=== PATIENT | male | born 1950 | race Caucasian/White ===

== ENCOUNTER → 2017-06-20 | Outpatient (CLI) | payer MEDICARE ==
[2017-06-20 14:08] LABS: CH 32.3; CHCM 33.7; HCT 49.4 % (39.0-53.0); HGB 16.1 gm/dL (13.0-17.5); MCH 31.4 pg (25.0-35.0); MCHC 32.6 g/dL (31.0-37.0); MCV 96.3 fL (80.0-100.0); Mean Platelet Volume 8.3; RBC 5.13 m/uL (4.30-5.90); RDW 14.2 % (11.5-15.5); WBC 7.2 k/uL (3.8-10.6)
[2017-06-20 15:44] LABS: ALT 150 U/L (21-72); AST 107 U/L (17-59); Alkaline Phosphatase 130 U/L (38-126); Anion Gap 9 mmol/L; Blood Urea Nitrogen 15 mg/dL (9-20); Calcium 9.7 mg/dL (8.4-10.2); Carbon Dioxide 24 mmol/L (22-30); Chloride 109 mmol/L (98-107); Cholesterol 205 mg/dL (<200); Glucose 90 mg/dL (74-99); HDL Cholesterol 41 mg/dL (40-60); Non-African American GFR(MDRD) 55 (>60 ml/min/1.73 sqM); Potassium 4.7 mmol/L (3.5-5.1); Sodium 142 mmol/L (137-145); Total Bilirubin 0.7 mg/dL (0.2-1.3)
[2017-06-20 20:11] LABS: Hepatitis C Virus IgG Ab Reactive (Negative)
== END | disposition home or self-care (01) ==
LOC: LABWHC1 13:09
PROVIDERS: ATTEND Internal Medicine
DX: Z00.00 Encounter for general adult medical examination without abnormal findings (principal); J44.9 Chronic obstructive pulmonary disease, unspecified; B18.2 Chronic viral hepatitis C; Z12.5 Encounter for screening for malignant neoplasm of prostate
CPT/HCPCS: 86803; 80061; 80053; 85027; 36415; G0103

== ENCOUNTER → 2017-06-21 | Outpatient (CLI) | payer MEDICARE | END | disposition home or self-care (01) | LOC: CPPFTMAIN 11:44 | PROVIDERS: ATTEND Internal Medicine | DX: J44.9 Chronic obstructive pulmonary disease, unspecified (principal); R94.2 Abnormal results of pulmonary function studies | CPT/HCPCS: 94060; 94726; 94729 ==

== ENCOUNTER → 2018-09-19 | Outpatient (CLI) | payer OTHER ==
--- NOTE | 2018-09-19 16:48 | US ---
EXAMINATION TYPE: US liver DATE OF EXAM: 09/19/2018 COMPARISON: CT 01/08/2016 CLINICAL HISTORY: Hep C. History of right side RCC. Right kidney and gallbladder surgically absent EXAM MEASUREMENTS: Liver Length: 12.1 cm Gallbladder Wall: Surgically absent CBD: 0.4 cm Right Kidney: Surgically absent Pancreas: Obscured by bowel gas Liver: Coarse, heterogeneous echotexture. Slightly nodular left lobe Gallbladder: Surgically absent Evidence for sonographic Nicole's sign: No CBD: wnl as visualized Right Kidney: Surgically absent IMPRESSION: 1. Some subtle nodularity normal sized liver. Cirrhosis should be considered.
== END | disposition home or self-care (01) ==
LOC: RADUSWWP 08:04
DX: K76.9 Liver disease, unspecified (principal); B19.20 Unspecified viral hepatitis C without hepatic coma
CPT/HCPCS: 76705

== ENCOUNTER → 2018-11-07 | Outpatient (CLI) | payer OTHER ==
[2018-11-07 12:52] LABS: Basophils % (A) 1 %; Eosinophils # (A) 0.3 k/uL (0-0.7); Eosinophils % (A) 5 %; HCT 46.7 % (39.0-53.0); HGB 14.7 gm/dL (13.0-17.5); Lymphocytes # (A) 1.6 k/uL (1.0-4.8); Lymphocytes % (A) 23 %; MCH 29.7 pg (25.0-35.0); MCHC 31.4 g/dL (31.0-37.0); MCV 94.6 fL (80.0-100.0); Mean Platelet Volume 7.4; Monocytes # (A) 0.3 k/uL (0-1.0); Monocytes % (A) 5 %; Neutrophils # (A) 4.5 k/uL (1.3-7.7); Neutrophils % (A) 66 %; Platelet Count 173 k/uL (150-450); RBC 4.94 m/uL (4.30-5.90); RDW 13.5 % (11.5-15.5); WBC 6.9 k/uL (3.8-10.6)
[2018-11-08 04:15] LABS: Albumin 4.4 g/dL (3.80-4.90); Albumin/Globulin Ratio 1.63 (1.20-2.10); Anion Gap 9.9 mmol/L (4.00-12.00); Calcium 9.4 mg/dL (8.7-10.3); Carbon Dioxide 23.1 mmol/L (21.6-31.8); Globulin 2.7 g/dL (1.6-3.3); Potassium 4.6 mmol/L (3.5-5.5); Total Bilirubin 0.4 mg/dL (0.3-1.2); Total Protein 7.1 g/dL (6.2-8.2)
== END | disposition home or self-care (01) ==
LOC: LABWHC1 11:32
DX: B18.2 Chronic viral hepatitis C (principal)
CPT/HCPCS: 36415; 80053; 82105; 85025; 87522

== ENCOUNTER → 2018-11-08 | Outpatient (CLI) | payer OTHER | END | disposition home or self-care (01) | LOC: LABWHC1 10:44 | DX: B18.2 Chronic viral hepatitis C (principal) | CPT/HCPCS: 36415; 86376 ==

== ENCOUNTER → 2021-06-24 | Outpatient (CLI) | payer MEDICARE ==
[2021-06-25 02:58] LABS: Hepatitis A Antibody IgM Non-Reactive (Non-Reactive); Hepatitis B Core IgM Non-Reactive (Non-Reactive); Hepatitis B Surface Antigen Non-Reactive (Non-Reactive); Hepatitis C IgG Antibody Reactive (Non-Reactive)
== END | disposition home or self-care (01) ==
LOC: LABWHC1 10:50
PROVIDERS: ATTEND Internal Medicine
DX: Z72.51 High risk heterosexual behavior (principal)
CPT/HCPCS: 36415; 80074; 87522

== ENCOUNTER → 2021-07-01 | Outpatient (CLI) | payer MEDICARE ==
--- NOTE | 2021-07-01 13:34 | XR ---
EXAMINATION TYPE: XR KUB DATE OF EXAM: 07/01/2021 COMPARISON: NONE HISTORY: Hematuria TECHNIQUE: One view abdominal series FINDINGS: The osseous structures are intact. The bowel gas pattern is nonspecific. Retained fecal debris along the right colon. Hypertrophic and degenerative changes spine. Arthropathy with. Postsurgical change right upper quadrant.. IMPRESSION: 1. Nonspecific abdomen.
== END | disposition home or self-care (01) ==
LOC: RADXRWHC 12:59
PROVIDERS: ATTEND Internal Medicine
DX: R31.9 Hematuria, unspecified (principal)
CPT/HCPCS: 74018

== ENCOUNTER → 2021-07-21 | Outpatient (CLI) | payer MEDICARE ==
--- NOTE | 2021-07-21 18:39 | US ---
EXAMINATION TYPE: US kidneys/renal and bladder DATE OF EXAM: 07/21/2021 COMPARISON: None CLINICAL HISTORY: 71-year-old male R31.29 microscopic hematuria/ history of right renal CA with right kidney surgically removed TECHNIQUE: Multiple sonographic images of the kidneys and bladder are obtained. FINDINGS: EXAM MEASUREMENTS: Right Kidney: Surgically absent Left Kidney: 12.8 x 5.4 x 4.9 cm Right Kidney: Surgically absent Left Kidney: Extrarenal pelvis is noted with a small parapelvic cyst measuring 1.1 x 1.1 cm . No hafsa ceal dilatation to suggest hydronephrosis. Bladder: Trabeculated and thickened bladder wall. Enlarged prostate. The median lobe protrudes into t he base of the bladder. Possible bladder wall irregularity at right ureteral junction measuring 1.0 c m Bilateral Jets seen: No IMPRESSION: 1. Status post right nephrectomy. 2. No hydronephrosis on the left. 3. Trabeculated and mildly thickened bladder wall suggesting bladder wall hypertrophy from chronic bl adder outlet obstruction. Correlate for symptoms of BPH especially given the hypertrophy medially lob e of the prostate gland protruding into the base of the bladder. Correlate with PSA values. 4. A 1 cm mural based nodule near the right ureteral orifice. Correlate with urine cytology and direc t visualization as clinically indicated to exclude a urothelial lesion.
== END | disposition home or self-care (01) ==
LOC: RADUSWWP 15:16
PROVIDERS: ATTEND Internal Medicine
DX: N32.89 Other specified disorders of bladder (principal); N40.0 Benign prostatic hyperplasia without lower urinary tract symptoms
CPT/HCPCS: 76770

== ENCOUNTER → 2021-07-30 | Outpatient (CLI) | payer MEDICARE ==
--- NOTE | 2021-07-30 16:26 | CTL ---
EXAMINATION TYPE: CT Low Dose Lung DATE OF EXAM ORDERED: 07/30/2021 HISTORY: . Lung cancer screening CT DLP: 98.[address] CTDI: 2.5 mGy Automated exposure control for dose reduction was used. SCREENING VISIT: Baseline COMPARISON: None TECHNIQUE: Low dose computed tomography scan was performed through the chest at 1 mm thick sections a nd reconstructed images in multiple planes at 1 mm and [address] DIAGNOSTIC QUALITY: Satisfactory FINDINGS: LUNG NODULES: Present, detailed below: In the right middle lobe there is 5.3 x 4.2 mm nodule axial image 174 LUNGS: COPD: Severity: Mild Fibrosis: Severity: ModerateBiapical Lymph nodes: No greater than 1 cm Other findings: None RIGHT PLEURAL SPACE: Effusion: None Calcification: None Thickening: None Pneumothorax: None LEFT PLEURAL SPACE: Effusion: None Calcification: None Thickening: None Pneumothorax: None HEART: Heart Size: Normal Coronary calcification: None Pericardial effusion: None OTHER FINDINGS: Upper abdomen: Pneumobilia is present which was present on [address] Gallbladder is surgical ly absent. Bony thorax: No significant abnormality. Supraclavicular region: No significant abnormality. Other: Subareolar flame-shaped gynecomastia is present. IMPRESSION: Mild emphysematous change. Mild biapical pleural/parenchymal scarring. Single small right middle lobe nodule. CT LUNG RAD AND CT CHEST RECOMMENDATION: Lung-Rad 2 Benign Appearance or Behavior: Continue annual sc reening with LDCT in 12 months. S Modifier (other clinically significant findings): None
== END | disposition home or self-care (01) ==
LOC: RADCTMAIN 15:16
PROVIDERS: ATTEND Internal Medicine
DX: Z12.2 Encounter for screening for malignant neoplasm of respiratory organs (principal); J98.4 Other disorders of lung; J43.9 Emphysema, unspecified; R91.1 Solitary pulmonary nodule
CPT/HCPCS: 71271

== ENCOUNTER → 2021-08-27 | Outpatient (CLI) | payer MEDICARE ==
--- NOTE | 2021-08-27 11:14 | CT ---
EXAMINATION TYPE: CT urogram wo/w con DATE OF EXAM: 08/27/2021 COMPARISON: CT abdomen and pelvis January 08, 2016 HISTORY: Microscopic hematuria. Bladder neoplasm. History of nephrectomy for renal cancer. CT DLP: 1671.3 mGycm, Automated Exposure Control for Dose Reduction was Utilized. CONTRAST: CT scan of the abdomen and pelvis is performed without oral and without and with IV Contrast, patient injected with 100 ml mL of Isovue 300. Urogram protocol with 3-D reconstructed images created on an independent workstation and reviewed FINDINGS: KUB: Right sided nephrectomy changes redemonstrated. Noncontrast images show no left-sided renal radha culi. Postcontrast images show left-sided corticomedullary uptake and excretion with some left pelvic fullness but no calyceal dilatation. There are tiny central parapelvic cysts. Findings consistent wi th extrarenal pelvis. There is satisfactory opacification of the left ureter on delayed images withou t calculus or mass. Urinary bladder shows no suspicious intraluminal mass or wall thickening. No intr aluminal calculus in the bladder. LUNG BASES: No significant abnormality is appreciated. LIVER/GB: Central pneumobilia is redemonstrated. Cholecystectomy clips are again seen. PANCREAS: No significant abnormality is seen. SPLEEN: No significant abnormality is seen. ADRENALS: No significant abnormality is seen. BOWEL: A few sigmoid colonic diverticula. Focal fluid-filled slightly dilated small bowel loop in the right mid abdomen anteriorly near site of surgical sutures is redemonstrated. No additional small or large bowel dilatation PROSTATE/SEMINAL VESICLES: Mildly enlarged prostate consistent with BPH bulging and posterior bladder base. LYMPH NODES: No greater than 1cm abdominal or pelvic lymph nodes are appreciated. OSSEOUS STRUCTURES: Mild disc space narrowing and mild to moderate anterior spurring L3-L4 level. Fac et arthropathy lower lumbar levels. OTHER: Mild to moderate calcified plaque of the aorta extends into iliac branch vessels. Asymmetric r ight rectus muscular atrophy redemonstrated. IMPRESSION: No suspicious findings seen to account for patient's symptoms of new microhematuria. No s ignificant change from prior CT.
== END | disposition home or self-care (01) ==
LOC: RADCTMAIN 08:43
PROVIDERS: ATTEND Urology
DX: R31.29 Other microscopic hematuria (principal); Z90.5 Acquired absence of kidney; Z85.528 Personal history of other malignant neoplasm of kidney
CPT/HCPCS: 82565; 84520; 74178; 36415; 74400; Q9967

== ENCOUNTER → 2021-09-04 | Outpatient (CLI) | payer MEDICARE ==
--- NOTE | 2021-09-04 08:24 | US ---
EXAMINATION TYPE: US abdomen complete DATE OF EXAM: 09/04/2021 COMPARISON: NONE CLINICAL HISTORY: R74.8 ELEVATED ALKALINE PHOSPHATASE LEVEL. Patient has history of renal cancer, rem emmanuel GB. EXAM MEASUREMENTS: Liver Length: 12.7 cm Gallbladder Wall: Surgically absent CBD: 0.4 cm Spleen: 10.7 cm Right Kidney: Surgically absent Left Kidney: 12.9x6.4x6.0 cm Pancreas: wnl Liver: wnl Gallbladder: Surgically absent Evidence for sonographic Nicole's sign: No CBD: wnl Spleen: wnl Right Kidney: Surgically absent Left Kidney: extrarenal pelvis, 1.1x0.8x0.7cm parapelvic cyst Upper IVC: wnl Abd Aorta: Slightly calcified. The liver is homogenous. The intrahepatic portion of the IVC and proximal abdominal aorta are within normal limits. There is no evidence of cholelithiasis. Common bile duct is unremarkable. The visu alized portions of the pancreas are homogenous. The spleen is unremarkable. No renal lesions are se en. IMPRESSION: Right kidney is surgically absent. Left parapelvic cyst versus extrarenal pelvis.
== END | disposition home or self-care (01) ==
LOC: RADUSWWP 07:25
PROVIDERS: ATTEND Internal Medicine
DX: Z85.528 Personal history of other malignant neoplasm of kidney (principal); Z90.49 Acquired absence of other specified parts of digestive tract; Z90.5 Acquired absence of kidney
CPT/HCPCS: 76700

== ENCOUNTER → 2023-01-06 | Outpatient (CLI) | payer MEDICARE ==
[2023-01-06 12:11] LABS: INR 1.1 (<1.2); Partial Thromboplastin Time 23.4 sec (22.0-30.0); Prothrombin Time 11.3 sec (9.0-12.0)
[2023-01-06 14:59] LABS: Basophils # (A) 0.03 X 10*3/uL (0.00-0.10); Basophils % (A) 0.4 %; Eosinophils # (A) 0.38 X 10*3/uL (0.04-0.35); Eosinophils % (A) 5.2 %; HCT 34.4 % (39.6-50.0); HGB 10.2 g/dL (13.0-17.0); Immature Grans, Automated 0.7 %; Lymphocytes # (A) 0.75 X 10*3/uL (0.90-5.00); Lymphocytes % (A) 10.3 %; MCH 28.3 pg (27.0-32.0); MCHC 29.7 g/dL (32.0-37.0); MCV 95.3 fL (80.0-97.0); Mean Platelet Volume 11.4 fL (9.5-12.2); Monocytes % (A) 6.9 %; NRBC Per 100 WBC 0 /100 WBCS (0.0-0.0); Neutrophils # (A) 5.55 X 10*3/uL (1.80-7.70); Neutrophils % (A) 76.5 %; Platelet Count 302 X 10*3/uL (140-440); RBC 3.61 X 10*6/uL (4.40-5.60); RDW 17.1 % (11.5-14.5); WBC 7.26 X 10*3/uL (4.50-10.00)
[2023-01-06 15:48] LABS: African American GFR (CKD) 65.2 (60.0-200.0); Albumin 3.1 g/dL (3.8-4.9); Albumin/Globulin Ratio 0.65 (1.60-3.17); Anion Gap 14.4 mmol/L (10.00-18.00); BUN/Creat Ratio 11.98 Ratio (12.00-20.00); Blood Urea Nitrogen 15.1 mg/dL (9.0-27.0); Calcium 9.3 mg/dL (8.7-10.3); Carbon Dioxide 20.6 mmol/L (20.0-27.5); Globulin 4.8 g/dL (1.6-3.3); Non-African American GFR(CKD) 56.2 (60.0-200.0); Potassium 4.7 mmol/L (3.5-5.5); Total Bilirubin 1.4 mg/dL (0.30-1.20); Total Protein 7.9 g/dL (6.2-8.2)
== END | disposition home or self-care (01) ==
LOC: LABWHC1 11:07
PROVIDERS: ATTEND Internal Medicine Hematology & Oncology
DX: N18.9 Chronic kidney disease, unspecified (principal); R16.0 Hepatomegaly, not elsewhere classified; R18.8 Other ascites
CPT/HCPCS: 36415; 80053; 82105; 83615; 85025; 85610; 85730

== ENCOUNTER 2023-01-20 08:40 | Day surgery (SDC) | payer MEDICARE ==
[~2023-01-20 08:40] MED LIST: ALPRAZolam 0.25 MG TAB PO PRN; HYDROmorphone 0.5 MG/0.5 ML SYRINGE IVP PRN; MICROFIBRILLAR COLLAGEN HEMOST 0.5 GM PACK TOPICAL ONE
[2023-01-20 09:29] LABS: INR 1.2 (<1.2); Prothrombin Time 12.2 sec (9.0-12.0)
[2023-01-20 09:30] LABS: Mean Platelet Volume 8.3; Platelet Count 302 k/uL (150-450)
[2023-01-20] MEDS: ALBUMIN HUMAN 25% 50 ML in EMPTY BAG 1 BAG IVPB SCH ×2 (10:46→10:47)
--- NOTE | 2023-01-20 12:07 | US ---
EXAMINATION TYPE: US paracentesis abd w/image DATE OF EXAM: 01/20/2023 10:47 AM CLINICAL INDICATION:Male, 72 years old with history of K76.89; COMPARISON: CT 12/29/2022 ATTENDING: Dr. oRbbi Gant PROCEDURE: Informed consent was obtained. The risks of the procedure were extensively explained incl uding risk of damage to surrounding bowel with perforation and need for additional procedures. Proced ure was performed in the ultrasound procedure suite. Ultrasound imaging of the abdomen demonstrate as citic fluid. An appropriate access site was localized to the right lower abdomen. Timeout was taken p er protocol. The skin was prepped and draped in the usual sterile fashion and then locally anesthetiz ed with 1% lidocaine. The peritoneal cavity was then accessed via a 5-Kazakh one-step needle/cathete r. Approximately 60 cc of clear straw-colored fluid was obtained and sent to lab for analysis Postpr ocedural imaging of the abdomen demonstrate a minimal amount of abdominal fluid. Patient tolerated procedure well without immediate complication. Hemostasis at the procedural site w as obtained with a sterile bandage placed. The patient was monitored in the holding area following th e procedure and was subsequently sent to CT for CT guided biopsyin stable condition. IMPRESSION: Ultrasound guided paracentesis, with approximately 60 cc of clear straw-colored fluid drained for eleuterio gnostic purposes. Pathology results pending. No immediate complications were evident.
--- NOTE | 2023-01-20 12:36 | CT ---
EXAMINATION TYPE: CT biopsy liver DATE OF EXAM: 01/20/2023 11:53 AM CLINICAL INDICATION:Male, 72 years old with history of K76.89; COMPARISON: CT chest and pelvis 12/29/2022 CT DLP: 1675 mGycm, Automated exposure control for dose reduction was used. Contrast used: none Oral contrast used: none ATTENDING: Dr. Robbi Gant TECHNIQUE: CT guided percutaneous biopsy of using coaxial method. Moderate conscious sedation was used. The chani ent was monitored by a qualified trained nurse independent of the Radiologist during sedation. The Ra diologist intra-service time with the patient under sedation was [address] or more CT dose redu ction strategies were utilized during this examination. Total fluoroscopy time was seconds. FINDINGS: The procedure was explained to the patient including risks of bleeding, bruising, infection, damage t o nearby organs and need for additional therapy including potential surgery. All questions were answ ered and consent was obtained. The previous studies were reviewed. The patient was placed on the CT couch in the left lateral decub itus The overlying skin was marked and prepped using sterile method. Timeout was taken per protocol. Following administration of Dilaudid and local anesthesia a coaxial needle was introduced on the lakes[place] er sixth hepatic segment. The coaxial needle tip was directed into the mass with CT guidance. Multi ple coaxial biopsies were then obtained. Gelfoam was administered. The biopsy samples were sent in ap propriate containers for lab analysis. Following the procedure the needle was removed and sterile dressing was applied to the percutaneous site. Post biopsy imaging demonstrated no evidence of hemor rhage, gas consistent with Gelfoam noted. Patient was taken for postprocedure observation in stable c ondition. IMPRESSIONS: Status post percutaneous liver mass biopsy as described above. Pathology results pending.
[2023-01-20 16:13] VITALS: RESP 18
[2023-01-20 16:19] VITALS: BP 112/68; PULSE 87; TEMP 97.5
[2023-01-20 23:28] LABS: Appearance,BF Slightly Hazy
[2023-01-21 00:59] LABS: Albumin, Fluid Source Peritoneal Fluid
== END 2023-01-20 16:45 | disposition home or self-care (01) ==
LOC: RADPROMAIN 08:40 → 6NMEDSUR 10:35 → RADPROMAIN 16:45
PROVIDERS: ATTEND Internal Medicine Hematology & Oncology
DX: K76.89 Other specified diseases of liver (principal); R18.8 Other ascites
CPT/HCPCS: 82042; 89050; 85049; 85610; 87070; 87205; 87075; 36415; 49083; 47000; J1170; 77012; 88108; 88305; 88307; 88341; 88342

== ENCOUNTER 2023-01-25 12:53 | Inpatient (IN) | payer MEDICARE ==
--- NOTE | 2023-01-25 14:41 | ED ---
Nausea/Vomiting/Diarrhea HPI - General Source: patient, family, RN notes reviewed Mode of arrival: ambulatory Limitations: no limitations - History of Present Illness MD complaint: nausea, vomiting, diarrhea, abdominal pain <Verna López - Last Filed: 01/25/23 14:38> <Ryann Blanc - Last Filed: 01/25/23 19:41> - General Chief complaint: Nausea/Vomiting/Diarrhea Stated complaint: Weakness Time Seen by Provider: 01/25/23 14:38 - History of Present Illness Initial comments: This is a 72-year-old male who presents to the emergency department for abdominal pain, nausea, vomiting, and confusion. Patient presents with his friend who states that he seems to be more confused than normal. He is also a jaundiced-appearing to him. On 01/20, the patient had a paracentesis and a liver biopsy. He reportedly had 4 L of fluid drained. He also states that he has a large mass on the liver and the biopsy is currently pending. (Verna López) HPI as above reviewed. Patient also reports cough and workup by triage nurse does note low-grade fever and mild tachycardia. He reports that since being discharged she has noticed and increase in yellow skin and significant darkening of his urine to a dark reddish orange color. His friend at the bedside also does note some periods of confusion. In addition to his newly diagnosed metastatic liver cancer he has a past medical history significant for renal cell carcinoma status post right nephrectomy, COPD, hypertension and arthritis. (Ryann Blanc) - Related Data Home Medications Medication Instructions Recorded Confirmed No Known Home Medications 01/25/23 01/25/23 Allergies Allergy/AdvReac Type Severity Reaction Status Date / Time No Known Allergies Allergy Verified 01/25/23 16:25 Review of Systems ROS Other: All systems not noted in ROS Statement are negative. <Verna López - Last Filed: 01/25/23 14:38> ROS Other: All systems not noted in ROS Statement are negative. <Ryann Blanc - Last Filed: 01/25/23 19:41> ROS Statement: Those systems with pertinent positive or pertinent negative responses have been documented in the HPI. Past Medical History Past Medical History: Cancer, COPD, Hypertension, Osteoarthritis (OA) Additional Past Medical History / Comment(s): hx. of kidney & skin cancer, augustus tigo, liver mass History of Any Multi-Drug Resistant Organisms: None Reported Past Surgical History: Appendectomy, Cholecystectomy Additional Past Surgical History / Comment(s): RIGHT NEPHRECTOMY, "bile duct cut in 2" with gallbladder surgery Past Anesthesia/Blood Transfusion Reactions: No Reported Reaction Past Psychological History: No Psychological Hx Reported Smoking Status: Former smoker Past Alcohol Use History: None Reported Past Drug Use History: None Reported - Past Family History Sister(s) Family Medical History: Deep Vein Thrombosis (DVT) Additional Family Medical History / Comment(s): BLOOD CLOTS <Verna Lóepz - Last Filed: 01/25/23 14:38> General Exam Limitations: no limitations <Verna López - Last Filed: 01/25/23 14:38> Limitations: no limitations General appearance: alert, in no apparent distress Head exam: Present: atraumatic, normocephalic, normal inspection Eye exam: Present: normal appearance, PERRL, EOMI, scleral icterus. Absent: conjunctival injection, periorbital swelling ENT exam: Present: normal exam, mucous membranes moist Respiratory exam: Present: rhonchi (Scattered), decreased breath sounds (Bibasal). Absent: respiratory distress, wheezes, rales, stridor, accessory muscle use Cardiovascular Exam: Present: normal rhythm, tachycardia (mild), normal heart sounds. Absent: systolic murmur, diastolic murmur, rubs, gallop, clicks GI/Abdominal exam: Present: soft, distended, normal bowel sounds. Absent: tenderness Expanded GI/Abdominal exam: Present: ascites Rectal exam: Present: deferred Extremities exam: Present: pedal edema (Trace bilateral) Back exam: Present: normal inspection Neurological exam: Present: alert, oriented X3, other (Forgetful at times) Psychiatric exam: Present: flat affect Skin exam: Present: warm, dry, other (Jaundiced). Absent: rash <Ryann Blanc - Last Filed: 01/25/23 19:41> - General Exam Comments Initial Comments: Visual Physical Exam Vital signs reviewed General: Well-appearing, nontoxic, no acute distress. Head: Normocephalic, atraumatic Eyes: PERRLA, EOMI ENT: Airway patent Chest: Nonlabored breathing Skin: No visual rash, normal skin tone Neuro: Alert and oriented 3 Musculoskeletal: No gross abnormalities (Vogley,Verna) Course Vital Signs 01/25/23 01/25/23 13:06 18:27 Temperature 99.8 F H Pulse Rate 117 H 99 Respiratory 22 17 Rate Blood Pressure 93/54 94/50 O2 Sat by Pulse 97 96 Oximetry Procedures - Sepsis Sepsis Focused Exam #1 Time Sepsis Criteria Met: 16:42 Sepsis Focused Exam Date: 01/25/23 Sepsis Focused Exam Time: 16:42 Sepsis Focused Exam Complete: Yes Capillary Refill: < 2 Seconds: Fingers Peripheral Pulses: Normal: Radial (R) Skin Color: Jaundice Respiratory Exam: rhonchi (scattered) Cardiovascular Exam: tachycardia (mild), normal heart sounds <Ryann Blanc - Last Filed: 01/25/23 19:41> Medical Decision Making - Lab Data Result diagrams: 01/25/23 15:42 01/25/23 15:42 - Radiology Data Radiology results: report reviewed, image reviewed <Ryann Blanc - Last Filed: 01/25/23 19:41> - Medical Decision Making Was pt. sent in by a medical professional or institution (, PA, NURSES SUPERINTENDENT, urgent care, hospital, or fdc...) When possible be specific @ -No Did you speak to anyone other than the patient for history (EMS, parent, family, police, friend...)? What history was obtained from this source @ -No Did you review nursing and triage notes (agree or disagree)? Why? @ -I reviewed and agree with nursing and triage notes Were old charts reviewed (outside hosp., previous admission, EMS record, old EKG, old radiological studies, urgent care reports/EKG's, fdc records)? Report findings @ -Yes, I reviewed CT abdomen chest and pelvis from 01/13/2023 and most recent labs from December 2022 Differential Diagnosis (chest pain, altered mental status, abdominal pain women, abdominal pain men, vaginal bleeding, weakness, fever, dyspnea, syncope, headache, dizziness, GI bleed, back pain, seizure, CVA, palpatations, mental health, musculoskeletal)? @ -Differential Abdominal Pain Men: Appendicitis, cholecystitis, diverticulosis, ischemic bowel, pancreatitis, hepatitis, UTI, gastroenteritis, AAA, incarcerated hernia, bowel obstruction, constipation, inflammatory bowel, hepatitis, peptic ulcer disease, splenic infarction, perforated viscus, testicular torsion, this is not meant to be an all-inclusive list Differential Altered Mental Status: Hypoglycemia, DKA, hypercapnia, ETOH, overdose, CO poisoning, trauma, myxedema coma, HTN encephalopathy, infection, encephalitis, psychosis, intercranial he morrhage, hepatic encephalopathy, meningitis, CVA, this is not meant to be an all-inclusive list EKG interpreted by me (3pts min.). @ -None done X-rays interpreted by me (1pt min.). @ -Chest x-ray two-view: No acute cardiopulmonary process, and no effusion, focal consolidation or atelectasis. CT interpreted by me (1pt min.). @ -CT abdomen and pelvis without contrast: Large new mass to liver consistent with abscess when clinically correlated and trace atelectasis. No obstruction or free air. U/S interpreted by me (1pt. min.). @ -None done What testing was considered but not performed or refused? (CT, X-rays, U/S, labs)? Why? @ -CT abdomen and pelvis with contrast considered but deferred due to impaired renal function What meds were considered but not given or refused? Why? @ -None Did you discuss the management of the patient with other professionals (professionals i.e. , PA, NURSES SUPERINTENDENT, lab, RT, psych nurse, social service assistant, php programmer, teacher, air defence officer, case finishing machine adjuster)? Give summary @ -No Was smoking cessation discussed for >3mins.? @ -No Was critical care preformed (if so, how long)? @ -No Were there social determinants of health that impacted care today? How? (Homelessness, low income, unemployed, alcoholism, drug addiction, transportation, low edu. Level, literacy, decrease access to med. care, correction, rehab)? @ -No Was there de-escalation of care discussed even if they declined (Discuss DNR or withdrawal of care, Hospice)? DNR status @ -No What co-morbidities impacted this encounter? (DM, HTN, Smoking, COPD, CAD, Cancer, CVA, ARF, Chemo, Hep., AIDS, mental health diagnosis, sleep apnea, morbid obesity)? @ -Recently diagnosed metastatic liver cancer Was patient admitted / discharged? Hospital course, mention meds given and route, prescriptions, significant lab abnormalities, going to OR and other pertinent info. @ - 72-year-old male who presents to the emergency department for abdominal pain, nausea, vomiting, and confusion. He recently underwent paracentesis and liver biopsy 4 days ago and was not having abdominal pain nausea or vomiting prior to this he also reports increased cough and congestion since the exam as well. Orders placed by triaging provider reviewed. In addition to these orders will add urinalysis, blood culture, chest x-ray and CT of the abdomen and p dewayne. Chest x-ray negative. Laboratory studies reveal CBC with anemia hemoglobin at 10.1. Significant leukocytosis WBC 19.2 neutrophils 18.3 lymphocytes 0.4. Platelets normal. Coags show elevated INR at 1.2 normal PT normal PTT CMP demonstrates significant abnormalities with HPI on CKG stage III BUN 46 creatinine 2.02, potassium 5.3 lactic acid elevated 6.3 bilirubin 5.8 AST 397 a LT 92 alkaline phosphate 624 ammonia 55 amylase 112 lipase normal calcium normal sodium and chloride and anion gap normal. Carbon dioxide low 16. Awaiting urinalysis. Computed tomography scan changed from with contest to without due to acute renal failure. IV fluid bolus ordered. Computed tomography scan demonstrates new large mass consistent with abscess to liver likely secondary to corneal biopsy recently. Still awaiting urinalysis. Will start on Unasyn. Blood pressure low to low normal with mild tachycardia 105-110s will give second fluid bolus and placed on maintenance fluids of 130 mL of normal saline an hour. No indication for pressors or critical care admission. Findings discussed with patient at length. Spoke with Dr. Etienne patient's primary care provider regarding workup , he is accepting of admission and advised consult to Dr. Dale patient's oncologist in addition to consult to Gen. surgery already placed. We'll admit patient in fair but guarded condition to medical surgical unit with telemetry for sepsis secondary to liver abscess under Dr. Etienne with consult to oncology and general surgery. Undiagnosed new problem with uncertain prognosis? @ -No Drug Therapy requiring intensive monitoring for toxicity (Heparin, Nitro, Insul in, Cardizem)? @ -No Were any procedures done? @ -No Diagnosis/symptom? @ -Sepsis due to hepatic abscess Acute, or Chronic, or Acute on Chronic? @ -Acute Uncomplicated (without systemic symptoms) or Complicated (systemic symptoms)? @ -Complicated Side effects of treatment? @ -No Exacerbation, Progression, or Severe Exacerbation? @ -No Poses a threat to life or bodily function? How? (Chest pain, [place], [place], pneumonia, PE, COPD, DKA, ARF, appy, cholecystitis, CVA, Diverticulitis, Homicidal, Suicidal, threat to staff... and all critical care pts) @ -Yes, sepsis at high risk for septic shock. Diagnosis/symptom? @ -Acute liver failure Acute, or Chronic, or Acute on Chronic? @ -Acute Uncomplicated (without systemic symptoms) or Complicated (systemic symptoms)? @ -Complicated Side effects of treatment? @ -none Exacerbation, Progression, or Severe Exacerbation] @ -no Poses a threat to life or bodily function? @ -Yes, at risk for worsening hepatic failure Case discussed with Dr. Jensen ([facility]) - Lab Data Lab Results 01/25/23 01/25/23 01/25/23 Range/Units 15:42 15:42 15:42 WBC 19.2 H (3.8-10.6) k/uL RBC 3.42 L (4.30-5.90) m/uL Hgb 10.1 L (13.0-17.5) gm/dL Hct 31.8 L (39.0-53.0) % MCV 93.1 (80.0-100.0) fL MCH 29.4 (25.0-35.0) pg MCHC 31.6 (31.0-37.0) g/dL RDW 15.6 H (11.5-15.5) % Plt Count 318 (150-450) k/uL MPV 9.7 Neutrophils % 96 % Lymphocytes % 2 % Monocytes % 1 % Eosinophils % 0 % Basophils % 0 % Neutrophils # 18.3 H (1.3-7.7) k/uL Lymphocytes # 0.4 L (1.0-4.8) k/uL Monocytes # 0.2 (0-1.0) k/uL Eosinophils # 0.1 (0-0.7) k/uL Basophils # 0.0 (0-0.2) k/uL Hypochromasia Moderate PT 12.0 (9.0-12.0) sec INR 1.2 H (<1.2) APTT 24.1 (22.0-30.0) sec Sodium 138 (137-145) mmol/L Potassium 5.3 H (3.5-5.1) mmol/L Chloride 104 (98-107) mmol/L Carbon Dioxide 16 L (22-30) mmol/L Anion Gap 18 mmol/L BUN 46 H (9-20) mg/dL Creatinine 2.02 H (0.66-1.25) mg/dL Est GFR (CKD-EPI)AfAm 37 (>60 ml/min/1.73 sqM) Est GFR (CKD-EPI)NonAf 32 (>60 ml/min/1.73 sqM) Glucose 137 H (74-99) mg/dL Lactic Ac Sepsis Rflx Plasma Lactic Acid Dereck (0.7-2.0) mmol/L Calcium 8.7 (8.4-10.2) mg/dL Total Bilirubin 5.8 H (0.2-1.3) mg/dL AST 397 H (17-59) U/L ALT 92 H (4-49) U/L Alkaline Phosphatase 624 H (38-126) U/L Ammonia (<30) umol/L Total Protein 7.8 (6.3-8.2) g/dL Albumin 3.0 L (3.5-5.0) g/dL Amylase 112 H (30-110) U/L Lipase 119 (23-300) U/L 01/25/23 01/25/23 Range/Units 16:17 17:31 WBC (3.8-10.6) k/uL RBC (4.30-5.90) m/uL Hgb (13.0-17.5) gm/dL Hct (39.0-53.0) % MCV (80.0-100.0) fL MCH (25.0-35.0) pg MCHC (31.0-37.0) g/dL RDW (11.5-15.5) % Plt Count (150-450) k/uL MPV Neutrophils % % Lymphocytes % % Monocytes % % Eosinophils % % Basophils % % Neutrophils # (1.3-7.7) k/uL Lymphocytes # (1.0-4.8) k/uL Monocytes # (0-1.0) k/uL Eosinophils # (0-0.7) k/uL Basophils # (0-0.2) k/uL Hypochromasia PT (9.0-12.0) sec INR (<1.2) APTT (22.0-30.0) sec Sodium (137-145) mmol/L Potassium (3.5-5.1) mmol/L Chloride (98-107) mmol/L Carbon Dioxide (22-30) mmol/L Anion Gap mmol/L BUN (9-20) mg/dL Creatinine (0.66-1.25) mg/dL Est GFR (CKD-EPI)AfAm (>60 ml/min/1.73 sqM) Est GFR (CKD-EPI)NonAf (>60 ml/min/1.73 sqM) Glucose (74-99) mg/dL Lactic Ac Sepsis Rflx Y Plasma Lactic Acid Dereck 6.3 H* (0.7-2.0) mmol/L Calcium (8.4-10.2) mg/dL Total Bilirubin (0.2-1.3) mg/dL AST (17-59) U/L ALT (4-49) U/L Alkaline Phosphatase (38-126) U/L Ammonia 55 H (<30) umol/L Total Protein (6.3-8.2) g/dL Albumin (3.5-5.0) g/dL Amylase (30-110) U/L Lipase (23-300) U/L Disposition <Verna López - Last Filed: 01/25/23 14:38> Time of Disposition: 19:15 <Ryann Blanc - Last Filed: 01/25/23 19:41> Clinical Impression: Sepsis, Hepatic abscess Disposition: ADMITTED IP TO THIS [facility] Condition: Fair Referrals: Jorge Etienne DO [Primary Care Provider] - 1-2 days
[2023-01-25] MEDS ORDERED: SODIUM CHLORIDE 0.9% 1,000 ML IV STA ×2 (16:04→19:02)
[2023-01-25 16:25] LABS: Basophils % (A) 0 %; Eosinophils # (A) 0.1 k/uL (0-0.7); Eosinophils % (A) 0 %; HCT 31.8 % (39.0-53.0); HGB 10.1 gm/dL (13.0-17.5); Hypochromasia Moderate; Lymphocytes # (A) 0.4 k/uL (1.0-4.8); Lymphocytes % (A) 2 %; MCH 29.4 pg (25.0-35.0); MCHC 31.6 g/dL (31.0-37.0); MCV 93.1 fL (80.0-100.0); Mean Platelet Volume 9.7; Monocytes # (A) 0.2 k/uL (0-1.0); Monocytes % (A) 1 %; Neutrophils # (A) 18.3 k/uL (1.3-7.7); Neutrophils % (A) 96 %; Platelet Count 318 k/uL (150-450); RBC 3.42 m/uL (4.30-5.90); RDW 15.6 % (11.5-15.5); WBC 19.2 k/uL (3.8-10.6)
[2023-01-25 16:41] LABS: INR 1.2 (<1.2)
[2023-01-25 16:42] LABS: Partial Thromboplastin Time 24.1 sec (22.0-30.0)
--- NOTE | 2023-01-25 16:46 | XR ---
EXAMINATION TYPE: XR chest 2V DATE OF EXAM: 01/25/2023 4:24 PM COMPARISON: Chest radiographs from 09/11/2013. TECHNIQUE: XR chest 2V Frontal and lateral views of the chest. CLINICAL INDICATION:Male, 72 years old with history of cough; FINDINGS: Lungs/Pleura: There is no evidence of pleural effusion, focal consolidation, or pneumothorax. Pulmonary vascularity: Unremarkable. Heart/mediastinum: Cardiomediastinal silhouette is unremarkable. Musculoskeletal: No acute osseous pathology. IMPRESSION: No acute cardiopulmonary disease/process.
[2023-01-25 17:16] LABS: Calcium 8.7 mg/dL (8.4-10.2); Potassium 5.3 mmol/L (3.5-5.1); Total Bilirubin 5.8 mg/dL (0.2-1.3); Total Protein 7.8 g/dL (6.3-8.2)
[2023-01-25 17:31] LABS: Lactic Acid, Venous 6.3 mmol/L (0.7-2.0)
[2023-01-25] MEDS ORDERED: AMPICILLIN-SULBACTAM 3 GM in SODIUM CHLORIDE 0.9% 100 ML IVPB STA ×2 (18:27→19:09)
--- NOTE | 2023-01-25 18:41 | CT ---
EXAMINATION TYPE: CT abdomen pelvis wo con CT DLP: 572.1 mGycm, Automated exposure control for dose reduction was used. DATE OF EXAM: 01/25/2023 6:16 PM COMPARISON: CT abdomen pelvis most recent from 12/29/2022. CLINICAL INDICATION:Male, 72 years old with history of Ascites, fever and leukocytosis; abdominal hussein n, nausea, weakness, jaundice TECHNIQUE: Axial CT of the abdomen and pelvis. Sagittal and coronal reformats were created on a [employer] workstation. Contrast used: None Oral contrast used: without Oral Contrast FINDINGS: LOWER CHEST: Unremarkable ABDOMEN LIVER: Heterogenous masses within the liver are less well appreciated on this noncontrast exam. Ther e is a new complex mass with gas measuring 7.7 x 6.1 cm. In the right hepatic lobe near the dome. Additionally there is pneumobilia present throughout the liver which is somewhat similar to prior on 12/29/2022. GALLBLADDER AND BILE DUCTS: Unremarkable. PANCREAS: Unremarkable. SPLEEN: Enlarged measuring up to 15.1 cm. ADRENAL GLANDS: Unremarkable. KIDNEYS AND URETERS: No evidence of hydronephrosis or renal calculus. The ureters are unremarkable. PELVIS BLADDER: Unremarkable REPRODUCTIVE: Unremarkable. ABDOMEN & PELVIS STOMACH AND BOWEL: No evidence of bowel obstruction. Postsurgical changes to the ulnar lower quadrant . PERITONEUM/RETROPERITONEUM: There is trace free fluid throughout the abdomen most pronounced on the r ight. No evidence of free air. VASCULATURE: Mild atherosclerotic calcifications are present throughout the abdominal aorta and its b ranches. No evidence of aortic aneurysm. Evaluation of the liver vasculature for tumor thrombus is li mited without IV contrast. MUSCULOSKELETAL: No acute osseous abnormalities LYMPH NODES: Upper abdominal lymph nodes measuring up to 12 mm in short axis in the gastrohepatic/por ta hepatis region. These are not significantly changed from prior. SOFT TISSUE/ABDOMINAL WALL: Unremarkable IMPRESSION: 1. Interval development of suspected intrahepatic abscess given history of leukocytosis and fever. F indings likely represent necrosis of prior mass with superimposed infection. The remainder of the mas s is suboptimally evaluated given lack of IV contrast. 2. Similar pneumobilia dating back to prior on 01/10/2023. 3. Trace ascites which is similar to prior. 4. Limited evaluation of the intrahepatic vasculature. 5. Splenomegaly.
[2023-01-25] MEDS ORDERED: NALOXONE 0.4 MG/ML 1 ML VIAL IV PRN (19:02)
[2023-01-25] MEDS ORDERED: ACETAMINOPHEN TAB 325 MG TAB PO PRN (19:02)
[2023-01-25] MEDS: SODIUM CHLORIDE 0.9% 1,000 ML IV SCH (20:00)
[2023-01-26 01:14] LABS: Appearance,Urine Cloudy (Clear); Bacteria,Urine Moderate /hpf; Bilirubin,Urine 2+ (Negative); Blood,Urine Trace (Negative); Budding Yeast,Urine Rare /hpf; Color,Urine Brown; Glucose,Urine (UA) Negative (Negative); Hyaline Casts,Urine 4 /lpf (0-2); Ketones,Urine Negative (Negative); Leukocyte Esterase,Urine Moderate (Negative); Mucus,Urine Rare /hpf; Nitrite,Urine Negative (Negative); PH, Urine 5.5 (5.0-8.0); Protein,Urine Trace (Negative); RBC,Urine 2 /hpf (0-5); Specific Gravity,Urine 1.017 (1.001-1.035); Squamous Epithelial Cell,Urine <1 /hpf (0-4); Urobilinogen,Urine >12.0 mg/dL (<2.0); WBC,Urine 17 /hpf (0-5)
[2023-01-26] MEDS: SODIUM CHLORIDE 0.9% 1,000 ML IV SCH ×2 (02:00→09:00)
[2023-01-26] MEDS ORDERED: NOREPINEPHRINE 4 MG in SODIUM CHLORIDE 0.9% 250 ML IV SCH (02:15)
[2023-01-26] MEDS: metroNIDAZOLE-NS PMX 500 MG in SALINE 1 100ML.BAG IVPB SCH ×3 (02:54→18:37)
[2023-01-26 03:11] LABS: INR 1.3 (<1.2); Partial Thromboplastin Time 22.8 sec (22.0-30.0)
--- NOTE | 2023-01-26 05:48 | P.CNPUL ---
History of Present Illness Consult date: 01/26/23 Requesting physician: Jorge Etienne Reason for consult: other (ICU management) Chief complaint: Abdominal pain, nausea, vomiting History of present illness: I'm seeing this patient in new consultation today 01/26/2023 in the emergency room for ICU management. This is a pleasant 72-year-old white male with past medical history of of a suspicious liver mass, previous right nephrectomy related to renal cell carcinoma, COPD, hypertension, cholecystectomy, appendectomy, previous skin cancer, ex-smoker. A CT of the chest, abdomen and pelvis with contrast on 12/29/2022 showed a large heterogenous mass involving the posterior aspect of the right lobe of the liver that measures at least 9.2 x 8.1 cm in diameter. 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 Patient recently had a CT-guided biopsy of the liver on 01/20/2023, and pathology results are pending. Patient has also had diagnostic paracentesis. A bone scan showed no evidence of osseous metastasis. Patient presented to the ER yesterday afternoon with chief complaint of nonlocalized abdominal pain, nausea, vomiting, and. Patient presented with a friend who states that he seems more confused than normal. Patient is currently sitting up in bed, on room air, in no acute distress. Chest x-ray showed no acute cardiopulmonary process. Abdomen is soft but painful to palpation.. Patient denies any matting hematemesis or bloody bowel movements. Patient does appear slightly jaundiced. Urine is orange. An abdominal CT without contrast on admission showed an interval development of suspected intrahepatic abscess. Findings which likely represent necrosis of prior mass with superimposed infecti on. The remainder of the mass was suboptimally evaluated given lack of IV contrast. There was also a redemonstration of the pneumobilia initially seen on previous exam, trace ascites and splenomegaly. Patient is hypotensive after a total of 2 L normal saline fluid resuscitation. For this reason, patient will be transferred to the intensive care unit for vasopressor support. Patient also has a suspicious urinalysis with leukocyte esterase and moderate bacteria. Patient's lactic acid level was originally 6.3 and is down to 4.2 after fluid resuscitation. Patient is empirically covered on Unasyn. CBC on arrival shows leukocytosis with a WBC count of 19.2, hemoglobin 10.1, hematocrit 31.8, platelets 318,000. PT/INR was 12 and 1.2. BMP shows a sodium 138, potassium 5.3, chloride 104, serum CO2 16, BUN 46, creatinine 2.02, glucose 137. Normal saline is infusing at 130 mL per hour. LFTs are elevated and his AST is 397, a 92, alkaline phosphatase 624. Ammonia 55. Patient's condition is critical, and he will be transferred to the intensive care unit. Review of Systems REVIEW OF SYSTEMS: CONSTITUTIONAL: Denies any recent significant weight loss or weight gain. EYES: Denies change in vision. EARS, NOSE, MOUTH, THROAT: Denies headaches, denies sore throat. CARDIOVASCULAR: Denies chest pain, palpitations or syncopal episodes. RESPIRATORY: Denies shortness of breath, cough, congestion or hemoptysis. GASTROINTESTINAL: See HPI GENITOURINARY: Denies hematuria, urgency, frequency, dysuria MUSKULOSKELETAL: Denies pain, denies swelling. INTEGUMENTARY: Denies rash, denies eczema. NEUROLOGICAL: Denies recent memory loss, no recent seizure activity. PSYCHIATRIC: Denies anxiety, denies depression. HEMATOLOGIC/LYMPHATIC: Denies anemia, denies enlarged lymph node Past Medical History Past Medical History: Cancer, COPD, Hypertension, Osteoarthritis (OA) Additional Past Medical History / Comment(s): hx. of kidney & skin cancer, vertigo, liver mass History of Any Multi-Drug Resistant Organisms: None Reported Past Surgical History: Appendectomy, Cholecystectomy Additional Past Surgical History / Comment(s): RIGHT NEPHRECTOMY, "bile duct cut in 2" with gallbladder surgery Past Anesthesia/Blood Transfusion Reactions: No Reported Reaction Past Psychological History: No Psychological Hx Reported Smoking Status: Former smoker Past Alcohol Use History: None Reported Additional Past Alcohol Use History / Comment(s): 1ppd for 50 yrs but stopped in 2021 Past Drug Use History: None Reported - Past Family History Sister(s) Family Medical History: Deep Vein Thrombosis (DVT) Additional Family Medical History / Comment(s): BLOOD CLOTS Medications and Allergies Home Medications Medication Instructions Recorded Confirmed Type No Known Home Medications 01/25/23 01/25/23 History Allergies Allergy/AdvReac Type Severity Reaction Status Date / Time No Known Allergies Allergy Verified 01/25/23 16:25 Physical Exam Vitals: Vital Signs Temp Pulse Resp BP Pulse Ox 04/05/23 03:11 18 95/62 01/26/23 03:00 92 20 89/58 95 01/26/23 02:50 94 30 H 84/60 93 L 01/26/23 02:40 93 26 H 92 L 01/26/23 02:30 93 29 H 86/57 93 L 01/26/23 02:20 94 29 H 94 L 01/26/23 02:10 93 21 85/55 93 L 01/26/23 02:00 96 28 H 75/48 95 01/26/23 01:50 90 22 75/48 93 L 01/26/23 01:40 90 23 75/48 93 L 01/26/23 01:30 96 35 H 95 01/26/23 01:20 92 27 H 84/48 95 01/26/23 01:10 95 18 75/46 01/26/23 00:52 98 18 82/50 94 L 01/25/23 23:49 99.0 F 102 H 18 88/50 96 01/25/23 23:30 84/50 01/25/23 23:00 95 87/48 01/25/23 21:13 100.4 F H 01/25/23 20:35 97 18 88/52 96 01/25/23 20:01 99.0 F 98 18 92/49 95 01/25/23 18:27 99 17 94/50 96 01/25/23 13:06 99.8 F H 117 H 22 93/54 97 Intake and Output 01/25/23 01/25/23 01/26/23 14:59 22:59 06:59 Intake Total 360 Output Total 500 Balance -140 Intake: IV 360 Sodium Chloride 0.9% 1, 260 000 ml @ 130 mls/hr IV . [id number] ROBERTA Rx#:[id number] metroNIDAZOLE-NS PMX 500 100 mg In Saline 1 100ml.bag @ 100 mls/hr IVPB Q8H ROBERTA Rx#:[id number] Output: Urine 500 Other: Weight 47.174 kg 79.4 kg GENERAL EXAM: Alert, jaundiced 72-year-old male, comfortable in no apparent distress. HEAD: Normocephalic and atraumatic EYES: Normal reaction of pupils, equal size. Icteric sclera NOSE: Clear with pink turbinates. THROAT: No erythema or exudates. NECK: No masses, no JVD. CHEST: No chest wall deformity. LUNGS: Equal air entry with no crackles, wheeze, rhonchi or dullness. On room air. No conversational dyspnea or accessory muscle use.. CVS: S1 and S2 normal with no audible murmur, regular rhythm. No extra heart sounds ABDOMEN: Abdomen is soft with hepatosplenomegaly. There are active bowel sounds. Guarding with palpation of the right upper quadrant SPINE: No scoliosis or deformity SKIN: No rashes. There is a healed surgical scar over the right abdomen. Patient is jaundiced. CENTRAL NERVOUS SYSTEM: No focal deficits, tone is normal in all 4 extremities. EXTREMITIES: There is no peripheral edema, clubbing, or cyanosis. Peripheral pulses are intact. Results - Laboratory Findings CBC and BMP: 01/26/23 05:31 01/26/23 05:31 PT/INR, D-dimer PT 13.0 sec (9.0-12.0) H 01/26/23 02:40 INR 1.3 (<1.2) H 01/26/23 02:40 Abnormal lab findings: Abnormal Labs 01/25/23 01/25/23 01/25/23 15:42 15:42 15:42 WBC 19.2 H RBC 3.42 L Hgb 10.1 L Hct 31.8 L RDW 15.6 H Neutrophils # 18.3 H Lymphocytes # 0.4 L PT INR 1.2 H Potassium 5.3 H Carbon Dioxide 16 L BUN 46 H Creatinine 2.02 H Glucose 137 H Plasma Lactic Acid Dereck Total Bilirubin 5.8 H AST 397 H ALT 92 H Alkaline Phosphatase 624 H Ammonia Albumin 3.0 L Amylase 112 H Urine Protein Urine Blood Urine Bilirubin Ur Leukocyte Esterase Urine WBC Urine Bacteria Hyaline Casts Urine Mucus Urine Yeast (Budding) 01/25/23 01/25/23 01/25/23 16:17 20:11 23:27 WBC RBC Hgb Hct RDW Neutrophils # Lymphocytes # PT INR Potassium Carbon Dioxide BUN Creatinine Glucose Plasma Lactic Acid Dereck 6.3 H* 3.5 H* 5.3 H* Total Bilirubin AST ALT Alkaline Phosphatase Ammonia 55 H Albumin Amylase Urine Protein Urine Blood Urine Bilirubin Ur Leukocyte Esterase Urine WBC Urine Bacteria Hyaline Casts Urine Mucus Urine Yeast (Budding) 01/26/23 01/26/23 01/26/23 00:54 02:40 02:40 WBC RBC Hgb Hct RDW Neutrophils # Lymphocytes # PT 13.0 H INR 1.3 H Potassium Carbon Dioxide BUN Creatinine Glucose Plasma Lactic Acid Dereck 4.2 H* Total Bilirubin AST ALT Alkaline Phosphatase Ammonia Albumin Amylase Urine Protein Trace H Urine Blood Trace H Urine Bilirubin 2+ H Ur Leukocyte Esterase Moderate H Urine WBC 17 H Urine Bacteria Moderate H Hyaline Casts 4 H Urine Mucus Rare H Urine Yeast (Budding) Rare H - Diagnostic Findings Chest x-ray: image reviewed Assessment and Plan Assessment: Sepsis related to suspected liver abscess. Patient's CT of the abdomen pelvis on admission showed heterogenous masses within the liver, and a new complex mass with gas measuring 7.1 x 6.1 cm in the right hepatic lobe near the dome. There was also a redemonstration of the pneummobilia, trace ascites, and splenomegaly. Patient also has a possible UTI, urinalysis was positive for leukocyte esterase and bacteria. Patient has hypotension refractory to fluid resuscitation, and will require ICU admission and norepinephrine infusion. High anion gap metabolic acidosis secondary to lactic acidosis, improving. Known liver mass suspicious for metastasis. Patient had a chest, abdomen, and pelvis CT with contrast on 12/29/2022 which showed large heterogenous mass involving the posterior aspect of the right lobe of the liver that measures at least 9.2 x 8.1 cm in diameter. 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 Patient has recently had a CT- guided biopsy of the liver on 01/20/2023, and pathology results are pending. A diagnostic paracentesis was also done. A follow-up bone scan showed no evidence of osseous metastasis. Elevated LFTs and ammonia secondary to above. Acute kidney injury Background COPD which is stable at the moment, on room air History of previous right nephrectomy related to renal cell carcinoma History of cholecystectomy History of appendectomy History of previous skin cancer Ex-smoker Plan: Patient's medications, labs, chest x-ray, abdominal CT were reviewed Patient will be transferred to the intensive care unit Norepinephrine for hypotension Obtain mary cultures IV hydration with normal saline at 130 mL per hour Lactic acid trending down after fluid resuscitation Continue Unasyn and add Flagyl Surgery was consulted for possible drainage of abscess Consult infectious disease Protonix for GI prophylaxis Heparin for DVT prophylaxis Oncology was consulted Liver biopsy pending Patient's condition is critical and overall prognosis is poor After further talks with the patient and his desire for life support, he wants to be a DO NOT RESUSCITATE. We will continue to follow I have personally seen and examined the patient, performed the documentation and the assessment and plan as written. Number of minutes spent on the visit:20 Time with Patient: Greater than 30
[2023-01-26 06:04] LABS: Basophils # (A) 0.1 k/uL (0-0.2); Basophils % (A) 0 %; Eosinophils # (A) 0.1 k/uL (0-0.7); Eosinophils % (A) 1 %; HCT 26.1 % (39.0-53.0); Hypochromasia Moderate; Lymphocytes # (A) 0.3 k/uL (1.0-4.8); Lymphocytes % (A) 2 %; MCH 29.6 pg (25.0-35.0); MCHC 31.6 g/dL (31.0-37.0); MCV 93.8 fL (80.0-100.0); Mean Platelet Volume 9.4; Monocytes # (A) 0.4 k/uL (0-1.0); Monocytes % (A) 3 %; Neutrophils # (A) 15.1 k/uL (1.3-7.7); Neutrophils % (A) 93 %; Platelet Count 205 k/uL (150-450); RBC 2.78 m/uL (4.30-5.90); RDW 15.8 % (11.5-15.5); WBC 16.3 k/uL (3.8-10.6)
[2023-01-26 06:19] LABS: HGB 8.3 gm/dL (13.0-17.5)
[2023-01-26 06:24] LABS: Appearance,Urine Clear (Clear); Bacteria,Urine Rare /hpf; Bilirubin,Urine 1+ (Negative); Blood,Urine Trace (Negative); Color,Urine Dark Yellow; Glucose,Urine (UA) Negative (Negative); Hyaline Casts,Urine 3 /lpf (0-2); Ketones,Urine Negative (Negative); Leukocyte Esterase,Urine Small (Negative); Mucus,Urine Rare /hpf; Nitrite,Urine Negative (Negative); PH, Urine 5.5 (5.0-8.0); Protein,Urine 1+ (Negative); RBC,Urine 1 /hpf (0-5); Squamous Epithelial Cell,Urine <1 /hpf (0-4); Urobilinogen,Urine >12.0 mg/dL (<2.0); WBC,Urine 5 /hpf (0-5)
[2023-01-26 06:36] LABS: ALT 88 U/L (4-49); AST 476 U/L (17-59); African American GFR (CKD) 41 (>60 ml/min/1.73 sqM); Albumin 2.4 g/dL (3.5-5.0); Albumin/Globulin Ratio 0.6; Alkaline Phosphatase 401 U/L (38-126); Anion Gap 11 mmol/L; Blood Urea Nitrogen 52 mg/dL (9-20); Carbon Dioxide 16 mmol/L (22-30); Chloride 112 mmol/L (98-107); Globulin 4.1 g/dL; Glucose 151 mg/dL (74-99); Non-African American GFR(CKD) 36 (>60 ml/min/1.73 sqM); Potassium 4.5 mmol/L (3.5-5.1); Sodium 139 mmol/L (137-145); Total Bilirubin 5.1 mg/dL (0.2-1.3); Total Protein 6.5 g/dL (6.3-8.2)
[2023-01-26] MEDS: NOREPINEPHRINE 4 MG in SODIUM CHLORIDE 0.9% 250 ML IV SCH (09:00)
[2023-01-26] MEDS: HEPARIN SODIUM,PORCINE/PF 5,000 UNIT/0.5 ML SYRINGE SQ SCH ×2 (09:44→20:37)
[2023-01-26] MEDS: PANTOPRAZOLE 40 MG/10 ML VIAL IV SCH (09:44)
[2023-01-26 10:34] LABS: Bilirubin, Conjugated 1.6 mg/dL (0.0-0.3); Bilirubin,Unconjugated 1.2 mg/dL (0.0-1.1); Total Bilirubin 4.8 mg/dL (0.2-1.3)
[2023-01-26] MEDS: PIPERACILLIN-TAZOBACTAM 3.375 GM in SODIUM CHLORIDE 0.9% 100 ML IVPB SCH ×2 (12:36→20:37)
--- NOTE | 2023-01-26 13:47 | P.CON ---
Consult Note - . Consult date: 01/26/23 Assessment/Plan:: films reviewed. Discussed with Dr. Pradhan and Dr. Stanford. Possible infected necrotic tumor vs liver abscess. Difficult access route. Notified IR consult is on hold. If IR consult needed please re notify.
--- NOTE | 2023-01-26 14:07 | P.GSCN ---
History of Present Illness Consult date: 01/26/23 History of present illness: CHIEF COMPLAINT: Nausea, vomiting, diarrhea and altered mental status HISTORY OF PRESENT ILLNESS: This is a 72-year-old male who is currently in the ICU. He has past medical history of a suspicious liver mass and recently had liver biopsy on 01/20/2023. Patient also has a history of kidney cancer with nephrectomy and bladder cancer status post treatment. Patient has had 2 paracentesis in the past. He presents to the hospital with altered mental status, nausea vomiting and jaundice. He currently has no abdominal pain. The vomiting has resolved. He did have some mild vomiting and diarrhea prior to admission. Patient has had low-grade fevers and had been hypotensive requiring Levophed. Levophed was discontinued this morning. Patient had become hypothermic and now has heating blanket on. He had a computed tomography scan a bdomen and pelvis completed that had shown interval development of suspected intrahepatic abscess given history of leukocytosis and fever. Findings likely result represent necrosis of prior mass with superimposed infection. Patient is on IV antibiotics. Patient seen and examined with Dr. vidal PAST MEDICAL HISTORY: See below PAST SURGICAL HISTORY: See below MEDICATIONS: See below ALLERGIES: See below SOCIAL HISTORY: No illicit drug use. REVIEW OF SYSTEMS: CONSTITUTIONAL: Denies fever or chills. HEENT: Denies blurred vision, vision changes, or eye pain. Denies hemoptysis CARDIOVASCULAR: Denies chest pain or pressure. RESPIRATORY: No shortness of breath. GASTROINTESTINAL: See HPI for pertinent findings HEMATOLOGIC: Denies bleeding disorders. GENITOURINARY: Denies any blood in urine or increased urinary frequency. SKIN: Denies pruitis. Denies rash. PHYSICAL EXAM: VITAL SIGNS: Reviewed GENERAL: Well-developed in no acute distress. ABDOMEN: Soft. Distended. Nontender. NEUROLOGIC: Awake and alert. Cranial nerves II through XII grossly intact. LABORATORY DATA: WBC 19.2 down to 16.3 Hgb 10.1 on 8.3 platelets 205 INR 1.3 Sodium is 139 potassium is 4.5 creatinine 1.84 Lactic acid 5.3 down to 3.5 Magnesium 2.4 total bilirubin 5.8 down to 4.8 AST 476 ALT 88 alk phos 401 Urinalysis trace blood and 1+ bilirubin small leukocyte esterase Ammonia level 55 IMAGING: Computed tomography scan abdomen and pelvis interval development of suspected intrahepatic abscess given history of leukocytosis and fever. Findings likely represent necrosis of prior mass with superimposed infection. The remainder of the mass is suboptimally evaluated given lack of IV contrast. Similar pneumobilia dating back to prior on 01/10/2023. Trace ascites which is similar to prior. Limited evaluation of the intrahepatic vasculature. Splenomegaly. ASSESSMENT: 1. Possible infected necrotic tumor versus abscess of the liver 2. History of liver mass with recent liver biopsy on 01/20/2023. Pathology results pending. 3. History of renal cancer status post nephrectomy 4. History of bladder cancer PLAN: -No surgical intervention planned -Consult interventional radiology for possible drainage of liver abscess -Continue IV antibiotics -Continue ICU management -Continue supportive care -Start regular diet Thank you for this consultation Physician Substation Operator Helper note has been reviewed by physician. Signing provider agrees with the documented findings, assessment, and plan of care. Past Medical History Past Medical History: Cancer, COPD, Hypertension, Osteoarthritis (OA) Additional Past Medical History / Comment(s): hx. of kidney & skin cancer, vertigo, liver mass History of Any Multi-Drug Resistant Organisms: None Reported Past Surgical History: Appendectomy, Cholecystectomy Additional Past Surgical History / Comment(s): RIGHT NEPHRECTOMY, "bile duct cut in 2" with gallbladder surgery Past Anesthesia/Blood Transfusion Reactions: No Reported Reaction Past Psychological History: No Psychological Hx Reported Smoking Status: Former smoker Past Alcohol Use History: None Reported Additional Past Alcohol Use History / Comment(s): 1ppd for 50 yrs but stopped in 2021 Past Drug Use History: None Reported - Past Family History Sister(s) Family Medical History: Deep Vein Thrombosis (DVT) Additional Family Medical History / Comment(s): BLOOD CLOTS Medications and Allergies Home Medications Medication Instructions Recorded Confirmed Type No Known Home Medications 01/25/23 01/25/23 History Allergies Allergy/AdvReac Type Severity Reaction Status Date / Time No Known Allergies Allergy Verified 01/25/23 16:25 Surgical - Exam Vital Signs Temp Pulse Resp BP Pulse Ox 99.8 F H 117 H 22 93/54 97 01/25/23 13:06 01/25/23 13:06 01/25/23 13:06 01/25/23 13:06 01/25/23 13:06 Results - Labs 01/26/23 05:31 01/26/23 05:31 Abnormal Lab Results - Last 24 Hours (Table) 01/25/23 01/25/23 01/25/23 Range/Units 15:42 15:42 15:42 WBC 19.2 H (3.8-10.6) k/uL RBC 3.42 L (4.30-5.90) m/uL Hgb 10.1 L (13.0-17.5) gm/dL Hct 31.8 L (39.0-53.0) % RDW 15.6 H (11.5-15.5) % Neutrophils # 18.3 H (1.3-7.7) k/uL Lymphocytes # 0.4 L (1.0-4.8) k/uL PT (9.0-12.0) sec INR 1.2 H (<1.2) Potassium 5.3 H (3.5-5.1) mmol/L Chloride (98-107) mmol/L Carbon Dioxide 16 L (22-30) mmol/L BUN 46 H (9-20) mg/dL Creatinine 2.02 H (0.66-1.25) mg/dL Glucose 137 H (74-99) mg/dL Plasma Lactic Acid Dereck (0.7-2.0) mmol/L Calcium (8.4-10.2) mg/dL Magnesium (1.6-2.3) mg/dL Total Bilirubin 5.8 H (0.2-1.3) mg/dL AST 397 H (17-59) U/L ALT 92 H (4-49) U/L Alkaline Phosphatase 624 H (38-126) U/L Ammonia (<30) umol/L Albumin 3.0 L (3.5-5.0) g/dL Amylase 112 H (30-110) U/L Urine Protein (Negative) Urine Blood (Negative) Urine Bilirubin (Negative) Ur Leukocyte Esterase (Negative) Urine WBC (0-5) /hpf Urine Bacteria (None) /hpf Hyaline Casts (0-2) /lpf Urine Mucus (None) /hpf Urine Yeast (Budding) (None) /hpf 01/25/23 01/25/23 01/25/23 Range/Units 16:17 20:11 23:27 WBC (3.8-10.6) k/uL RBC (4.30-5.90) m/uL Hgb (13.0-17.5) gm/dL Hct (39.0-53.0) % RDW (11.5-15.5) % Neutrophils # (1.3-7.7) k/uL Lymphocytes # (1.0-4.8) k/uL PT (9.0-12.0) sec INR (<1.2) Potassium (3.5-5.1) mmol/L Chloride (98-107) mmol/L Carbon Dioxide (22-30) mmol/L BUN (9-20) mg/dL Creatinine (0.66-1.25) mg/dL Glucose (74-99) mg/dL Plasma Lactic Acid Dereck 6.3 H* 3.5 H* 5.3 H* (0.7-2.0) mmol/L Calcium (8.4-10.2) mg/dL Magnesium (1.6-2.3) mg/dL Total Bilirubin (0.2-1.3) mg/dL AST (17-59) U/L ALT (4-49) U/L Alkaline Phosphatase (38-126) U/L Ammonia 55 H (<30) umol/L Albumin (3.5-5.0) g/dL Amylase (30-110) U/L Urine Protein (Negative) Urine Blood (Negative) Urine Bilirubin (Negative) Ur Leukocyte Esterase (Negative) Urine WBC (0-5) /hpf Urine Bacteria (None) /hpf Hyaline Casts (0-2) /lpf Urine Mucus (None) /hpf Urine Yeast (Budding) (None) /hpf 01/26/23 01/26/23 01/26/23 Range/Units 00:54 02:40 02:40 WBC (3.8-10.6) k/uL RBC (4.30-5.90) m/uL Hgb (13.0-17.5) gm/dL Hct (39.0-53.0) % RDW (11.5-15.5) % Neutrophils # (1.3-7.7) k/uL Lymphocytes # (1.0-4.8) k/uL PT 13.0 H (9.0-12.0) sec INR 1.3 H (<1.2) Potassium (3.5-5.1) mmol/L Chloride (98-107) mmol/L Carbon Dioxide (22-30) mmol/L BUN (9-20) mg/dL Creatinine (0.66-1.25) mg/dL Glucose (74-99) mg/dL Plasma Lactic Acid Dereck 4.2 H* (0.7-2.0) mmol/L Calcium (8.4-10.2) mg/dL Magnesium (1.6-2.3) mg/dL Total Bilirubin (0.2-1.3) mg/dL AST (17-59) U/L ALT (4-49) U/L Alkaline Phosphatase (38-126) U/L Ammonia (<30) umol/L Albumin (3.5-5.0) g/dL Amylase (30-110) U/L Urine Protein Trace H (Negative) Urine Blood Trace H (Negative) Urine Bilirubin 2+ H (Negative) Ur Leukocyte Esterase Moderate H (Negative) Urine WBC 17 H (0-5) /hpf Urine Bacteria Moderate H (None) /hpf Hyaline Casts 4 H (0-2) /lpf Urine Mucus Rare H (None) /hpf Urine Yeast (Budding) Rare H (None) /hpf 01/26/23 01/26/23 01/26/23 Range/Units 05:31 05:31 05:31 WBC 16.3 H (3.8-10.6) k/uL RBC 2.78 L (4.30-5.90) m/uL Hgb 8.3 L D (13.0-17.5) gm/dL Hct 26.1 L (39.0-53.0) % RDW 15.8 H (11.5-15.5) % Neutrophils # 15.1 H (1.3-7.7) k/uL Lymphocytes # 0.3 L (1.0-4.8) k/uL PT (9.0-12.0) sec INR (<1.2) Potassium (3.5-5.1) mmol/L Chloride 112 H (98-107) mmol/L Carbon Dioxide 16 L (22-30) mmol/L BUN 52 H (9-20) mg/dL Creatinine 1.84 H (0.66-1.25) mg/dL Glucose 151 H (74-99) mg/dL Plasma Lactic Acid Dereck (0.7-2.0) mmol/L Calcium 8.0 L (8.4-10.2) mg/dL Magnesium 2.4 H (1.6-2.3) mg/dL Total Bilirubin 5.1 H (0.2-1.3) mg/dL AST 476 H (17-59) U/L ALT 88 H (4-49) U/L Alkaline Phosphatase 401 H (38-126) U/L Ammonia (<30) umol/L Albumin 2.4 L (3.5-5.0) g/dL Amylase (30-110) U/L Urine Protein (Negative) Urine Blood (Negative) Urine Bilirubin (Negative) Ur Leukocyte Esterase (Negative) Urine WBC (0-5) /hpf Urine Bacteria (None) /hpf Hyaline Casts (0-2) /lpf Urine Mucus (None) /hpf Urine Yeast (Budding) (None) /hpf 01/26/23 01/26/23 01/26/23 Range/Units 05:40 05:46 09:18 WBC (3.8-10.6) k/uL RBC (4.30-5.90) m/uL Hgb (13.0-17.5) gm/dL Hct (39.0-53.0) % RDW (11.5-15.5) % Neutrophils # (1.3-7.7) k/uL Lymphocytes # (1.0-4.8) k/uL PT (9.0-12.0) sec INR (<1.2) Potassium (3.5-5.1) mmol/L Chloride (98-107) mmol/L Carbon Dioxide (22-30) mmol/L BUN (9-20) mg/dL Creatinine (0.66-1.25) mg/dL Glucose (74-99) mg/dL Plasma Lactic Acid Dereck 3.0 H* 3.5 H* (0.7-2.0) mmol/L Calcium (8.4-10.2) mg/dL Magnesium (1.6-2.3) mg/dL Total Bilirubin (0.2-1.3) mg/dL AST (17-59) U/L ALT (4-49) U/L Alkaline Phosphatase (38-126) U/L Ammonia (<30) umol/L Albumin (3.5-5.0) g/dL Amylase (30-110) U/L Urine Protein 1+ H (Negative) Urine Blood Trace H (Negative) Urine Bilirubin 1+ H (Negative) Ur Leukocyte Esterase Small H (Negative) Urine WBC (0-5) /hpf Urine Bacteria Rare H (None) /hpf Hyaline Casts 3 H (0-2) /lpf Urine Mucus Rare H (None) /hpf Urine Yeast (Budding) (None) /hpf Microbiology - Last 24 Hours (Table) 01/25/23 15:45 Blood Culture Gram Stain - Preliminary Blood 01/25/23 16:00 Blood Culture Gram Stain - Preliminary Blood 01/25/23 15:45 Blood Culture - Final Blood 01/25/23 16:00 Blood Culture - Final Blood Diabetes panel 01/25/23 01/26/23 Range/Units 15:42 05:31 Sodium 138 139 (137-145) mmol/L Potassium 5.3 H 4.5 (3.5-5.1) mmol/L Chloride 104 112 H (98-107) mmol/L Carbon Dioxide 16 L 16 L (22-30) mmol/L BUN 46 H 52 H (9-20) mg/dL Creatinine 2.02 H 1.84 H (0.66-1.25) mg/dL Glucose 137 H 151 H (74-99) mg/dL Calcium 8.7 8.0 L (8.4-10.2) mg/dL AST 397 H 476 H (17-59) U/L ALT 92 H 88 H (4-49) U/L Alkaline Phosphatase 624 H 401 H (38-126) U/L Total Protein 7.8 6.5 (6.3-8.2) g/dL Albumin 3.0 L 2.4 L (3.5-5.0) g/dL Calcium panel 01/25/23 01/26/23 Range/Units 15:42 05:31 Calcium 8.7 8.0 L (8.4-10.2) mg/dL Albumin 3.0 L 2.4 L (3.5-5.0) g/dL Pituitary panel 01/25/23 01/26/23 Range/Units 15:42 05:31 Sodium 138 139 (137-145) mmol/L Potassium 5.3 H 4.5 (3.5-5.1) mmol/L Chloride 104 112 H (98-107) mmol/L Carbon Dioxide 16 L 16 L (22-30) mmol/L BUN 46 H 52 H (9-20) mg/dL Creatinine 2.02 H 1.84 H (0.66-1.25) mg/dL Glucose 137 H 151 H (74-99) mg/dL Calcium 8.7 8.0 L (8.4-10.2) mg/dL Adrenal panel 01/25/23 01/26/23 Range/Units 15:42 05:31 Sodium 138 139 (137-145) mmol/L Potassium 5.3 H 4.5 (3.5-5.1) mmol/L Chloride 104 112 H (98-107) mmol/L Carbon Dioxide 16 L 16 L (22-30) mmol/L BUN 46 H 52 H (9-20) mg/dL Creatinine 2.02 H 1.84 H (0.66-1.25) mg/dL Glucose 137 H 151 H (74-99) mg/dL Calcium 8.7 8.0 L (8.4-10.2) mg/dL Total Bilirubin 5.8 H 5.1 H (0.2-1.3) mg/dL AST 397 H 476 H (17-59) U/L ALT 92 H 88 H (4-49) U/L Alkaline Phosphatase 624 H 401 H (38-126) U/L Total Protein 7.8 6.5 (6.3-8.2) g/dL Albumin 3.0 L 2.4 L (3.5-5.0) g/dL
--- NOTE | 2023-01-26 16:54 | P.CONS ---
History of Present Illness - Reason for Consult Consult date: 01/26/23 met bladder carcinoma Requesting physician: Ryann Blanc - Chief Complaint sepsis - History of Present Illness Mr Thompson is a pleasant white male, [address]st seen [address] Dr. Dale about 3 weeks ago. Hx of cancer of the right kidney about 5-6 years ago, treated with nephrectomy at [facility]. According to the patient the tumor was completely removed and no additional therapy was required. He was then diagnosed with bladder cancer, about a year and a half prior to his initial consultation here. According to the patient this was superficial, and treated with cystoscopy and intravesical medication (is not aware of the exact type). This was done in [place]. The patient subsequently switched to urologic follow up locally with Dr. Hernandez The patient states since about early 11/15 he developed new symptoms of ache generalized abdominal discomfort, nausea, easy satiety leading to decreased appetite and weight loss. He also noted some slow, progressive abdominal distention. Labs in 12/13/22 showed hemoglobin of 9.7, platelets 334 and I will see 10.96 with normal differential. Chem panel revealed a creatinine of 1.1, and elevation of liver enzymes with AST 108, ALT 42 and alkaline phosphatase 743. AST had been 54, ALT 16 and alk phos 307. Hemoglobin at that time had been 14.5. the patient had CT chest abdomen and pelvis with contrast, 12/29/[address] Etienne, his PCP. 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 There was intrahepatic biliary ductal dilation and neutrophilia. It appeared to be multiple subcentimeter lymph nodes in the retroperitoneum, enlarged gastrohepatic ligament and portal hepatic lymph nodes, as well as moderate amount of ascites. bone scan was negative from 12/29/22. The patient was therefore referred here for further evaluation and recommendations. Ultrasound abdomen, and CT urogram in 09/13 had shown absence of the right kidney but no other suspicious findings, including in the liver. Ultrasound KUB in 07/14 had shown trabeculated and thickened bladder wall, as well as an enlarged prostate. patient states that he has not consumed any significant amount of alcohol for many years. He did have a history of hepatitis C and states that that was treated with oral medication by GI with clearing. He cannot remember exactly as to when he finished treatment for the same. the patient is being seen because of markedly abnormal CT scan findings are highly suggestive of malignancy involving the liver, and possibly intra- abdominal lymph nodes, and the peritoneum. He has associated symptoms as described in the HPI. - Possible etiologies were discussed in detail. He was advised that the findings are highly concerning for metastatic malignancy. As his bladder cancer was superficial, this is less likely to be the pathology. Metastatic recurrence of renal cell cancer, as well as a new malignancy originating in the liver (hepatocellular carcinoma or cholangiocarcinoma) are the main differentials. oth er primaries are not ruled out CT-guided biopsy of the liver, as well as ultrasound-guided paracentesis with fluid analysis 01/20 - Check labs including AFP 60,500 - pathology from his nephrectomy will be requested from [facility] CT scan reports, bone scan reports, multiple labs, ultrasound reports reviewed and summarized above about 65 minutes spent, greater than 50% in counseling and coordination of care Review of Systems 10 point Review of systems is negative except as stated in HPI Past Medical History Past Medical History: Cancer, COPD, Hypertension, Osteoarthritis (OA) Additional Past Medical History / Comment(s): hx. of kidney, bladder & skin cancer, vertigo, liver mass History of Any Multi-Drug Resistant Organisms: None Reported Past Surgical History: Appendectomy, Cholecystectomy Additional Past Surgical History / Comment(s): RIGHT NEPHRECTOMY, "bile duct cut in 2" with gallbladder surgery Past Anesthesia/Blood Transfusion Reactions: No Reported Reaction Past Psychological History: No Psychological Hx Reported Smoking Status: Former smoker Past Alcohol Use History: None Reported Additional Past Alcohol Use History / Comment(s): 1ppd for 50 yrs but stopped in 2021 Past Drug Use History: None Reported - Past Family History Sister(s) Family Medical History: Deep Vein Thrombosis (DVT) Additional Family Medical History / Comment(s): BLOOD CLOTS Medications and Allergies Home Medications Medication Instructions Recorded Confirmed Type No Known Home Medications 01/25/23 01/25/23 History Allergies Allergy/AdvReac Type Severity Reaction Status Date / Time No Known Allergies Allergy Verified 01/25/23 16:25 Physical Exam Vitals: Vital Signs Temp Pulse Resp BP Pulse Ox 01/26/23 08:30 86 17 89/62 95 01/26/23 08:15 89 20 94/60 95 01/26/23 08:00 84 20 90/59 95 01/26/23 07:45 8 L 92/60 96 01/26/23 07:30 86 25 H 87/56 95 01/26/23 07:15 82 18 90/62 95 01/26/23 07:00 88 17 94/61 95 01/26/23 06:50 86 17 94/61 94 L 01/26/23 06:40 86 16 95/60 96 01/26/23 06:30 87 15 97/61 96 01/26/23 06:20 87 16 97/61 96 01/26/23 06:10 86 17 94/58 94 L 01/26/23 06:00 95.5 F L 87 15 94/60 94 L 01/26/23 05:50 87 14 94/60 96 01/26/23 05:40 88 15 88/59 95 01/26/23 05:30 84 16 94 L 01/26/23 05:20 86 15 95 01/26/23 05:10 87 17 97 01/26/23 05:05 94.6 F L 86 23 93/61 94 L 01/26/23 03:11 18 95/62 01/26/23 03:10 90 19 95/62 94 L 01/26/23 03:00 92 20 89/58 95 01/26/23 02:50 94 30 H 84/60 93 L 01/26/23 02:40 93 26 H 92 L 01/26/23 02:30 93 29 H 86/57 93 L 01/26/23 02:20 94 29 H 94 L 01/26/23 02:10 93 21 85/55 93 L 01/26/23 02:00 96 28 H 75/48 95 01/26/23 01:50 90 22 75/48 93 L 01/26/23 01:40 90 23 75/48 93 L 01/26/23 01:30 96 35 H 95 01/26/23 01:20 92 27 H 84/48 95 01/26/23 01:10 95 18 75/46 01/26/23 00:52 98 18 82/50 94 L 01/25/23 23:49 99.0 F 102 H 18 88/50 96 01/25/23 23:30 84/50 01/25/23 23:00 95 87/48 01/25/23 21:13 100.4 F H 01/25/23 20:35 97 18 88/52 96 01/25/23 20:01 99.0 F 98 18 92/49 95 01/25/23 18:27 99 17 94/50 96 01/25/23 13:06 99.8 F H 117 H 22 93/54 97 Intake and Output 01/25/23 01/26/23 01/26/23 22:59 06:59 14:59 Intake Total 636.626 260 Output Total 530 75 Balance 106.626 185 Intake: IV 620 260 Sodium Chloride 0.9% 1, 520 260 000 ml @ 130 mls/hr IV . Q7H42M ROBERTA Rx#:[id number] metroNIDAZOLE-NS PMX 500 100 mg In Saline 1 100ml.bag @ 100 mls/hr IVPB Q8H ROBERTA Rx#:[id number] Intake, IV Titration 16.626 Amount Norepinephrine 4 mg In 16.626 Sodium Chloride 0.9% 250 ml @ 0.03 MCG/KG/MIN 5. 392 mls/hr IV .Q24H ROBERTA Rx#:[id number] Output: Urine 530 75 Other: Voiding Method Indwelling Catheter Weight 79.4 kg - Constitutional General appearance: cooperative, no acute distress, thin - EENT Eyes: EOMI, scleral icterus ENT: hard of hearing - Neck Neck: no lymphadenopathy - Respiratory Respiratory: bilateral: CTA, diminished - Cardiovascular Rhythm: regular Heart sounds: normal: S1, S2 Abnormal Heart Sounds: no systolic murmur, no diastolic murmur, no rub, no S3 Gallop, no S4 Gallop, no click, no other - Gastrointestinal General gastrointestinal: no absent bowel sounds, decreased bowel sounds, distended, hepatomegaly, no hyperactive bowel sounds, no normal bowel sounds, no organomegaly, no rigid, no scaphoid, soft, no splenomegaly, no tenderness, no umbilical hernia, no ventral hernia - Integumentary Integumentary: jaundiced - Neurologic Neurologic: CNII-XII intact (Grossly) - Musculoskeletal Musculoskeletal: generalized weakness - Psychiatric Psychiatric: A&O x's 3, appropriate affect Results CBC & Chem 7: 01/26/23 05:31 01/26/23 05:31 Labs: Abnormal Lab Results - Last 24 Hours (Table) 01/25/23 01/25/23 01/25/23 Range/Units 15:42 15:42 15:42 WBC 19.2 H (3.8-10.6) k/uL RBC 3.42 L (4.30-5.90) m/uL Hgb 10.1 L (13.0-17.5) gm/dL Hct 31.8 L (39.0-53.0) % RDW 15.6 H (11.5-15.5) % Neutrophils # 18.3 H (1.3-7.7) k/uL Lymphocytes # 0.4 L (1.0-4.8) k/uL PT (9.0-12.0) sec INR 1.2 H (<1.2) Potassium 5.3 H (3.5-5.1) mmol/L Chloride (98-107) mmol/L Carbon Dioxide 16 L (22-30) mmol/L BUN 46 H (9-20) mg/dL Creatinine 2.02 H (0.66-1.25) mg/dL Glucose 137 H (74-99) mg/dL Plasma Lactic Acid Dereck (0.7-2.0) mmol/L Calcium (8.4-10.2) mg/dL Magnesium (1.6-2.3) mg/dL Total Bilirubin 5.8 H (0.2-1.3) mg/dL AST 397 H (17-59) U/L ALT 92 H (4-49) U/L Alkaline Phosphatase 624 H (38-126) U/L Ammonia (<30) umol/L Albumin 3.0 L (3.5-5.0) g/dL Amylase 112 H (30-110) U/L Urine Protein (Negative) Urine Blood (Negative) Urine Bilirubin (Negative) Ur Leukocyte Esterase (Negative) Urine WBC (0-5) /hpf Urine Bacteria (None) /hpf Hyaline Casts (0-2) /lpf Urine Mucus (None) /hpf Urine Yeast (Budding) (None) /hpf 01/25/23 01/25/23 01/25/23 Range/Units 16:17 20:11 23:27 WBC (3.8-10.6) k/uL RBC (4.30-5.90) m/uL Hgb (13.0-17.5) gm/dL Hct (39.0-53.0) % RDW (11.5-15.5) % Neutrophils # (1.3-7.7) k/uL Lymphocytes # (1.0-4.8) k/uL PT (9.0-12.0) sec INR (<1.2) Potassium (3.5-5.1) mmol/L Chloride (98-107) mmol/L Carbon Dioxide (22-30) mmol/L BUN (9-20) mg/dL Creatinine (0.66-1.25) mg/dL Glucose (74-99) mg/dL Plasma Lactic Acid Dereck 6.3 H* 3.5 H* 5.3 H* (0.7-2.0) mmol/L Calcium (8.4-10.2) mg/dL Magnesium (1.6-2.3) mg/dL Total Bilirubin (0.2-1.3) mg/dL AST (17-59) U/L ALT (4-49) U/L Alkaline Phosphatase (38-126) U/L Ammonia 55 H (<30) umol/L Albumin (3.5-5.0) g/dL Amylase (30-110) U/L Urine Protein (Negative) Urine Blood (Negative) Urine Bilirubin (Negative) Ur Leukocyte Esterase (Negative) Urine WBC (0-5) /hpf Urine Bacteria (None) /hpf Hyaline Casts (0-2) /lpf Urine Mucus (None) /hpf Urine Yeast (Budding) (None) /hpf 01/26/23 01/26/23 01/26/23 Range/Units 00:54 02:40 02:40 WBC (3.8-10.6) k/uL RBC (4.30-5.90) m/uL Hgb (13.0-17.5) gm/dL Hct (39.0-53.0) % RDW (11.5-15.5) % Neutrophils # (1.3-7.7) k/uL Lymphocytes # (1.0-4.8) k/uL PT 13.0 H (9.0-12.0) sec INR 1.3 H (<1.2) Potassium (3.5-5.1) mmol/L Chloride (98-107) mmol/L Carbon Dioxide (22-30) mmol/L BUN (9-20) mg/dL Creatinine (0.66-1.25) mg/dL Glucose (74-99) mg/dL Plasma Lactic Acid Dereck 4.2 H* (0.7-2.0) mmol/L Calcium (8.4-10.2) mg/dL Magnesium (1.6-2.3) mg/dL Total Bilirubin (0.2-1.3) mg/dL AST (17-59) U/L ALT (4-49) U/L Alkaline Phosphatase (38-126) U/L Ammonia (<30) umol/L Albumin (3.5-5.0) g/dL Amylase (30-110) U/L Urine Protein Trace H (Negative) Urine Blood Trace H (Negative) Urine Bilirubin 2+ H (Negative) Ur Leukocyte Esterase Moderate H (Negative) Urine WBC 17 H (0-5) /hpf Urine Bacteria Moderate H (None) /hpf Hyaline Casts 4 H (0-2) /lpf Urine Mucus Rare H (None) /hpf Urine Yeast (Budding) Rare H (None) /hpf 01/26/23 01/26/23 01/26/23 Range/Units 05:31 05:31 05:31 WBC 16.3 H (3.8-10.6) k/uL RBC 2.78 L (4.30-5.90) m/uL Hgb 8.3 L D (13.0-17.5) gm/dL Hct 26.1 L (39.0-53.0) % RDW 15.8 H (11.5-15.5) % Neutrophils # 15.1 H (1.3-7.7) k/uL Lymphocytes # 0.3 L (1.0-4.8) k/uL PT (9.0-12.0) sec INR (<1.2) Potassium (3.5-5.1) mmol/L Chloride 112 H (98-107) mmol/L Carbon Dioxide 16 L (22-30) mmol/L BUN 52 H (9-20) mg/dL Creatinine 1.84 H (0.66-1.25) mg/dL Glucose 151 H (74-99) mg/dL Plasma Lactic Acid Dereck (0.7-2.0) mmol/L Calcium 8.0 L (8.4-10.2) mg/dL Magnesium 2.4 H (1.6-2.3) mg/dL Total Bilirubin 5.1 H (0.2-1.3) mg/dL AST 476 H (17-59) U/L ALT 88 H (4-49) U/L Alkaline Phosphatase 401 H (38-126) U/L Ammonia (<30) umol/L Albumin 2.4 L (3.5-5.0) g/dL Amylase (30-110) U/L Urine Protein (Negative) Urine Blood (Negative) Urine Bilirubin (Negative) Ur Leukocyte Esterase (Negative) Urine WBC (0-5) /hpf Urine Bacteria (None) /hpf Hyaline Casts (0-2) /lpf Urine Mucus (None) /hpf Urine Yeast (Budding) (None) /hpf 01/26/23 01/26/23 Range/Units 05:40 05:46 WBC (3.8-10.6) k/uL RBC (4.30-5.90) m/uL Hgb (13.0-17.5) gm/dL Hct (39.0-53.0) % RDW (11.5-15.5) % Neutrophils # (1.3-7.7) k/uL Lymphocytes # (1.0-4.8) k/uL PT (9.0-12.0) sec INR (<1.2) Potassium (3.5-5.1) mmol/L Chloride (98-107) mmol/L Carbon Dioxide (22-30) mmol/L BUN (9-20) mg/dL Creatinine (0.66-1.25) mg/dL Glucose (74-99) mg/dL Plasma Lactic Acid Dereck 3.0 H* (0.7-2.0) mmol/L Calcium (8.4-10.2) mg/dL Magnesium (1.6-2.3) mg/dL Total Bilirubin (0.2-1.3) mg/dL AST (17-59) U/L ALT (4-49) U/L Alkaline Phosphatase (38-126) U/L Ammonia (<30) umol/L Albumin (3.5-5.0) g/dL Amylase (30-110) U/L Urine Protein 1+ H (Negative) Urine Blood Trace H (Negative) Urine Bilirubin 1+ H (Negative) Ur Leukocyte Esterase Small H (Negative) Urine WBC (0-5) /hpf Urine Bacteria Rare H (None) /hpf Hyaline Casts 3 H (0-2) /lpf Urine Mucus Rare H (None) /hpf Urine Yeast (Budding) (None) /hpf Microbiology - Last 24 Hours (Table) 01/25/23 15:45 Blood Culture Gram Stain - Preliminary Blood 01/25/23 16:00 Blood Culture Gram Stain - Preliminary Blood 01/25/23 15:45 Blood Culture - Final Blood 01/25/23 16:00 Blood Culture - Final Blood CT scan - abdomen: report reviewed CT scan - pelvis: report reviewed Assessment and Plan (1) Hepatic abscess Current Visit: Yes Status: Acute Priority: High Code(s): K75.0 - ABSCESS OF LIVER SNOMED Code(s): 74700699 (2) Renal cell adenocarcinoma Current Visit: Yes Status: Acute Priority: High Code(s): C64.9 - MALIGNANT NEOPLASM OF UNSP KIDNEY, EXCEPT RENAL PELVIS SNOMED Code(s): 920371637 Plan: Hepatic abscess -Status post recent liver biopsy, likely source based on imaging -Meets sepsis criteria, in ICU. Supportive care and antibiotics. Surgery and ID on consult. -Defer to Critical Care, Surgery and ID for patient's acute situation. Renal cell carcinoma -Patient is status post liver biopsy. Results showing renal cell carcinoma. Results were given to the patient at his request, while he was by himself. -Called patient daughter later in day and discussed results -Both discussions consisted of diagnosis, prognosis with and without cancer treatment. Systemic treatment would be the mainstay of care, no surgery or radiation. Patient unfortunately has stage IV disease, treatment intent is palliative, to prolong life and palliate cancer symptoms. Patient's daughter let me know that the patient is not understanding everything, he is confused to time and forgetful. We discussed patient's change in cognition/forgetfulness is likely related to hepatic encephalopathy as well a being hard of hearing. -All questions were answered to the best of my ability and to the patient and his daughter's satisfaction. Sepsis is the patient's most acute situation. This is being addressed. Plan is to follow up with Dr. Dale for specific systemic treatment options.
[2023-01-26 16:59] LABS: Hepatitis A Antibody IgM Nonreactive (Nonreactive); Hepatitis B Core IgM Nonreactive (Nonreactive); Hepatitis B Surface Antigen Nonreactive (Nonreactive); Hepatitis C IgG Antibody Reactive (Nonreactive)
--- NOTE | 2023-01-26 17:46 | P.HPIM ---
History of Present Illness H&P Date: 01/26/23 Chief Complaint: Abdominal pain, nausea vomiting This is a pleasant 72-year-old gentleman with past medical history of right renal cancer status post nephrectomy, bladder cancer, COPD, hypertension, osteoarthritis, former nicotine dependence and multiple other medical issues presented to the ER with nausea, vomiting, diarrhea ,abdominal pain, abdominal distention, jaundiced and confusion. 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 Reports on 3: he had a paracentesis with liver biopsy, pathology pending in addition to diagnostic paracentesis. He reports also that he developed a cough, increased jaundice and dark and urine, postprocedure. In October patient developed new symptoms of generalized abdominal discomfort, early satiety,decreased appetite and subsequent weight loss. States unintentional weight loss of 40 pounds in 4 months. Low grade fever on admission with mild tachycardia. Hypotensive requiring pressor support, currently on Levophed. Hypothermic requiring bear hugger. Chest x-ray reporting no acute cardiopulmonary disease/process. CT of abdomen and pelvis reported interval development of suspected intrahepatic abscess given history of leukocytosis and fever.Findings likely result represent necrosis of prior mass with superimposed infection. On admission, Lactic acid initially 6.3, currently at 3. afebrile, (T-max 100.4), WBC 19.2, hemoglobin 10.1, hematocrit 31.8, platelets 318. INR 1.2. Sodium 138, potassium 5.3, chloride 104, Bicarb 16, BUN 46, creatinine 2.02, glucose 137. LFTs are elevated and his AST is 397, a 92, alkaline phosphatase 624. Ammonia 55. UA negative. Hepatitis serology pending. Maintained on Flagyl and Zosyn. Continues on IV fluid resuscitation as per se psis protocol. Review of Systems ROS Statement: Those systems with pertinent positive or pertinent negative responses have been documented in the HPI. ROS Other: All systems not noted in ROS Statement are negative. Past Medical History Past Medical History: Cancer, COPD, Hypertension, Osteoarthritis (OA) Additional Past Medical History / Comment(s): hx. of kidney & skin cancer, vertigo, liver mass History of Any Multi-Drug Resistant Organisms: None Reported Past Surgical History: Appendectomy, Cholecystectomy Additional Past Surgical History / Comment(s): RIGHT NEPHRECTOMY, "bile duct cut in 2" with gallbladder surgery Past Anesthesia/Blood Transfusion Reactions: No Reported Reaction Past Psychological History: No Psychological Hx Reported Smoking Status: Former smoker Past Alcohol Use History: None Reported Additional Past Alcohol Use History / Comment(s): 1ppd for 50 yrs but stopped in 2021 Past Drug Use History: None Reported - Past Family History Sister(s) Family Medical History: Deep Vein Thrombosis (DVT) Additional Family Medical History / Comment(s): BLOOD CLOTS Medications and Allergies Home Medications Medication Instructions Recorded Confirmed Type No Known Home Medications 01/25/23 01/25/23 History Allergies Allergy/AdvReac Type Severity Reaction Status Date / Time No Known Allergies Allergy Verified 01/25/23 16:25 Physical Exam Vitals: Vital Signs Temp Pulse Resp BP Pulse Ox 01/26/23 14:00 101 H 23 108/58 96 01/26/23 13:00 84 18 104/62 96 01/26/23 12:00 97.4 F L 80 26 H 95/60 95 01/26/23 11:00 97.4 F L 79 22 90/49 95 01/26/23 10:45 80 17 86/51 95 01/26/23 10:30 80 18 92/56 95 01/26/23 10:15 80 16 91/59 95 01/26/23 10:00 82 21 85/70 95 01/26/23 09:45 84 18 97/61 96 01/26/23 09:30 84 27 H 97/63 94 L 01/26/23 09:15 88 28 H 124/104 01/26/23 09:00 92 29 H 101/65 95 01/26/23 08:45 85 26 H 92/62 96 01/26/23 08:30 86 17 89/62 95 01/26/23 08:15 89 20 94/60 95 01/26/23 08:00 84 20 90/59 95 01/26/23 07:45 8 L 92/60 96 01/26/23 07:30 86 25 H 87/56 95 01/26/23 07:15 82 18 90/62 95 01/26/23 07:00 88 17 94/61 95 01/26/23 06:50 86 17 94/61 94 L 01/26/23 06:40 86 16 95/60 96 01/26/23 06:30 87 15 97/61 96 01/26/23 06:20 87 16 97/61 96 01/26/23 06:10 86 17 94/58 94 L 01/26/23 06:00 95.5 F L 87 15 94/60 94 L 01/26/23 05:50 87 14 94/60 96 01/26/23 05:40 88 15 88/59 95 01/26/23 05:30 84 16 94 L 01/26/23 05:20 86 15 95 01/26/23 05:10 87 17 97 01/26/23 05:05 94.6 F L 86 23 93/61 94 L 01/26/23 03:11 18 95/62 01/26/23 03:10 90 19 95/62 94 L 01/26/23 03:00 92 20 89/58 95 01/26/23 02:50 94 30 H 84/60 93 L 01/26/23 02:40 93 26 H 92 L 01/26/23 02:30 93 29 H 86/57 93 L 01/26/23 02:20 94 29 H 94 L 01/26/23 02:10 93 21 85/55 93 L 01/26/23 02:00 96 28 H 75/48 95 01/26/23 01:50 90 22 75/48 93 L 01/26/23 01:40 90 23 75/48 93 L 01/26/23 01:30 96 35 H 95 01/26/23 01:20 92 27 H 84/48 95 01/26/23 01:10 95 18 75/46 01/26/23 00:52 98 18 82/50 94 L 01/25/23 23:49 99.0 F 102 H 18 88/50 96 01/25/23 23:30 84/50 01/25/23 23:00 95 87/48 01/25/23 21:13 100.4 F H 01/25/23 20:35 97 18 88/52 96 01/25/23 20:01 99.0 F 98 18 92/49 95 01/25/23 18:27 99 17 94/50 96 Intake and Output 01/26/23 01/26/23 01/26/23 06:59 14:59 22:59 Intake Total 277.569 5743.154 Output Total 530 240 Balance 106.626 766.154 Intake: IV 620 990 Sodium Chloride 0.9% 1, 520 890 000 ml @ 100 mls/hr IV . Q10H ROBERTA Rx#:[id number] metroNIDAZOLE-NS PMX 500 100 100 mg In Saline 1 100ml.bag @ 100 mls/hr IVPB Q8H ROBERTA Rx#:[id number] Intake, IV Titration 16.626 16.154 Amount Norepinephrine 4 mg In 16.626 Sodium Chloride 0.9% 250 ml @ 0.03 MCG/KG/MIN 5. 392 mls/hr IV .Q24H ROBERTA Rx#:[id number] Norepinephrine 4 mg In 16.154 Sodium Chloride 0.9% 250 ml @ 0.03 MCG/KG/MIN 9.03 mls/hr IV .Q24H ROBERTA Rx#: [id number] Output: Urine 530 240 Other: Voiding Method Indwelling Catheter Indwelling Catheter # Bowel Movements 1 Weight 79.4 kg PHYSICAL EXAM: VITAL SIGNS: [As above] GENERAL: Sitting up in bed, no acute distress, jaundiced. HEENT: Atraumatic, normocephalic, sclera icterus NECK: Supple, No JVD. No thyroid enlargement. No LNs CARDIOVASCULAR: S1, S2 regular. No murmur RESPIRATION: Breath sounds diminished in the bases. No rhonchi or crackles. No bronchial breathing. ABDOMEN: Soft, distended, nontender, ascites . No guarding.Positive hepatosplenomegaly.hypoactive Bowel sounds. LEGS: Pedal edema. PSYCHIATRY: Alert and oriented X3, mood and affect normal. NERVOUS SYSTEM: Cranial N 2-12 grossly normal. No focal deficits. Strength and sensation grossly intact. Skin: Warm and dry ,no rash Results CBC & Chem 7: 01/26/23 05:31 01/26/23 05:31 Labs: Abnormal Lab Results - Last 24 Hours (Table) 01/25/23 01/25/23 01/25/23 Range/Units 15:42 16:17 20:11 WBC (3.8-10.6) k/uL RBC (4.30-5.90) m/uL Hgb (13.0-17.5) gm/dL Hct (39.0-53.0) % RDW (11.5-15.5) % Neutrophils # (1.3-7.7) k/uL Lymphocytes # (1.0-4.8) k/uL PT (9.0-12.0) sec INR (<1.2) Potassium 5.3 H (3.5-5.1) mmol/L Chloride (98-107) mmol/L Carbon Dioxide 16 L (22-30) mmol/L BUN 46 H (9-20) mg/dL Creatinine 2.02 H (0.66-1.25) mg/dL Glucose 137 H (74-99) mg/dL Plasma Lactic Acid Dereck 6.3 H* 3.5 H* (0.7-2.0) mmol/L Calcium (8.4-10.2) mg/dL Magnesium (1.6-2.3) mg/dL Total Bilirubin 5.8 H (0.2-1.3) mg/dL Conjugated Bilirubin (0.0-0.3) mg/dL Unconjugated Bilirubin (0.0-1.1) mg/dL Delta Bilirubin (0.0-0.2) mg/dL AST 397 H (17-59) U/L ALT 92 H (4-49) U/L Alkaline Phosphatase 624 H (38-126) U/L Ammonia 55 H (<30) umol/L Albumin 3.0 L (3.5-5.0) g/dL Amylase 112 H (30-110) U/L Urine Protein (Negative) Urine Blood (Negative) Urine Bilirubin (Negative) Ur Leukocyte Esterase (Negative) Urine WBC (0-5) /hpf Urine Bacteria (None) /hpf Hyaline Casts (0-2) /lpf Urine Mucus (None) /hpf Urine Yeast (Budding) (None) /hpf 01/25/23 01/26/23 01/26/23 Range/Units 23:27 00:54 02:40 WBC (3.8-10.6) k/uL RBC (4.30-5.90) m/uL Hgb (13.0-17.5) gm/dL Hct (39.0-53.0) % RDW (11.5-15.5) % Neutrophils # (1.3-7.7) k/uL Lymphocytes # (1.0-4.8) k/uL PT (9.0-12.0) sec INR (<1.2) Potassium (3.5-5.1) mmol/L Chloride (98-107) mmol/L Carbon Dioxide (22-30) mmol/L BUN (9-20) mg/dL Creatinine (0.66-1.25) mg/dL Glucose (74-99) mg/dL Plasma Lactic Acid Dereck 5.3 H* 4.2 H* (0.7-2.0) mmol/L Calcium (8.4-10.2) mg/dL Magnesium (1.6-2.3) mg/dL Total Bilirubin (0.2-1.3) mg/dL Conjugated Bilirubin (0.0-0.3) mg/dL Unconjugated Bilirubin (0.0-1.1) mg/dL Delta Bilirubin (0.0-0.2) mg/dL AST (17-59) U/L ALT (4-49) U/L Alkaline Phosphatase (38-126) U/L Ammonia (<30) umol/L Albumin (3.5-5.0) g/dL Amylase (30-110) U/L Urine Protein Trace H (Negative) Urine Blood Trace H (Negative) Urine Bilirubin 2+ H (Negative) Ur Leukocyte Esterase Moderate H (Negative) Urine WBC 17 H (0-5) /hpf Urine Bacteria Moderate H (None) /hpf Hyaline Casts 4 H (0-2) /lpf Urine Mucus Rare H (None) /hpf Urine Yeast (Budding) Rare H (None) /hpf 01/26/23 01/26/23 01/26/23 Range/Units 02:40 05:31 05:31 WBC 16.3 H (3.8-10.6) k/uL RBC 2.78 L (4.30-5.90) m/uL Hgb 8.3 L D (13.0-17.5) gm/dL Hct 26.1 L (39.0-53.0) % RDW 15.8 H (11.5-15.5) % Neutrophils # 15.1 H (1.3-7.7) k/uL Lymphocytes # 0.3 L (1.0-4.8) k/uL PT 13.0 H (9.0-12.0) sec INR 1.3 H (<1.2) Potassium (3.5-5.1) mmol/L Chloride 112 H (98-107) mmol/L Carbon Dioxide 16 L (22-30) mmol/L BUN 52 H (9-20) mg/dL Creatinine 1.84 H (0.66-1.25) mg/dL Glucose 151 H (74-99) mg/dL Plasma Lactic Acid Dereck (0.7-2.0) mmol/L Calcium 8.0 L (8.4-10.2) mg/dL Magnesium (1.6-2.3) mg/dL Total Bilirubin 5.1 H (0.2-1.3) mg/dL Conjugated Bilirubin (0.0-0.3) mg/dL Unconjugated Bilirubin (0.0-1.1) mg/dL Delta Bilirubin (0.0-0.2) mg/dL AST 476 H (17-59) U/L ALT 88 H (4-49) U/L Alkaline Phosphatase 401 H (38-126) U/L Ammonia (<30) umol/L Albumin 2.4 L (3.5-5.0) g/dL Amylase (30-110) U/L Urine Protein (Negative) Urine Blood (Negative) Urine Bilirubin (Negative) Ur Leukocyte Esterase (Negative) Urine WBC (0-5) /hpf Urine Bacteria (None) /hpf Hyaline Casts (0-2) /lpf Urine Mucus (None) /hpf Urine Yeast (Budding) (None) /hpf 01/26/23 01/26/23 01/26/23 Range/Units 05:31 05:40 05:46 WBC (3.8-10.6) k/uL RBC (4.30-5.90) m/uL Hgb (13.0-17.5) gm/dL Hct (39.0-53.0) % RDW (11.5-15.5) % Neutrophils # (1.3-7.7) k/uL Lymphocytes # (1.0-4.8) k/uL PT (9.0-12.0) sec INR (<1.2) Potassium (3.5-5.1) mmol/L Chloride (98-107) mmol/L Carbon Dioxide (22-30) mmol/L BUN (9-20) mg/dL Creatinine (0.66-1.25) mg/dL Glucose (74-99) mg/dL Plasma Lactic Acid Dereck 3.0 H* (0.7-2.0) mmol/L Calcium (8.4-10.2) mg/dL Magnesium 2.4 H (1.6-2.3) mg/dL Total Bilirubin (0.2-1.3) mg/dL Conjugated Bilirubin (0.0-0.3) mg/dL Unconjugated Bilirubin (0.0-1.1) mg/dL Delta Bilirubin (0.0-0.2) mg/dL AST (17-59) U/L ALT (4-49) U/L Alkaline Phosphatase (38-126) U/L Ammonia (<30) umol/L Albumin (3.5-5.0) g/dL Amylase (30-110) U/L Urine Protein 1+ H (Negative) Urine Blood Trace H (Negative) Urine Bilirubin 1+ H (Negative) Ur Leukocyte Esterase Small H (Negative) Urine WBC (0-5) /hpf Urine Bacteria Rare H (None) /hpf Hyaline Casts 3 H (0-2) /lpf Urine Mucus Rare H (None) /hpf Urine Yeast (Budding) (None) /hpf 01/26/23 01/26/23 Range/Units 09:18 09:18 WBC (3.8-10.6) k/uL RBC (4.30-5.90) m/uL Hgb (13.0-17.5) gm/dL Hct (39.0-53.0) % RDW (11.5-15.5) % Neutrophils # (1.3-7.7) k/uL Lymphocytes # (1.0-4.8) k/uL PT (9.0-12.0) sec INR (<1.2) Potassium (3.5-5.1) mmol/L Chloride (98-107) mmol/L Carbon Dioxide (22-30) mmol/L BUN (9-20) mg/dL Creatinine (0.66-1.25) mg/dL Glucose (74-99) mg/dL Plasma Lactic Acid Dereck 3.5 H* (0.7-2.0) mmol/L Calcium (8.4-10.2) mg/dL Magnesium (1.6-2.3) mg/dL Total Bilirubin 4.8 H (0.2-1.3) mg/dL Conjugated Bilirubin 1.6 H (0.0-0.3) mg/dL Unconjugated Bilirubin 1.2 H (0.0-1.1) mg/dL Delta Bilirubin 2.0 H (0.0-0.2) mg/dL AST (17-59) U/L ALT (4-49) U/L Alkaline Phosphatase (38-126) U/L Ammonia (<30) umol/L Albumin (3.5-5.0) g/dL Amylase (30-110) U/L Urine Protein (Negative) Urine Blood (Negative) Urine Bilirubin (Negative) Ur Leukocyte Esterase (Negative) Urine WBC (0-5) /hpf Urine Bacteria (None) /hpf Hyaline Casts (0-2) /lpf Urine Mucus (None) /hpf Urine Yeast (Budding) (None) /hpf Microbiology - Last 24 Hours (Table) 01/25/23 15:45 Blood Culture Gram Stain - Preliminary Blood 01/25/23 16:00 Blood Culture Gram Stain - Preliminary Blood 01/25/23 15:45 Blood Culture - Final Blood 01/25/23 16:00 Blood Culture - Final Blood Thrombosis Risk Factor Assmnt - Choose All That Apply Any of the Below Risk Factors Present?: Yes Each Factor Represents 1 point: Abnormal pulmonary function (COPD), Sepsis (< 1month) Other Risk Factors: Yes Each Risk Factor Represents 2 Points: Age 61-74 years Other congenital or acquired thrombophilia - If yes, enter type in comment: No Thrombosis Risk Factor Assessment Total Risk Factor Score: 4 Thrombosis Risk Factor Assessment Level: Moderate Risk Assessment and Plan Assessment: Sepsis with septic shock secondary to suspected liver abscess, in a patient with known liver mass suspicious for metastasis, possible infected necrotic tumor. Recent liver biopsy on 01/20/2023, pathology pending. Hypotension , pressor dependent ,secondary to the above Hypothermic, requiring bare hugger Unintentional weight loss of 40 pounds in 4 months Hyperammonia an elevated LFTs secondary to the above Lactic acidosis secondary to the above Metabolic acidosis secondary to all the above Acute renal failure COPD, stable History of renal cell carcinoma status post right nephrectomy, approximately 6 years ago History of bladder cancer, approximately 2020 Prior nicotine dependence Plan: Continue on current medication regime ,monitoring and symptomatic treatment. Hepatitis series pending. IV fluids/pressors -ICU management as per resin filterer. Maintain antibiotics. Infectious disease, Oncology and general surgery consults in place with recommendations pending. Prognosis guarded given multiple complex medical issues. The impression and plan of care has been dictated as directed. : I performed a history and examination of this patient, discussed the same with the dictator. I agree with the dictator's note ,documented as a scribe. Any additional findings or plans will be noted.
[2023-01-26] MEDS ORDERED: FUROSEMIDE 10 MG/ML 10 ML VIAL IV STA (18:27)
--- NOTE | 2023-01-26 21:01 | P.CONS ---
History of Present Illness - Reason for Consult Consult date: 01/26/23 Liver abscess, UTI sepsis Requesting physician: Wilmer Azevedo - History of Present Illness Patient is a 72 year old male with a past medical history significant for right nephrectomy secondary to renal cell carcinoma COPD previous lung cancer ex-smoker with recent diagnosis of liver mass that has been biopsied on 01/20/2023 with results currently pending patient did have a bone scan that was negative for any bony metastasis patient presenting to the ER yesterday afternoon for evaluation of generalized not feeling well mental status changes and apparently the patient looked more jaundiced to a friend who came to visit him and subsequently brought the patient to the hospital patient had denies having any headache or URI symptoms no chest pain or shortness of breath occasional cough he did have some abdominal distention and discomfort more of a dull aching pain to the left and radiation some nausea but no vomiting and no diarrhea on presentation to the hospital patient did have low-grade fever of 99.8 subsequently spiked a fever 100.4 F patient was tachycardic tachypneic and hypotensive requiring admission to the ICU patient did have a white count of 19.2 with a left shift lactic acid was elevated BUN/creatinine elevated as well as elevated liver enzymes urine was relatively negative hepatitis C antibody was positive DNA has been negative patient did have a CT of abdominal pelvis with interval development of suspected intrahepatic abscess given history of leukocytosis and fever or necrosis of prior most with superimposed infection pneumobilia similar to the previous CAT scan on 01/10/2023 patient did receive a dose of Rocephin in the ER currently on Flagyl blood cultures coming back positive with gram-negative infectious disease consulted for further management of antibiotic therapy Review of Systems Positive point has been mentioned in the HPI rest of the systems are negative Past Medical History Past Medical History: Cancer, COPD, Hypertension, Osteoarthritis (OA) Additional Past Medical History / Comment(s): hx. of kidney & skin cancer, vertigo, liver mass History of Any Multi-Drug Resistant Organisms: None Reported Past Surgical History: Appendectomy, Cholecystectomy Additional Past Surgical History / Comment(s): RIGHT NEPHRECTOMY, "bile duct cut in 2" with gallbladder surgery Past Anesthesia/Blood Transfusion Reactions: No Reported Reaction Past Psychological History: No Psychological Hx Reported Smoking Status: Former smoker Past Alcohol Use History: None Reported Additional Past Alcohol Use History / Comment(s): 1ppd for 50 yrs but stopped in 2021 Past Drug Use History: None Reported - Past Family History Sister(s) Family Medical History: Deep Vein Thrombosis (DVT) Additional Family Medical History / Comment(s): BLOOD CLOTS Medications and Allergies Home Medications Medication Instructions Recorded Confirmed Type No Known Home Medications 01/25/23 01/25/23 History Allergies Allergy/AdvReac Type Severity Reaction Status Date / Time No Known Allergies Allergy Verified 01/25/23 16:25 Physical Exam Vitals: Vital Signs Temp Pulse Resp BP Pulse Ox 01/26/23 11:00 97.4 F L 79 22 90/49 95 01/26/23 10:45 80 17 86/51 95 01/26/23 10:30 80 18 92/56 95 01/26/23 10:15 80 16 91/59 95 01/26/23 10:00 82 21 85/70 95 01/26/23 09:45 84 18 97/61 96 01/26/23 09:30 84 27 H 97/63 94 L 01/26/23 09:15 88 28 H 124/104 01/26/23 09:00 92 29 H 101/65 95 01/26/23 08:45 85 26 H 92/62 96 01/26/23 08:30 86 17 89/62 95 01/26/23 08:15 89 20 94/60 95 01/26/23 08:00 84 20 90/59 95 01/26/23 07:45 8 L 92/60 96 01/26/23 07:30 86 25 H 87/56 95 01/26/23 07:15 82 18 90/62 95 01/26/23 07:00 88 17 94/61 95 01/26/23 06:50 86 17 94/61 94 L 01/26/23 06:40 86 16 95/60 96 01/26/23 06:30 87 15 97/61 96 01/26/23 06:20 87 16 97/61 96 01/26/23 06:10 86 17 94/58 94 L 01/26/23 06:00 95.5 F L 87 15 94/60 94 L 01/26/23 05:50 87 14 94/60 96 01/26/23 05:40 88 15 88/59 95 01/26/23 05:30 84 16 94 L 01/26/23 05:20 86 15 95 01/26/23 05:10 87 17 97 01/26/23 05:05 94.6 F L 86 23 93/61 94 L 01/26/23 03:11 18 95/62 01/26/23 03:10 90 19 95/62 94 L 01/26/23 03:00 92 20 89/58 95 01/26/23 02:50 94 30 H 84/60 93 L 01/26/23 02:40 93 26 H 92 L 01/26/23 02:30 93 29 H 86/57 93 L 01/26/23 02:20 94 29 H 94 L 01/26/23 02:10 93 21 85/55 93 L 01/26/23 02:00 96 28 H 75/48 95 01/26/23 01:50 90 22 75/48 93 L 01/26/23 01:40 90 23 75/48 93 L 01/26/23 01:30 96 35 H 95 01/26/23 01:20 92 27 H 84/48 95 01/26/23 01:10 95 18 75/46 01/26/23 00:52 98 18 82/50 94 L 01/25/23 23:49 99.0 F 102 H 18 88/50 96 01/25/23 23:30 84/50 01/25/23 23:00 95 87/48 01/25/23 21:13 100.4 F H 01/25/23 20:35 97 18 88/52 96 01/25/23 20:01 99.0 F 98 18 92/49 95 01/25/23 18:27 99 17 94/50 96 01/25/23 13:06 99.8 F H 117 H 22 93/54 97 Intake and Output 01/25/23 01/26/23 01/26/23 22:59 06:59 14:59 Intake Total 636.626 690 Output Total 530 160 Balance 106.626 530 Intake: IV 620 690 Sodium Chloride 0.9% 1, 520 590 000 ml @ 100 mls/hr IV . Q10H [facility] Rx#:[id number] metroNIDAZOLE-NS PMX 500 100 100 mg In Saline 1 100ml.bag @ 100 mls/hr IVPB Q8H [facility] Rx#:[id number] Intake, IV Titration 16.626 Amount Norepinephrine 4 mg In 16.626 Sodium Chloride 0.9% 250 ml @ 0.03 MCG/KG/MIN 5. 392 mls/hr IV .Q24H [facility] Rx#:[id number] Output: Urine 530 160 Other: Voiding Method Indwelling Catheter Indwelling Catheter # Bowel Movements 1 Weight 79.4 kg GENERAL DESCRIPTION: Elderly male lying in bed, no distress. No tachypnea or accessory muscle of respiration use. HEENT: Shows Pallor , no scleral icterus. Oral mucous membrane is dry. NECK: Trachea central, no thyromegaly. LUNGS: Unlabored breathing. Clear to auscultation anteriorly. No wheeze or crackle. HEART: S1, S2, regular rate and rhythm. No loud murmur ABDOMEN: Soft, mild tenderness EXTREMITIES: No edema of feet. SKIN: No rash, no masses palpable. NEUROLOGICAL: The patient is awake, alert, oriented x3, mood and affect normal. Results CBC & Chem 7: 01/26/23 05:31 01/26/23 05:31 Labs: Abnormal Lab Results - Last 24 Hours (Table) 01/25/23 01/25/23 01/25/23 Range/Units 15:42 15:42 15:42 WBC 19.2 H (3.8-10.6) k/uL RBC 3.42 L (4.30-5.90) m/uL Hgb 10.1 L (13.0-17.5) gm/dL Hct 31.8 L (39.0-53.0) % RDW 15.6 H (11.5-15.5) % Neutrophils # 18.3 H (1.3-7.7) k/uL Lymphocytes # 0.4 L (1.0-4.8) k/uL PT (9.0-12.0) sec INR 1.2 H (<1.2) Potassium 5.3 H (3.5-5.1) mmol/L Chloride (98-107) mmol/L Carbon Dioxide 16 L (22-30) mmol/L BUN 46 H (9-20) mg/dL Creatinine 2.02 H (0.66-1.25) mg/dL Glucose 137 H (74-99) mg/dL Plasma Lactic Acid Dereck (0.7-2.0) mmol/L Calcium (8.4-10.2) mg/dL Magnesium (1.6-2.3) mg/dL Total Bilirubin 5.8 H (0.2-1.3) mg/dL Conjugated Bilirubin (0.0-0.3) mg/dL Unconjugated Bilirubin (0.0-1.1) mg/dL Delta Bilirubin (0.0-0.2) mg/dL AST 397 H (17-59) U/L ALT 92 H (4-49) U/L Alkaline Phosphatase 624 H (38-126) U/L Ammonia (<30) umol/L Albumin 3.0 L (3.5-5.0) g/dL Amylase 112 H (30-110) U/L Urine Protein (Negative) Urine Blood (Negative) Urine Bilirubin (Negative) Ur Leukocyte Esterase (Negative) Urine WBC (0-5) /hpf Urine Bacteria (None) /hpf Hyaline Casts (0-2) /lpf Urine Mucus (None) /hpf Urine Yeast (Budding) (None) /hpf 01/25/23 01/25/23 01/25/23 Range/Units 16:17 20:11 23:27 WBC (3.8-10.6) k/uL RBC (4.30-5.90) m/uL Hgb (13.0-17.5) gm/dL Hct (39.0-53.0) % RDW (11.5-15.5) % Neutrophils # (1.3-7.7) k/uL Lymphocytes # (1.0-4.8) k/uL PT (9.0-12.0) sec INR (<1.2) Potassium (3.5-5.1) mmol/L Chloride (98-107) mmol/L Carbon Dioxide (22-30) mmol/L BUN (9-20) mg/dL Creatinine (0.66-1.25) mg/dL Glucose (74-99) mg/dL Plasma Lactic Acid Dereck 6.3 H* 3.5 H* 5.3 H* (0.7-2.0) mmol/L Calcium (8.4-10.2) mg/dL Magnesium (1.6-2.3) mg/dL Total Bilirubin (0.2-1.3) mg/dL Conjugated Bilirubin (0.0-0.3) mg/dL Unconjugated Bilirubin (0.0-1.1) mg/dL Delta Bilirubin (0.0-0.2) mg/dL AST (17-59) U/L ALT (4-49) U/L Alkaline Phosphatase (38-126) U/L Ammonia 55 H (<30) umol/L Albumin (3.5-5.0) g/dL Amylase (30-110) U/L Urine Protein (Negative) Urine Blood (Negative) Urine Bilirubin (Negative) Ur Leukocyte Esterase (Negative) Urine WBC (0-5) /hpf Urine Bacteria (None) /hpf Hyaline Casts (0-2) /lpf Urine Mucus (None) /hpf Urine Yeast (Budding) (None) /hpf 01/26/23 01/26/23 01/26/23 Range/Units 00:54 02:40 02:40 WBC (3.8-10.6) k/uL RBC (4.30-5.90) m/uL Hgb (13.0-17.5) gm/dL Hct (39.0-53.0) % RDW (11.5-15.5) % Neutrophils # (1.3-7.7) k/uL Lymphocytes # (1.0-4.8) k/uL PT 13.0 H (9.0-12.0) sec INR 1.3 H (<1.2) Potassium (3.5-5.1) mmol/L Chloride (98-107) mmol/L Carbon Dioxide (22-30) mmol/L BUN (9-20) mg/dL Creatinine (0.66-1.25) mg/dL Glucose (74-99) mg/dL Plasma Lactic Acid Dereck 4.2 H* (0.7-2.0) mmol/L Calcium (8.4-10.2) mg/dL Magnesium (1.6-2.3) mg/dL Total Bilirubin (0.2-1.3) mg/dL Conjugated Bilirubin (0.0-0.3) mg/dL Unconjugated Bilirubin (0.0-1.1) mg/dL Delta Bilirubin (0.0-0.2) mg/dL AST (17-59) U/L ALT (4-49) U/L Alkaline Phosphatase (38-126) U/L Ammonia (<30) umol/L Albumin (3.5-5.0) g/dL Amylase (30-110) U/L Urine Protein Trace H (Negative) Urine Blood Trace H (Negative) Urine Bilirubin 2+ H (Negative) Ur Leukocyte Esterase Moderate H (Negative) Urine WBC 17 H (0-5) /hpf Urine Bacteria Moderate H (None) /hpf Hyaline Casts 4 H (0-2) /lpf Urine Mucus Rare H (None) /hpf Urine Yeast (Budding) Rare H (None) /hpf 01/26/23 01/26/23 01/26/23 Range/Units 05:31 05:31 05:31 WBC 16.3 H (3.8-10.6) k/uL RBC 2.78 L (4.30-5.90) m/uL Hgb 8.3 L D (13.0-17.5) gm/dL Hct 26.1 L (39.0-53.0) % RDW 15.8 H (11.5-15.5) % Neutrophils # 15.1 H (1.3-7.7) k/uL Lymphocytes # 0.3 L (1.0-4.8) k/uL PT (9.0-12.0) sec INR (<1.2) Potassium (3.5-5.1) mmol/L Chloride 112 H (98-107) mmol/L Carbon Dioxide 16 L (22-30) mmol/L BUN 52 H (9-20) mg/dL Creatinine 1.84 H (0.66-1.25) mg/dL Glucose 151 H (74-99) mg/dL Plasma Lactic Acid Dereck (0.7-2.0) mmol/L Calcium 8.0 L (8.4-10.2) mg/dL Magnesium 2.4 H (1.6-2.3) mg/dL Total Bilirubin 5.1 H (0.2-1.3) mg/dL Conjugated Bilirubin (0.0-0.3) mg/dL Unconjugated Bilirubin (0.0-1.1) mg/dL Delta Bilirubin (0.0-0.2) mg/dL AST 476 H (17-59) U/L ALT 88 H (4-49) U/L Alkaline Phosphatase 401 H (38-126) U/L Ammonia (<30) umol/L Albumin 2.4 L (3.5-5.0) g/dL Amylase (30-110) U/L Urine Protein (Negative) Urine Blood (Negative) Urine Bilirubin (Negative) Ur Leukocyte Esterase (Negative) Urine WBC (0-5) /hpf Urine Bacteria (None) /hpf Hyaline Casts (0-2) /lpf Urine Mucus (None) /hpf Urine Yeast (Budding) (None) /hpf 01/26/23 01/26/23 01/26/23 Range/Units 05:40 05:46 09:18 WBC (3.8-10.6) k/uL RBC (4.30-5.90) m/uL Hgb (13.0-17.5) gm/dL Hct (39.0-53.0) % RDW (11.5-15.5) % Neutrophils # (1.3-7.7) k/uL Lymphocytes # (1.0-4.8) k/uL PT (9.0-12.0) sec INR (<1.2) Potassium (3.5-5.1) mmol/L Chloride (98-107) mmol/L Carbon Dioxide (22-30) mmol/L BUN (9-20) mg/dL Creatinine (0.66-1.25) mg/dL Glucose (74-99) mg/dL Plasma Lactic Acid Dereck 3.0 H* (0.7-2.0) mmol/L Calcium (8.4-10.2) mg/dL Magnesium (1.6-2.3) mg/dL Total Bilirubin 4.8 H (0.2-1.3) mg/dL Conjugated Bilirubin 1.6 H (0.0-0.3) mg/dL Unconjugated Bilirubin 1.2 H (0.0-1.1) mg/dL Delta Bilirubin 2.0 H (0.0-0.2) mg/dL AST (17-59) U/L ALT (4-49) U/L Alkaline Phosphatase (38-126) U/L Ammonia (<30) umol/L Albumin (3.5-5.0) g/dL Amylase (30-110) U/L Urine Protein 1+ H (Negative) Urine Blood Trace H (Negative) Urine Bilirubin 1+ H (Negative) Ur Leukocyte Esterase Small H (Negative) Urine WBC (0-5) /hpf Urine Bacteria Rare H (None) /hpf Hyaline Casts 3 H (0-2) /lpf Urine Mucus Rare H (None) /hpf Urine Yeast (Budding) (None) /hpf 01/26/23 Range/Units 09:18 WBC (3.8-10.6) k/uL RBC (4.30-5.90) m/uL Hgb (13.0-17.5) gm/dL Hct (39.0-53.0) % RDW (11.5-15.5) % Neutrophils # (1.3-7.7) k/uL Lymphocytes # (1.0-4.8) k/uL PT (9.0-12.0) sec INR (<1.2) Potassium (3.5-5.1) mmol/L Chloride (98-107) mmol/L Carbon Dioxide (22-30) mmol/L BUN (9-20) mg/dL Creatinine (0.66-1.25) mg/dL Glucose (74-99) mg/dL Plasma Lactic Acid Dereck 3.5 H* (0.7-2.0) mmol/L Calcium (8.4-10.2) mg/dL Magnesium (1.6-2.3) mg/dL Total Bilirubin (0.2-1.3) mg/dL Conjugated Bilirubin (0.0-0.3) mg/dL Unconjugated Bilirubin (0.0-1.1) mg/dL Delta Bilirubin (0.0-0.2) mg/dL AST (17-59) U/L ALT (4-49) U/L Alkaline Phosphatase (38-126) U/L Ammonia (<30) umol/L Albumin (3.5-5.0) g/dL Amylase (30-110) U/L Urine Protein (Negative) Urine Blood (Negative) Urine Bilirubin (Negative) Ur Leukocyte Esterase (Negative) Urine WBC (0-5) /hpf Urine Bacteria (None) /hpf Hyaline Casts (0-2) /lpf Urine Mucus (None) /hpf Urine Yeast (Budding) (None) /hpf Microbiology - Last 24 Hours (Table) 01/25/23 15:45 Blood Culture Gram Stain - Preliminary Blood 01/25/23 16:00 Blood Culture Gram Stain - Preliminary Blood 01/25/23 15:45 Blood Culture - Final Blood 01/25/23 16:00 Blood Culture - Final Blood Assessment and Plan Plan: 1-Patient presented to hospital with sepsis/septic shock in this patient with fever elevated white count tachycardia elevated lactic acid hypotension requiring pressor support now with evidence of gram-negative bacteremia source is likely liver abscess or tumor necrosis in this patient who did have a recent biopsy and will need to cover for the resistant gram-negative 2-blood cultures will be repeated document clearance of bacteremia and check inflammatory markers 3-we will add Zosyn 3.375 g every 8 hours 4-await surgical versus IR drainage of this abscess and fluid should be sent for culture We will follow on clinical condition and cultures to further adjust medication if needed Thank you for this consultation we will follow the patient along with you Time with Patient: Greater than 30
[2023-01-27] MEDS: SODIUM CHLORIDE 0.9% 1,000 ML IV SCH ×3 (02:50→17:02)
[2023-01-27] MEDS: PIPERACILLIN-TAZOBACTAM 3.375 GM in SODIUM CHLORIDE 0.9% 100 ML IVPB SCH ×3 (04:41→20:45)
[2023-01-27 06:23] LABS: Basophils % (A) 0 %; Eosinophils % (A) 0 %; Hypochromasia Marked; Lymphocytes # (A) 0.5 k/uL (1.0-4.8); Lymphocytes % (A) 5 %; MCHC 29.8 g/dL (31.0-37.0); MCV 93.9 fL (80.0-100.0); Mean Platelet Volume 10.5; Monocytes # (A) 0.4 k/uL (0-1.0); Monocytes % (A) 4 %; Neutrophils # (A) 9.3 k/uL (1.3-7.7); Neutrophils % (A) 88 %; Platelet Count 212 k/uL (150-450); WBC 10.6 k/uL (3.8-10.6)
[2023-01-27 06:38] LABS: Albumin 2.4 g/dL (3.5-5.0); Calcium 7.7 mg/dL (8.4-10.2); Potassium 3.8 mmol/L (3.5-5.1); Total Bilirubin 3.1 mg/dL (0.2-1.3); Total Protein 6.6 g/dL (6.3-8.2)
[2023-01-27] MEDS ORDERED: HYDROmorphone 0.5 MG/0.5 ML SYRINGE IVP PRN (07:27)
[2023-01-27] MEDS ORDERED: POTASSIUM CHLORIDE ER 20 MEQ TAB.ER PO SCH (08:00)
[2023-01-27] MEDS: PANTOPRAZOLE 40 MG/10 ML VIAL IV SCH (08:02)
[2023-01-27] MEDS: HEPARIN SODIUM,PORCINE/PF 5,000 UNIT/0.5 ML SYRINGE SQ SCH ×2 (08:02→21:45)
[2023-01-27] MEDS: HYDROmorphone 0.5 MG/0.5 ML SYRINGE IVP PRN ×2 (08:03→13:52)
[2023-01-27] MEDS: NOREPINEPHRINE 4 MG in SODIUM CHLORIDE 0.9% 250 ML IV SCH (11:14)
[2023-01-27 11:39] LABS: C Reactive Protein 24.3 mg/dL (<1.0)
--- NOTE | 2023-01-27 12:26 | P.PN ---
Progress Note - Text Progress Note Date: 01/27/23 Patient [place] stable. The computed tomography scan was reviewed Dr. Perez. The patient most likely has tumor necrosis in his liver. On exam vital signs are stable. His pulses in the 80s. His systolic blood pressures in the low 100s. Patient denies any significant abdominal pain. Abdomen is soft distended with ascites. No surgical intervention is planned. The patient will be followed. If he requires a surgical procedure. I would recommend transfer to a tertiary care center.
--- NOTE | 2023-01-27 14:33 | P.PN ---
Subjective Progress Note Date: 01/27/23 Principal diagnosis: Sepsis/septic shock, necrotic liver tumor, possible abscess. I'm seeing this patient in new consultation today 01/26/2023 in the emergency room for ICU management. This is a pleasant 72-year-old white male with past medical history of of a suspicious liver mass, previous right nephrectomy related to renal cell carcinoma, COPD, hypertension, cholecystectomy, appendectomy, previous skin cancer, ex-smoker. A CT of the chest, abdomen and pelvis with contrast on 12/29/2022 showed a large heterogenous mass involving the posterior aspect of the right lobe of the liver that measures at least 9.2 x 8.1 cm in diameter. 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 Patient recently had a CT-guided biopsy of the liver on 01/20/2023, and pathology results are pending. Patient has also had diagnostic paracentesis. A bone scan showed no evidence of osseous metastasis. Patient presented to the ER yesterday afternoon with chief complaint of nonlocalized abdominal pain, nausea, vomiting, and. Patient presented with a friend who states that he seems more confused than normal. Patient is currently sitting up in bed, on room air, in no acute distress. Chest x-ray showed no acute cardiopulmonary process. Abdomen is soft but painful to palpation.. Patient denies any matting hematemesis or bloody bowel movements. Patient does appear slightly jaundiced. Urine is orange. An abdominal CT without contrast on admission showed an interval development of suspected intrahepatic abscess. Findings which likely represent necrosis of prior mass with superimposed infection. The remainder of the mass was suboptimally evaluated given lack of IV contrast. There was also a redemonstration of the pneumobilia initially seen on previous exam, trace ascites and splenomegaly. Patient is hypotensive after a total of 2 L normal saline fluid resuscitation. For this reason, patient will be transferred to the intensive care unit for vasopressor support. Patient also has a suspicious urinalysis with leukocyte esterase and moderate bacteria. Patient's lactic acid level was originally 6.3 and is down to 4.2 after fluid resuscitation. Patient is empirically covered on Unasyn. CBC on arrival shows leukocytosis with a WBC count of 19.2, hemoglobin 10.1, hematocrit 31.8, platelets 318,000. PT/INR was 12 and 1.2. BMP shows a sodium 138, potassium 5.3, chloride 104, serum CO2 16, BUN 46, creatinine 2.02, glucose 137. Normal saline is infusing at 130 mL per hour. LFTs are elevated and his AST is 397, a 92, alkaline phosphatase 624. Ammonia 55. Patient's condition is critical, and he will be transferred to the intensive care unit. Patient was reevaluated today on 01/27/2023, remains in the ICU, patient is hemodynamically stable. Off norepinephrine, IV fluid 0.9 normal saline at 100 mL per hour. His blood cultures came back positive for E. coli and Klebsiella pneumonia as well as alphahemolytic streptococcus. Patient has been all along on antibiotics, presently on Zosyn. And that correlates with his initial presentation of possible liver abscess and sepsis/septic shock. Nonetheless the patient is looking much improved. And looks hemodynamically stable. Based on the surgical input, no need for surgery, patient is now receiving antibiotics and I would suggest that we continue medical treatment if surgery is to be considered down the line patient related to be transferred to a tertiary care center. CBC today is normal that was abnormal renal profile showed a BUN of 50 creatinine 1.66, improving to his baseline creatinine on admission of 2.0 to Objective - Vital Signs Vital signs: Vital Signs Temp 97.2 F L 01/27/23 12:00 Pulse 99 01/27/23 13:00 Resp 29 H 01/27/23 13:00 BP 100/54 01/27/23 13:00 Pulse Ox 94 L 01/27/23 13:00 FiO2 Intake & Output 01/26/23 01/27/23 01/27/23 18:59 06:59 18:59 Intake Total 6516.668 5050 1140 Output Total 360 1995 490 Balance 1146.154 -695 650 Weight 81 kg Intake: IV 1490 1300 900 Piperacillin-Tazobactam 3 200 100 .375 gm In Sodium Chloride 0.9% 100 ml @ 25 mls/hr IVPB Q8H [facility] Rx#: [id number] Sodium Chloride 0.9% 1, 1390 1100 800 000 ml @ 100 mls/hr IV . Q10H [facility] Rx#:[id number] metroNIDAZOLE-NS PMX 500 100 mg In Saline 1 100ml.bag @ 100 mls/hr IVPB Q8H [facility] Rx#:[id number] Intake, IV Titration 16.154 Amount Norepinephrine 4 mg In 16.154 Sodium Chloride 0.9% 250 ml @ 0.03 MCG/KG/MIN 9.03 mls/hr IV .Q24H [facility] Rx#: [id number] Oral 240 Output: Urine 360 1995 490 Other: Voiding Method Indwelling Catheter Indwelling Catheter Indwelling Catheter # Bowel Movements 1 - Exam Physical Exam revealed a 72-year-old white male in no distress. Patient is on room air O2 sat is 94%. Head: Atraumatic, normocephalic. HEENT:[Neck is supple.] [No neck masses.] [No thyromegaly.] [No JVD.] Chest: [Clear throughout, no crackles, no rhonchi, no wheezes.] Cardiac Exam: [Normal S1 and S2, no S3 gallop, no murmur.] Abdomen: [Soft, nontender, no megaly, no rebound, no guarding, normal bowel sounds.] Extremities: [No clubbing, no edema, no cyanosis.] Neurological Exam: [No focal neurologic deficit.] Alert and oriented 3. Psychiatric: Normal mood, affect and normal mental status examination. Skin: No rashes - Labs CBC & Chem 7: 01/27/23 05:31 01/27/23 05:31 Labs: Abnormal Lab Results - Last 24 Hours (Table) 01/26/23 01/26/23 01/26/23 Range/Units 09:18 09:18 09:18 RBC (4.30-5.90) m/uL Hgb (13.0-17.5) gm/dL Hct (39.0-53.0) % MCHC (31.0-37.0) g/dL RDW (11.5-15.5) % Neutrophils # (1.3-7.7) k/uL Lymphocytes # (1.0-4.8) k/uL Chloride (98-107) mmol/L Carbon Dioxide (22-30) mmol/L BUN (9-20) mg/dL Creatinine (0.66-1.25) mg/dL Glucose (74-99) mg/dL Calcium (8.4-10.2) mg/dL Total Bilirubin (0.2-1.3) mg/dL AST (17-59) U/L ALT (4-49) U/L Alkaline Phosphatase (38-126) U/L C-Reactive Protein (<1.0) mg/dL Albumin (3.5-5.0) g/dL Vitamin B12 2647.0 H (200.0-944.0) pg/mL Copper 1658 H (665-1480) ug/L Hep C IgG Ab Reactive A (Nonreactive) 01/27/23 01/27/23 Range/Units 05:31 05:31 RBC 3.20 L (4.30-5.90) m/uL Hgb 9.0 L (13.0-17.5) gm/dL Hct 30.0 L (39.0-53.0) % MCHC 29.8 L (31.0-37.0) g/dL RDW 16.0 H (11.5-15.5) % Neutrophils # 9.3 H (1.3-7.7) k/uL Lymphocytes # 0.5 L (1.0-4.8) k/uL Chloride 109 H (98-107) mmol/L Carbon Dioxide 17 L (22-30) mmol/L BUN 50 H (9-20) mg/dL Creatinine 1.66 H (0.66-1.25) mg/dL Glucose 110 H (74-99) mg/dL Calcium 7.7 L (8.4-10.2) mg/dL Total Bilirubin 3.1 H (0.2-1.3) mg/dL AST 262 H (17-59) U/L ALT 77 H (4-49) U/L Alkaline Phosphatase 399 H (38-126) U/L C-Reactive Protein 24.3 H (<1.0) mg/dL Albumin 2.4 L (3.5-5.0) g/dL Vitamin B12 (200.0-944.0) pg/mL Copper (665-1480) ug/L Hep C IgG Ab (Nonreactive) Microbiology - Last 24 Hours (Table) 01/25/23 15:45 Blood Culture Gram Stain - Preliminary Blood Blood Culture - Preliminary Escherichia coli Klebsiella pneumoniae Alpha Hemolytic Streptococcus 01/25/23 16:00 Blood Culture Gram Stain - Preliminary Blood Assessment and Plan Assessment: Sepsis related to suspected liver abscess. Or most likely the patient has a necrotic tumor involving the liver. Bacteremia secondary to E. coli, Klebsiella pneumonia, and alpha hemolytic strep, most likely source is his liver abscess. High anion gap metabolic acidosis secondary to lactic acidosis, improving. Known liver mass suspicious for metastasis. Elevated LFTs and ammonia secondary to above. Acute kidney injury, improving. Background COPD which is stable at the moment, on room air History of previous right nephrectomy related to renal cell carcinoma History of cholecystectomy History of appendectomy History of previous skin cancer Ex-smoker Plan: Continue antibiotics Continue supportive care measures Continue IV fluids Check the final report on his cultures and sensitivities and adjust antibiotics accordingly in the meantime continue Zosyn Surgery is not recommending any surgical intervention at this point Interventional radiology is not recommending any drainage of the necrotic tumor area/abscess of the liver Protonix for GI prophylaxis Continue DVT prophylaxis We'll continue to follow Time with Patient: Less than 30
--- NOTE | 2023-01-27 14:34 | P.PN ---
Subjective Progress Note Date: 01/27/23 H&P Date: 01/26/23 Chief Complaint: Abdominal pain, nausea vomiting This is a pleasant 72-year-old gentleman with past medical history of right renal cancer status post nephrectomy, bladder cancer, COPD, hypertension, osteoarthritis, former nicotine dependence and multiple other medical issues presented to the ER with nausea, vomiting, diarrhea ,abdominal pain, abdominal distention, jaundiced and confusion. 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 Reports on 3:30 he had a paracentesis with liver biopsy, pathology pending in addition to diagnostic paracentesis. He reports also that he developed a cough, increased jaundice and dark and urine, postprocedure. In October patient developed new symptoms of generalized abdominal discomfort, early satiety,decreased appetite and subsequent weight loss. States unintentional weight loss of 40 pounds in 4 months. Low grade fever on admission with mild tachycardia. Hypotensive requiring pressor support, currently on Levophed. Hypothermic requiring bear hugger. Chest x-ray reporting no acute cardiopulmonary disease/process. CT of abdomen and pelvis reported interval development of suspected intrahepatic abscess given history of leukocytosis and fever.Findings likely result represent necrosis of prior mass with superimposed infection. On admission, Lactic acid initially 6.3, currently at 3. afebrile, (T-max 100.4), WBC 19.2, hemoglobin 10.1, hematocrit 31.8, platelets 318. INR 1.2. Sodium 138, potassium 5.3, chloride 104, Bicarb 16, BUN 46, creatinine 2.02, glucose 137. LFTs are elevated and his AST is 397, a 92, alkaline phosphatase 624. Ammonia 55. UA negative. Hepatitis serology pending. Maintained on Flagyl and Zosyn. Continues on IV fluid resuscitation as per sepsis protocol. 01/27/2023 Levophed was weaned off yesterday afternoon. Maintained on IV fluid hydration. 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 Peritoneal pathologic diagnosis reporting no cytologically malignant cells identified. Continues on antibiotics as per infectious disease. Surgical versus IR drainage of abscess/fluid recommended per ID, pending. Positive abdominal pain, increased distention. Bear hugger off, maintaining temperatures currently of 97.6F. afebrile, hemoglobin 9, platelets 212, BUN 50, creatinine 1.66. LFTs improving, T bili 3.1, AST 262, ALT 77, alk phos 399. Ammonia 14. CRP 24.3. Objective - Vital Signs Vital signs: Vital Signs Temp 97.2 F L 01/27/23 12:00 Pulse 86 01/27/23 12:00 Resp 18 01/27/23 12:00 BP 98/49 01/27/23 12:00 Pulse Ox 95 01/27/23 12:00 FiO2 Intake & Output 01/26/23 01/27/23 01/27/23 18:59 06:59 18:59 Intake Total 7923.504 8577 940 Output Total 360 1994 390 Balance 1146.154 -695 550 Weight 81 kg Intake: IV 1490 1300 700 Piperacillin-Tazobactam 3 200 100 .375 gm In Sodium Chloride 0.9% 100 ml @ 25 mls/hr IVPB Q8H [facility] Rx#: [id number] Sodium Chloride 0.9% 1, 1390 1100 600 000 ml @ 100 mls/hr IV . Q10H [facility] Rx#:[id number] metroNIDAZOLE-NS PMX 500 100 mg In Saline 1 100ml.bag @ 100 mls/hr IVPB Q8H [facility] Rx#:[id number] Intake, IV Titration 16.154 Amount Norepinephrine 4 mg In 16.154 Sodium Chloride 0.9% 250 ml @ 0.03 MCG/KG/MIN 9.03 mls/hr IV .Q24H [facility] Rx#: [id number] Oral 240 Output: Urine 360 1994 Other: Voiding Method Indwelling Catheter Indwelling Catheter Indwelling Catheter # Bowel Movements 1 - Exam PHYSICAL EXAM: VITAL SIGNS: [As above] GENERAL: Sitting up in bed, no acute distress HEENT: Atraumatic, normocephalic, sclera icterus NECK: Supple, No JVD. No thyroid enlargement. No LNs CARDIOVASCULAR: S1, S2 regular. No murmur RESPIRATION: Breath sounds diminished in the bases. No rhonchi or crackles. No bronchial breathing. ABDOMEN: Soft, distended, tender, ascites . No guarding.Positive hepatosplenomegaly.hypoactive Bowel sounds. LEGS: Pedal edema. PSYCHIATRY: Alert and oriented X3, mood and affect normal. NERVOUS SYSTEM: Cranial N 2-12 grossly normal. No focal deficits. Strength and sensation grossly intact. Skin: Warm and dry ,no rash Microbiology 01/25/23 15:45 Blood Blood Culture Gram Stain - Preliminary 01/25/23 15:45 Blood Blood Culture - Preliminary Escherichia coli Klebsiella pneumoniae Alpha Hemolytic Streptococcus 01/25/23 16:00 Blood Blood Culture Gram Stain - Preliminary 01/25/23 15:45 Blood Blood Culture - Final 01/25/23 16:00 Blood Blood Culture - Final - Labs CBC & Chem 7: 01/27/23 05:31 01/27/23 05:31 Labs: Abnormal Lab Results - Last 24 Hours (Table) 01/26/23 01/26/23 01/27/23 Range/Units 09:18 09:18 05:31 RBC 3.20 L (4.30-5.90) m/uL Hgb 9.0 L (13.0-17.5) gm/dL Hct 30.0 L (39.0-53.0) % MCHC 29.8 L (31.0-37.0) g/dL RDW 16.0 H (11.5-15.5) % Neutrophils # 9.3 H (1.3-7.7) k/uL Lymphocytes # 0.5 L (1.0-4.8) k/uL Chloride (98-107) mmol/L Carbon Dioxide (22-30) mmol/L BUN (9-20) mg/dL Creatinine (0.66-1.25) mg/dL Glucose (74-99) mg/dL Calcium (8.4-10.2) mg/dL Total Bilirubin (0.2-1.3) mg/dL AST (17-59) U/L ALT (4-49) U/L Alkaline Phosphatase (38-126) U/L C-Reactive Protein (<1.0) mg/dL Albumin (3.5-5.0) g/dL Vitamin B12 2647.0 H (200.0-944.0) pg/mL Hep C IgG Ab Reactive A (Nonreactive) 01/27/23 Range/Units 05:31 RBC (4.30-5.90) m/uL Hgb (13.0-17.5) gm/dL Hct (39.0-53.0) % MCHC (31.0-37.0) g/dL RDW (11.5-15.5) % Neutrophils # (1.3-7.7) k/uL Lymphocytes # (1.0-4.8) k/uL Chloride 109 H (98-107) mmol/L Carbon Dioxide 17 L (22-30) mmol/L BUN 50 H (9-20) mg/dL Creatinine 1.66 H (0.66-1.25) mg/dL Glucose 110 H (74-99) mg/dL Calcium 7.7 L (8.4-10.2) mg/dL Total Bilirubin 3.1 H (0.2-1.3) mg/dL AST 262 H (17-59) U/L ALT 77 H (4-49) U/L Alkaline Phosphatase 399 H (38-126) U/L C-Reactive Protein 24.3 H (<1.0) mg/dL Albumin 2.4 L (3.5-5.0) g/dL Vitamin B12 (200.0-944.0) pg/mL Hep C IgG Ab (Nonreactive) Microbiology - Last 24 Hours (Table) 01/25/23 15:45 Blood Culture Gram Stain - Preliminary Blood Blood Culture - Preliminary Escherichia coli Klebsiella pneumoniae Alpha Hemolytic Streptococcus 01/25/23 16:00 Blood Culture Gram Stain - Preliminary Blood Assessment and Plan Assessment: Sepsis with septic shock secondary to suspected liver abscess, in a patient with known liver mass suspicious for metastasis, possible infected necrotic tumor. Recent liver biopsy on 01/20/2023, pathology reporting renal cell carcinoma. E. coli, Klebsiella pneumoniae,Alpha Hemolytic streptococcus Bacteremia reported in preliminary blood culture. Hypotension , status post pressor dependent ,secondary to the above Hypothermic, status post bear hugger Unintentional weight loss of 40 pounds in 4 months Hyperammonia an elevated LFTs secondary to the above Lactic acidosis secondary to the above Metabolic acidosis secondary to all the above Acute renal failure COPD, stable History of renal cell carcinoma status post right nephrectomy, approximately 6 years ago History of bladder cancer, approximately 2020 Prior nicotine dependence Plan: Continue on current medication regime ,monitoring and symptomatic treatment. Surgical versus IR drainage of abscess/fluid as recommended per ID, pending-potential transfer out to tertiary care center. Antibiotics as per Infectious disease. Prognosis guarded given multiple complex medical issues. The impression and plan of care has been dictated as directed. : I performed a history and examination of this patient, discussed the same with the dictator. I agree with the dictator's note ,documented as a scribe. Any additional findings or plans will be noted.
--- NOTE | 2023-01-27 17:51 | P.PN ---
Subjective Progress Note Date: 01/27/23 Principal diagnosis: Possible liver abscess and bacteremia Patient is a 72 year old male with a past medical history significant for right nephrectomy secondary to renal cell carcinoma COPD previous lung cancer ex-smoker with recent diagnosis of liver mass that has been biopsied on 01/20/2023 , bone scan that was negative for any bony metastasis patient presenting to the ER for evaluation of generalized not feeling well mental status changes , patient noticed to be hypotensive requiring admission to the ICU did have a CT suspicious for possible liver abscess did have gram-negative bacteremia On today's evaluation that is 01/27/2023, the patient denies having any fever or any chills, the patient is breathing comfortably currently on room air denies any chest pain or shortness of breath occasional cough has been complaining of some pain/upper quadrant area nausea but no vomiting and no diarrhea Objective - Vital Signs Vital signs: Vital Signs Temp 97.2 F L 01/27/23 12:00 Pulse 86 01/27/23 12:00 Resp 18 01/27/23 12:00 BP 98/49 01/27/23 12:00 Pulse Ox 95 01/27/23 12:00 FiO2 Intake & Output 01/26/23 01/27/23 01/27/23 18:59 06:59 18:59 Intake Total 9567.431 8371 940 Output Total 360 1994 390 Balance 1146.154 -695 550 Weight 81 kg Intake: IV 1490 1300 700 Piperacillin-Tazobactam 3 200 100 .375 gm In Sodium Chloride 0.9% 100 ml @ 25 mls/hr IVPB Q8H [facility] Rx#: [id number] Sodium Chloride 0.9% 1, 1390 1100 600 000 ml @ 100 mls/hr IV . Q10H [facility] Rx#:[id number] metroNIDAZOLE-NS PMX 500 100 mg In Saline 1 100ml.bag @ 100 mls/hr IVPB Q8H [facility] Rx#:[id number] Intake, IV Titration 16.154 Amount Norepinephrine 4 mg In 16.154 Sodium Chloride 0.9% 250 ml @ 0.03 MCG/KG/MIN 9.03 mls/hr IV .Q24H [facility] Rx#: [id number] Oral 240 Output: Urine 360 1994 Other: Voiding Method Indwelling Catheter Indwelling Catheter Indwelling Catheter # Bowel Movements 1 - Exam GENERAL DESCRIPTION: An elderly male lying in bed in no distress RESPIRATORY SYSTEM: Unlabored breathing , decreased breath sounds at bases HEART: S1 S2 regular rate and rhythm , ABDOMEN: Soft , mild right upper quadrant tenderness EXTREMITIES: No edema feet - Labs CBC & Chem 7: 01/27/23 05:31 01/27/23 05:31 Labs: Abnormal Lab Results - Last 24 Hours (Table) 01/26/23 01/26/23 01/27/23 Range/Units 09:18 09:18 05:31 RBC 3.20 L (4.30-5.90) m/uL Hgb 9.0 L (13.0-17.5) gm/dL Hct 30.0 L (39.0-53.0) % MCHC 29.8 L (31.0-37.0) g/dL RDW 16.0 H (11.5-15.5) % Neutrophils # 9.3 H (1.3-7.7) k/uL Lymphocytes # 0.5 L (1.0-4.8) k/uL Chloride (98-107) mmol/L Carbon Dioxide (22-30) mmol/L BUN (9-20) mg/dL Creatinine (0.66-1.25) mg/dL Glucose (74-99) mg/dL Calcium (8.4-10.2) mg/dL Total Bilirubin (0.2-1.3) mg/dL AST (17-59) U/L ALT (4-49) U/L Alkaline Phosphatase (38-126) U/L C-Reactive Protein (<1.0) mg/dL Albumin (3.5-5.0) g/dL Vitamin B12 2647.0 H (200.0-944.0) pg/mL Hep C IgG Ab Reactive A (Nonreactive) 01/27/23 Range/Units 05:31 RBC (4.30-5.90) m/uL Hgb (13.0-17.5) gm/dL Hct (39.0-53.0) % MCHC (31.0-37.0) g/dL RDW (11.5-15.5) % Neutrophils # (1.3-7.7) k/uL Lymphocytes # (1.0-4.8) k/uL Chloride 109 H (98-107) mmol/L Carbon Dioxide 17 L (22-30) mmol/L BUN 50 H (9-20) mg/dL Creatinine 1.66 H (0.66-1.25) mg/dL Glucose 110 H (74-99) mg/dL Calcium 7.7 L (8.4-10.2) mg/dL Total Bilirubin 3.1 H (0.2-1.3) mg/dL AST 262 H (17-59) U/L ALT 77 H (4-49) U/L Alkaline Phosphatase 399 H (38-126) U/L C-Reactive Protein 24.3 H (<1.0) mg/dL Albumin 2.4 L (3.5-5.0) g/dL Vitamin B12 (200.0-944.0) pg/mL Hep C IgG Ab (Nonreactive) Microbiology - Last 24 Hours (Table) 01/25/23 15:45 Blood Culture Gram Stain - Preliminary Blood Blood Culture - Preliminary Escherichia coli Klebsiella pneumoniae Alpha Hemolytic Streptococcus 01/25/23 16:00 Blood Culture Gram Stain - Preliminary Blood Assessment and Plan (1) Gram-negative bacteremia Current Visit: Yes Status: Acute Code(s): R78.81 - BACTEREMIA SNOMED Code(s): 926826380461 (2) Hepatic abscess Current Visit: Yes Status: Acute Priority: High Code(s): K75.0 - ABSCESS OF LIVER SNOMED Code(s): 86835518 Plan: 1-Patient presented to hospital with sepsis/septic shock in this patient with fever elevated white count tachycardia elevated lactic acid hypotension requiring pressor support now with evidence of gram-negative bacteremia source is likely liver abscess or tumor necrosis in this patient who did have a recent biopsy and will need to cover for the resistant gram-negative 2-blood cultures has been repeated document clearance of bacteremia 3-IR is asking Gen. surgery for drainage of this abscess per the nursing staff 4-patient to continue with Zosyn 3.375 g every 8 hours
[2023-01-28] MEDS: HYDROmorphone 0.5 MG/0.5 ML SYRINGE IVP PRN (04:21)
[2023-01-28] MEDS: PIPERACILLIN-TAZOBACTAM 3.375 GM in SODIUM CHLORIDE 0.9% 100 ML IVPB SCH ×3 (04:27→20:17)
[2023-01-28 06:14] LABS: Calcium 7.7 mg/dL (8.4-10.2); Potassium 4.4 mmol/L (3.5-5.1)
[2023-01-28 06:29] LABS: Basophils % (A) 0 %; Eosinophils # (A) 0.1 k/uL (0-0.7); Eosinophils % (A) 1 %; HCT 29.8 % (39.0-53.0); HGB 9.3 gm/dL (13.0-17.5); Hypochromasia Marked; Lymphocytes # (A) 0.6 k/uL (1.0-4.8); Lymphocytes % (A) 6 %; MCH 29.8 pg (25.0-35.0); MCHC 31.1 g/dL (31.0-37.0); MCV 95.6 fL (80.0-100.0); Mean Platelet Volume 10.1; Monocytes # (A) 0.7 k/uL (0-1.0); Monocytes % (A) 8 %; Neutrophils # (A) 7.8 k/uL (1.3-7.7); Neutrophils % (A) 83 %; Platelet Count 193 k/uL (150-450); RBC 3.11 m/uL (4.30-5.90); RDW 15.6 % (11.5-15.5); WBC 9.4 k/uL (3.8-10.6)
[2023-01-28] MEDS: SODIUM CHLORIDE 0.9% 1,000 ML IV SCH ×2 (06:49→11:51)
[2023-01-28] MEDS ORDERED: HYDROmorphone 1 MG/ML 1 ML SYRINGE IVP STA (07:03)
[2023-01-28] MEDS: NOREPINEPHRINE 4 MG in SODIUM CHLORIDE 0.9% 250 ML IV SCH (07:55)
[2023-01-28] MEDS: PANTOPRAZOLE 40 MG/10 ML VIAL IV SCH (08:34)
[2023-01-28] MEDS: HEPARIN SODIUM,PORCINE/PF 5,000 UNIT/0.5 ML SYRINGE SQ SCH ×2 (08:34→20:18)
[2023-01-28] MEDS: HYDROmorphone 1 MG/ML 1 ML SYRINGE IVP PRN ×2 (09:36→16:50)
--- NOTE | 2023-01-28 10:28 | XR ---
EXAMINATION TYPE: XR chest 1V portable DATE OF EXAM: 01/28/2023 COMPARISON: 01/25/2023 HISTORY: Shortness of breath TECHNIQUE: Single frontal view of the chest is obtained. FINDINGS: Right lower lobe infiltrate small effusion. Heart size normal. No overt failure or pneumot horax. Diffuse osteopenia with AC joint arthropathy. Underlying COPD noted. IMPRESSION: Right lower lobe infiltrate and small effusion.
--- NOTE | 2023-01-28 11:29 | US ---
EXAMINATION TYPE: US abdomen limited DATE OF EXAM: 01/28/2023 COMPARISON: CT CLINICAL HISTORY: assess for fluid pocket please. Assess for fluid pocket. Minimal fluid seen LLQ. Pocket of fluid seen laterally within the RLQ. IMPRESSION: Small amount ascites
--- NOTE | 2023-01-28 12:04 | P.PN ---
Progress Note - Text Progress Note Date: 01/28/23 Patient remains in ICU. He is clinically improved. His white count is 9.3. His hemoglobin is 9.4. He has minimal abdominal pain. The patient most likely has tumor necrosis of his liver. No surgical intervention is planned. If he needs surgery, he would benefit from being transferred to a hepatobiliary surgeon at a tertiary care center.
--- NOTE | 2023-01-28 12:46 | P.PN ---
Subjective Progress Note Date: 01/28/23 H&P Date: 01/26/23 Chief Complaint: Abdominal pain, nausea vomiting This is a pleasant 72-year-old gentleman with past medical history of right renal cancer status post nephrectomy, bladder cancer, COPD, hypertension, osteoarthritis, former nicotine dependence and multiple other medical issues presented to the ER with nausea, vomiting, diarrhea ,abdominal pain, abdominal distention, jaundiced and confusion. 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 Reports on 3:30 he had a paracentesis with liver biopsy, pathology pending in addition to diagnostic paracentesis. He reports also that he developed a cough, increased jaundice and dark and urine, postprocedure. In October patient developed new symptoms of generalized abdominal discomfort, early satiety,decreased appetite and subsequent weight loss. States unintentional weight loss of 40 pounds in 4 months. Low grade fever on admission with mild tachycardia. Hypotensive requiring pressor support, currently on Levophed. Hypothermic requiring bear hugger. Chest x-ray reporting no acute cardiopulmonary disease/process. CT of abdomen and pelvis reported interval development of suspected intrahepatic abscess given history of leukocytosis and fever.Findings likely result represent necrosis of prior mass with superimposed infection. On admission, Lactic acid initially 6.3, currently at 3. afebrile, (T-max 100.4), WBC 19.2, hemoglobin 10.1, hematocrit 31.8, platelets 318. INR 1.2. Sodium 138, potassium 5.3, chloride 104, Bicarb 16, BUN 46, creatinine 2.02, glucose 137. LFTs are elevated and his AST is 397, a 92, alkaline phosphatase 624. Ammonia 55. UA negative. Hepatitis serology pending. Maintained on Flagyl and Zosyn. Continues on IV fluid resuscitation as per sepsis protocol. 01/27/2023 Levophed was weaned off yesterday afternoon. Maintained on IV fluid hydration. 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 Peritoneal pathologic diagnosis reporting no cytologically malignant cells identified. Continues on antibiotics as per infectious disease. Surgical versus IR drainage of abscess/fluid recommended per ID, pending. Positive abdominal pain, increased distention. Bear hugger off, maintaining temperatures currently of 97.6F. afebrile, hemoglobin 9, platelets 212, BUN 50, creatinine 1.66. LFTs improving, T bili 3.1, AST 262, ALT 77, alk phos 399. Ammonia 14. CRP 24.3. 01/28/2023 increased abdominal pain, increased ascites, borderline hypotension with subsequent worsening hypoxia, now requiring 4 L nasal cannula to maintain O2 sats in the 90s-currently 94%. Evaluated by interventional radiology reporting difficult access route, placed IR consult on hold and referred back to general surgery. General surgery recommended no surgical intervention at this time, and if he requires a surgical procedure to transfer to tertiary care center/hepatobiliary surgeon. PCP speaking with oncologist to determine if transfer required at this time to a tertiary care center. Maintained on Zosyn. Afebrile, normal WBC. Hemoglobin 9.3, platelets 193. BUN 44, creatinine 1.51 Objective - Vital Signs Vital signs: Vital Signs Temp 97.8 F 01/28/23 04:00 Pulse 86 01/28/23 11:00 Resp 17 01/28/23 11:00 BP 91/58 01/28/23 11:00 Pulse Ox 93 L 01/28/23 11:00 FiO2 Intake & Output 01/27/23 01/28/23 01/28/23 18:59 06:59 18:59 Intake Total 1540 1300 250 Output Total 690 550 195 Balance 850 750 55 Weight 86.2 kg Intake: IV 1300 1300 Piperacillin-Tazobactam 3 100 .375 gm In Sodium Chloride 0.9% 100 ml @ 25 mls/hr IVPB Q8H [facility] Rx#: [id number] Sodium Chloride 0.9% 1, 1200 1300 000 ml @ 50 mls/hr IV . Q20H [facility] Rx#:[id number] Oral 240 250 Output: Urine 690 550 195 Other: Voiding Method Indwelling Catheter Indwelling Catheter Indwelling Catheter - Exam PHYSICAL EXAM: VITAL SIGNS: [As above] GENERAL: Sitting up in bed, no acute distress HEENT: Atraumatic, normocephalic NECK: Supple, No JVD. CARDIOVASCULAR: S1, S2 regular. No murmur. RESPIRATION: Breath sounds diminished in the bases. ABDOMEN: Soft, increased distension, tender, ascites . No guarding.Positive hepatosplenomegaly.hypoactive Bowel sounds. LEGS: no edema. PSYCHIATRY: Alert and oriented X3, mood and affect normal. NERVOUS SYSTEM: Cranial N 2-12 grossly normal. No focal deficits. Strength and sensation grossly intact. Skin: Warm and dry ,no rash Microbiology 01/25/23 15:45 Blood Blood Culture Gram Stain - Preliminary 01/25/23 15:45 Blood Blood Culture - Preliminary Escherichia coli Klebsiella pneumoniae Alpha Hemolytic Streptococcus 01/27/23 05:31 Blood Blood Culture - Preliminary No Growth after 24 hours 01/25/23 16:00 Blood Blood Culture Gram Stain - Preliminary 01/25/23 15:45 Blood Blood Culture - Final 01/25/23 16:00 Blood Blood Culture - Final - Labs CBC & Chem 7: 01/28/23 05:28 01/28/23 05:28 Labs: Abnormal Lab Results - Last 24 Hours (Table) 01/26/23 01/28/23 01/28/23 Range/Units 09:18 05:28 05:28 RBC 3.11 L (4.30-5.90) m/uL Hgb 9.3 L (13.0-17.5) gm/dL Hct 29.8 L (39.0-53.0) % RDW 15.6 H (11.5-15.5) % Neutrophils # 7.8 H (1.3-7.7) k/uL Lymphocytes # 0.6 L (1.0-4.8) k/uL Chloride 112 H (98-107) mmol/L Carbon Dioxide 15 L (22-30) mmol/L BUN 44 H (9-20) mg/dL Creatinine 1.51 H (0.66-1.25) mg/dL Glucose 104 H (74-99) mg/dL Calcium 7.7 L (8.4-10.2) mg/dL RBC Folate 1,115 H (280 - 791) ng/mL Copper 1658 H (665-1480) ug/L Microbiology - Last 24 Hours (Table) 01/25/23 15:45 Blood Culture Gram Stain - Preliminary Blood Blood Culture - Preliminary Escherichia coli Klebsiella pneumoniae Alpha Hemolytic Streptococcus 01/27/23 05:31 Blood Culture - Preliminary Blood No Growth after 24 hours Assessment and Plan Assessment: Sepsis with septic shock secondary to suspected liver abscess, in a patient with known liver mass suspicious for metastasis, possible infected necrotic tumor. Recent liver biopsy on 01/20/2023, pathology reporting renal cell carcinoma. E. coli, Klebsiella pneumoniae,Alpha Hemolytic streptococcus Bacteremia reported in preliminary blood culture. Hypotension , status post pressor dependent ,secondary to the above Hypothermic, status post bear hugger Unintentional weight loss of 40 pounds in 4 months Hyperammonia an elevated LFTs secondary to the above Lactic acidosis secondary to the above Metabolic acidosis secondary to all the above Acute renal failure COPD, stable History of renal cell carcinoma status post right nephrectomy, approximately 6 years ago History of bladder cancer, approximately 2020 Prior nicotine dependence Plan: Continue on current medication regime ,monitoring and symptomatic treatment. Interventional radiology and surgery not recommending surgical intervention at this time. Further recommendations per oncology regarding potential transfer to tertiary care center. Antibiotics as per Infectious disease. Prognosis guarded given multiple complex medical issues. The impression and plan of care has been dictated as directed. : I performed a history and examination of this patient, discussed the same with the dictator. I agree with the dictator's note ,documented as a scribe. Any additional findings or plans will be noted.
--- NOTE | 2023-01-28 13:19 | P.PN ---
Subjective Progress Note Date: 01/28/23 Principal diagnosis: Sepsis/septic shock, necrotic liver tumor, possible abscess. I'm seeing this patient in new consultation today 01/26/2023 in the emergency room for ICU management. This is a pleasant 72-year-old white male with past medical history of of a suspicious liver mass, previous right nephrectomy related to renal cell carcinoma, COPD, hypertension, cholecystectomy, appendectomy, previous skin cancer, ex-smoker. A CT of the chest, abdomen and pelvis with contrast on 12/29/2022 showed a large heterogenous mass involving the posterior aspect of the right lobe of the liver that measures at least 9.2 x 8.1 cm in diameter. 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 Patient recently had a CT-guided biopsy of the liver on 01/20/2023, and pathology results are pending. Patient has also had diagnostic paracentesis. A bone scan showed no evidence of osseous metastasis. Patient presented to the ER yesterday afternoon with chief complaint of nonlocalized abdominal pain, nausea, vomiting, and. Patient presented with a friend who states that he seems more confused than normal. Patient is currently sitting up in bed, on room air, in no acute distress. Chest x-ray showed no acute cardiopulmonary process. Abdomen is soft but painful to palpation.. Patient denies any matting hematemesis or bloody bowel movements. Patient does appear slightly jaundiced. Urine is orange. An abdominal CT without contrast on admission showed an interval development of suspected intrahepatic abscess. Findings which likely represent necrosis of prior mass with superimposed infection. The remainder of the mass was suboptimally evaluated given lack of IV contrast. There was also a redemonstration of the pneumobilia initially seen on previous exam, trace ascites and splenomegaly. Patient is hypotensive after a total of 2 L normal saline fluid resuscitation. For this reason, patient will be transferred to the intensive care unit for vasopressor support. Patient also has a suspicious urinalysis with leukocyte esterase and moderate bacteria. Patient's lactic acid level was originally 6.3 and is down to 4.2 after fluid resuscitation. Patient is empirically covered on Unasyn. CBC on arrival shows leukocytosis with a WBC count of 19.2, hemoglobin 10.1, hematocrit 31.8, platelets 318,000. PT/INR was 12 and 1.2. BMP shows a sodium 138, potassium 5.3, chloride 104, serum CO2 16, BUN 46, creatinine 2.02, glucose 137. Normal saline is infusing at 130 mL per hour. LFTs are elevated and his AST is 397, a 92, alkaline phosphatase 624. Ammonia 55. Patient's condition is critical, and he will be transferred to the intensive care unit. Patient was reevaluated today on 01/27/2023, remains in the ICU, patient is hemodynamically stable. Off norepinephrine, IV fluid 0.9 normal saline at 100 mL per hour. His blood cultures came back positive for E. coli and Klebsiella pneumonia as well as alphahemolytic streptococcus. Patient has been all along on antibiotics, presently on Zosyn. And that correlates with his initial presentation of possible liver abscess and sepsis/septic shock. Nonetheless the patient is looking much improved. And looks hemodynamically stable. Based on the surgical input, no need for surgery, patient is now receiving antibiotics and I would suggest that we continue medical treatment if surgery is to be considered down the line patient related to be transferred to a tertiary care center. CBC today is normal that was abnormal renal profile showed a BUN of 50 creatinine 1.66, improving to his baseline creatinine on admission of 2.0 Reevaluated today on 01/28/2023 patient remains in the ICU, actually he is doing better than expected he is on 4 L nasal cannula IV fluid is 0.9 normal saline at 100 mL per hour hemodynamically stable, remains on antibiotics for his sepsis and septic shock from liver abscess. Surgery is recommending referral to a tertiary care center for a hepatobiliary surgeon however oncology believes that the patient has poor prognosis and we'll recommend mostly palliative care. In the meantime continue antibiotics empirically and could potentially transfer out of the ICU the patient remains hemodynamically stable today. May need long course of IV antibiotics via a PICC line that could be arranged for next week. WBC is 9.4 hemoglobin 9.3 left first of normal renal profile showed a BUN of 44 creatinine 1.51 Objective - Vital Signs Vital signs: Vital Signs Temp 97.8 F 01/28/23 04:00 Pulse 86 01/28/23 11:00 Resp 17 01/28/23 11:00 BP 91/58 01/28/23 11:00 Pulse Ox 93 L 01/28/23 11:00 FiO2 Intake & Output 01/27/23 01/28/23 01/28/23 18:59 06:59 18:59 Intake Total 1540 1300 250 Output Total 690 550 195 Balance 850 750 55 Weight 86.2 kg Intake: IV 1300 1300 Piperacillin-Tazobactam 3 100 .375 gm In Sodium Chloride 0.9% 100 ml @ 25 mls/hr IVPB Q8H ROBERTA Rx#: [id number] Sodium Chloride 0.9% 1, 1200 1300 000 ml @ 50 mls/hr IV . Q20H ROBERTA Rx#:[id number] Oral 240 250 Output: Urine 690 550 195 Other: Voiding Method Indwelling Catheter Indwelling Catheter Indwelling Catheter - Exam Physical Exam revealed a 72-year-old white male in no distress. Patient is on 4 lit O2 sat is 94%. Head: Atraumatic, normocephalic. HEENT:[Neck is supple.] [No neck masses.] [No thyromegaly.] [No JVD.] Chest: [Clear throughout, no crackles, no rhonchi, no wheezes.] Cardiac Exam: [Normal S1 and S2, no S3 gallop, no murmur.] Abdomen: [Soft, nontender, no megaly, no rebound, no guarding, normal bowel sounds.] Extremities: [No clubbing, no edema, no cyanosis.] Neurological Exam: [No focal neurologic deficit.] Alert and oriented 3. Psychiatric: Normal mood, affect and normal mental status examination. Skin: No rashes - Labs CBC & Chem 7: 01/28/23 05:28 01/28/23 05:28 Labs: Abnormal Lab Results - Last 24 Hours (Table) 01/26/23 01/28/23 01/28/23 Range/Units 09:18 05:28 05:28 RBC 3.11 L (4.30-5.90) m/uL Hgb 9.3 L (13.0-17.5) gm/dL Hct 29.8 L (39.0-53.0) % RDW 15.6 H (11.5-15.5) % Neutrophils # 7.8 H (1.3-7.7) k/uL Lymphocytes # 0.6 L (1.0-4.8) k/uL Chloride 112 H (98-107) mmol/L Carbon Dioxide 15 L (22-30) mmol/L BUN 44 H (9-20) mg/dL Creatinine 1.51 H (0.66-1.25) mg/dL Glucose 104 H (74-99) mg/dL Calcium 7.7 L (8.4-10.2) mg/dL RBC Folate 1,115 H (280 - 791) ng/mL Copper 1658 H (665-1480) ug/L Microbiology - Last 24 Hours (Table) 01/25/23 15:45 Blood Culture Gram Stain - Preliminary Blood Blood Culture - Preliminary Escherichia coli Klebsiella pneumoniae Alpha Hemolytic Streptococcus 01/27/23 05:31 Blood Culture - Preliminary Blood No Growth after 24 hours Assessment and Plan Assessment: Sepsis related to suspected liver abscess. Or most likely the patient has a necrotic tumor involving the liver. Bacteremia secondary to E. coli, Klebsiella pneumonia, and alpha hemolytic strep, most likely source is his liver abscess. High anion gap metabolic acidosis secondary to lactic acidosis, improving. Known liver mass suspicious for metastasis. Suspect mild to moderate ascites. Elevated LFTs and ammonia secondary to above. Acute kidney injury, improving. Background COPD which is stable at the moment, on room air History of previous right nephrectomy related to renal cell carcinoma History of cholecystectomy History of appendectomy History of previous skin cancer Ex-smoker Plan: Check ultrasound for possible paracentesis patient may have moderate amount of ascites based on physical examination. Continue antibiotics Continue supportive care measures Continue IV fluids Check the final report on his cultures and sensitivities and adjust antibiotics accordingly in the meantime continue Zosyn Surgery is not recommending any surgical intervention at this point, however if he needs surgical intervention he'll need a hepatobiliary surgeon Interventional radiology is not recommending any drainage of the necrotic tumor area/abscess of the liver Oncology is recommending palliative care and I think that is appropriate considering his liver metastases. Protonix for GI prophylaxis Continue DVT prophylaxis We'll continue to follow Time with Patient: Less than 30
--- NOTE | 2023-01-28 15:07 | P.PN ---
Subjective Progress Note Date: 01/28/23 Principal diagnosis: liver mass At today's visit patient is resting comfortably in bed. Patient Reports intermittent right lower quadrant pain. Reports pain medications are helping improve pain. Also reports abdominal distention. Patient denies nausea vomiting diarrhea fever and chills. IR has been consulted for evaluation for additional paracentesis. No other reported complaints at this time Objective - Vital Signs Vital signs: Vital Signs Temp 97.8 F 01/28/23 04:00 Pulse 85 01/28/23 13:00 Resp 16 01/28/23 13:00 BP 106/78 01/28/23 13:00 Pulse Ox 95 01/28/23 13:00 FiO2 Intake & Output 01/27/23 01/28/23 01/28/23 18:59 06:59 18:59 Intake Total 1540 1300 250 Output Total 690 550 225 Balance 850 750 25 Weight 86.2 kg Intake: IV 1300 1300 Piperacillin-Tazobactam 3 100 .375 gm In Sodium Chloride 0.9% 100 ml @ 25 mls/hr IVPB Q8H ROBERTA Rx#: [id number] Sodium Chloride 0.9% 1, 1200 1300 000 ml @ 50 mls/hr IV . Q20H ROBERTA Rx#:[id number] Oral 240 250 Output: Urine 690 550 225 Other: Voiding Method Indwelling Catheter Indwelling Catheter Indwelling Catheter - Constitutional General appearance: Present: average body habitus, no acute distress - EENT Eyes: Present: anicteric sclerae, EOMI ENT: Present: hearing grossly normal - Respiratory Details: breathing is even and unlabored - Cardiovascular Details: skin is warm and dry - Gastrointestinal General gastrointestinal: Present: distended. Absent: tenderness - Integumentary Integumentary: Present: normal - Neurologic Neurologic Comment(s): grossly intact - Musculoskeletal Musculoskeletal: Present: strength equal bilaterally - Psychiatric Psychiatric: Present: A&O x's 3, appropriate affect, intact judgment & insight - Labs CBC & Chem 7: 01/28/23 05:28 01/28/23 05:28 Labs: Abnormal Lab Results - Last 24 Hours (Table) 01/26/23 01/28/23 01/28/23 Range/Units 09:18 05:28 05:28 RBC 3.11 L (4.30-5.90) m/uL Hgb 9.3 L (13.0-17.5) gm/dL Hct 29.8 L (39.0-53.0) % RDW 15.6 H (11.5-15.5) % Neutrophils # 7.8 H (1.3-7.7) k/uL Lymphocytes # 0.6 L (1.0-4.8) k/uL Chloride 112 H (98-107) mmol/L Carbon Dioxide 15 L (22-30) mmol/L BUN 44 H (9-20) mg/dL Creatinine 1.51 H (0.66-1.25) mg/dL Glucose 104 H (74-99) mg/dL Calcium 7.7 L (8.4-10.2) mg/dL RBC Folate 1,115 H (280 - 791) ng/mL Microbiology - Last 24 Hours (Table) 01/25/23 15:45 Blood Culture Gram Stain - Preliminary Blood Blood Culture - Preliminary Escherichia coli Klebsiella pneumoniae Alpha Hemolytic Streptococcus 01/27/23 05:31 Blood Culture - Preliminary Blood No Growth after 24 hours Assessment and Plan (1) Hepatic abscess Current Visit: Yes Status: Acute Priority: High Code(s): K75.0 - ABSCESS OF LIVER SNOMED Code(s): 78998514 (2) Renal cell adenocarcinoma Current Visit: Yes Status: Acute Priority: High Code(s): C64.9 - MALIGNANT NEOPLASM OF UNSP KIDNEY, EXCEPT RENAL PELVIS SNOMED Code(s): 405501003 Plan: Hepatic abscess: -Status post recent liver biopsy, likely source based on imaging -Meets sepsis criteria, in ICU. Supportive care and antibiotics. Surgery and ID on consult. -Defer to Critical Care, Surgery and ID for patient's acute situation. Renal cell carcinoma: -Patient is status post liver biopsy. Results showing renal cell carcinoma. Cytology form paracentesis negative for malignant cells. Results were given to the patient at his request, while he was by himself. -Called patient daughter later in day and discussed results -Both discussions consisted of diagnosis, prognosis with and without cancer treatment. Systemic treatment would be the mainstay of care, no surgery or radiation. Patient unfortunately has stage IV disease, treatment intent is pa lliative, to prolong life and palliate cancer symptoms. Patient's daughter let me know that the patient is not understanding everything, he is confused to time and forgetful. We discussed patient's change in cognition/forgetfulness is likely related to hepatic encephalopathy as well a being hard of hearing. -Will schedule f/u in clinic once patient is recovered from acute condition for staging and to discuss treatment options Sepsis is the patient's most acute situation. This is being addressed. Dr. Len Juares spoke with Dr. Etienne regarding diagnosis, and that we would need to do further workup for staging, and that if the patient needs to be transferred in regards to further care in regards to hepatic abscess, transfer would be appropriate, but that transfer for surgical intervention from an oncological standpoint is not warranted at this time as further staging has not been completed yet. Attests: I have performed H&P and developed impression and plan of care for patient, discussed with dictator. I agree with dictated note, documented as a scribe
--- NOTE | 2023-01-28 17:42 | US ---
Ultrasound-guided paracentesis. DATE OF EXAM: 01/28/2023 CLINICAL HISTORY: Ascites The procedure was discussed with the patient. The risks, complications, benefits, and alternatives we re discussed and any questions were answered. Informed consent was obtained. The patient was placed s upine on the ultrasound table and prepped and draped in the usual sterile fashion. All elements of maximal barrier technique were utilized. Under ultrasound guidance, access into the right lower quadrant was obtained, via the paracentesis catheter system and direct ultrasound guidanc e. Sample sent to pathology for analysis. The patient was stable throughout the procedure and remained s table upon discharge from Department of Radiology. IMPRESSION: Successful paracentesis under ultrasound guidance.
--- NOTE | 2023-01-28 17:46 | P.PN ---
Subjective Progress Note Date: 01/28/23 Principal diagnosis: Possible liver abscess and bacteremia Patient is a 72 year old male with a past medical history significant for right nephrectomy secondary to renal cell carcinoma COPD previous lung cancer ex-smoker with recent diagnosis of liver mass that has been biopsied on 01/20/2023 , bone scan that was negative for any bony metastasis patient presenting to the ER for evaluation of generalized not feeling well mental status changes , patient noticed to be hypotensive requiring admission to the ICU did have a CT suspicious for possible liver abscess did have gram-negative bacteremia On today's evaluation that is 01/28/2023, the patient remains to be afebrile, the patient is breathing comfortably currently on 2 L nasal cannula oxygen, the patient denies any chest pain or shortness of breath occasional cough has been complaining of some pain/upper quadrant area nausea but no vomiting and no diarrhea Objective - Vital Signs Vital signs: Vital Signs Temp 97.8 F 01/28/23 04:00 Pulse 86 01/28/23 11:00 Resp 17 01/28/23 11:00 BP 91/58 01/28/23 11:00 Pulse Ox 93 L 01/28/23 11:00 FiO2 Intake & Output 01/27/23 01/28/23 01/28/23 18:59 06:59 18:59 Intake Total 1540 1300 250 Output Total 690 550 195 Balance 850 750 55 Weight 86.2 kg Intake: IV 1300 1300 Piperacillin-Tazobactam 3 100 .375 gm In Sodium Chloride 0.9% 100 ml @ 25 mls/hr IVPB Q8H ROBERTA Rx#: [id number] Sodium Chloride 0.9% 1, 1200 1300 000 ml @ 50 mls/hr IV . Q20H ROBERTA Rx#:[id number] Oral 240 250 Output: Urine 690 550 195 Other: Voiding Method Indwelling Catheter Indwelling Catheter Indwelling Catheter - Exam GENERAL DESCRIPTION: An elderly male lying in bed in no distress RESPIRATORY SYSTEM: Unlabored breathing , decreased breath sounds at bases HEART: S1 S2 regular rate and rhythm , ABDOMEN: Soft , mild right upper quadrant tenderness EXTREMITIES: No edema feet - Labs CBC & Chem 7: 01/28/23 05:28 01/28/23 05:28 Labs: Abnormal Lab Results - Last 24 Hours (Table) 01/26/23 01/28/23 01/28/23 Range/Units 09:18 05:28 05:28 RBC 3.11 L (4.30-5.90) m/uL Hgb 9.3 L (13.0-17.5) gm/dL Hct 29.8 L (39.0-53.0) % RDW 15.6 H (11.5-15.5) % Neutrophils # 7.8 H (1.3-7.7) k/uL Lymphocytes # 0.6 L (1.0-4.8) k/uL Chloride 112 H (98-107) mmol/L Carbon Dioxide 15 L (22-30) mmol/L BUN 44 H (9-20) mg/dL Creatinine 1.51 H (0.66-1.25) mg/dL Glucose 104 H (74-99) mg/dL Calcium 7.7 L (8.4-10.2) mg/dL RBC Folate 1,115 H (280 - 791) ng/mL Copper 1658 H (665-1480) ug/L Microbiology - Last 24 Hours (Table) 01/25/23 15:45 Blood Culture Gram Stain - Preliminary Blood Blood Culture - Preliminary Escherichia coli Klebsiella pneumoniae Alpha Hemolytic Streptococcus 01/27/23 05:31 Blood Culture - Preliminary Blood No Growth after 24 hours Assessment and Plan (1) Gram-negative bacteremia Current Visit: Yes Status: Acute Code(s): R78.81 - BACTEREMIA SNOMED Code(s): 750926348450 (2) Hepatic abscess Current Visit: Yes Status: Acute Priority: High Code(s): K75.0 - ABSCESS OF LIVER SNOMED Code(s): 33233393 Plan: 1-Patient presented to hospital with sepsis/septic shock in this patient with fever elevated white count tachycardia elevated lactic acid hypotension requiring pressor support now with evidence of gram-negative bacteremia source is likely liver abscess or tumor necrosis in this patient who did have a recent biopsy and will need to cover for the resistant gram-negative 2-blood cultures repeat has been negative so far 3-patient source of bacteremia is likely liver abscess and will benefit from IR drainage of this abscess to decrease the burden of infection 4-patient to continue with Zosyn 3.375 g every 8 hours and monitor clinical course closely Time with Patient: Less than 30
[2023-01-29] MEDS: PIPERACILLIN-TAZOBACTAM 3.375 GM in SODIUM CHLORIDE 0.9% 100 ML IVPB SCH ×3 (03:40→20:07)
[2023-01-29 05:22] LABS: Appearance,BF Clear
[2023-01-29] MEDS: HYDROmorphone 1 MG/ML 1 ML SYRINGE IVP PRN ×3 (05:55→16:14)
[2023-01-29] MEDS: NOREPINEPHRINE 4 MG in SODIUM CHLORIDE 0.9% 250 ML IV SCH (08:31)
[2023-01-29] MEDS: HEPARIN SODIUM,PORCINE/PF 5,000 UNIT/0.5 ML SYRINGE SQ SCH ×2 (08:38→20:07)
[2023-01-29] MEDS: PANTOPRAZOLE 40 MG/10 ML VIAL IV SCH (08:38)
--- NOTE | 2023-01-29 09:47 | P.PN ---
Subjective Progress Note Date: 01/29/23 Principal diagnosis: Abdominal pain Patient having mild abdominal discomfort. Vital signs are stable. Tolerating diet. Objective - Vital Signs Vital signs: Vital Signs Temp 98.1 F 01/29/23 08:00 Pulse 91 01/29/23 08:00 Resp 18 01/29/23 08:00 BP 107/60 01/29/23 08:00 Pulse Ox 96 01/29/23 08:00 FiO2 Intake & Output 01/28/23 01/29/23 01/29/23 18:59 06:59 18:59 Intake Total 250 598 Output Total 370 300 Balance -120 -300 598 Intake: Oral 250 598 Output: Urine 370 300 Other: Voiding Method Indwelling Catheter Indwelling Catheter Indwelling Catheter - Exam Abdomen: Soft, distended, mild tenderness - Labs CBC & Chem 7: 01/28/23 05:28 01/28/23 05:28 Labs: Microbiology - Last 24 Hours (Table) 01/28/23 14:50 Gram Stain - Preliminary Ascites Fluid Body Fluid Culture - Preliminary 01/27/23 05:31 Blood Culture - Preliminary Blood No Growth after 48 hours 01/28/23 14:50 Anaerobic Culture - Preliminary Ascites Fluid 01/25/23 15:45 Blood Culture Gram Stain - Preliminary Blood Blood Culture - Preliminary Escherichia coli Klebsiella pneumoniae Alpha Hemolytic Streptococcus Assessment and Plan (1) 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 Most likely etiology per pathology is kidney source. Continue oncologic workup. Continue diet. Current Visit: Yes Status: Acute Code(s): C78.7 - SECONDARY MALIG NEOPLASM OF LIVER AND INTRAHEPATIC BILE DUCT; C64.9 - MALIGNANT NEOPLASM OF UNSP KIDNEY, EXCEPT RENAL PELVIS SNOMED Code(s): 50651795
[2023-01-29] MEDS: SODIUM CHLORIDE 0.9% 1,000 ML IV SCH (12:07)
--- NOTE | 2023-01-29 13:09 | P.PN ---
Progress Note - Text Progress Note Date: 01/29/23 Subjective: No new events, patient does complain of intermittent abdominal pain REVIEW OF SYSTEMS: CONSTITUTIONAL: No fever, no malaise, no fatigue. HEENT: No recent visual problems or hearing problems. Denied any sore throat. CARDIOVASCULAR: No chest pain, orthopnea, PND, no palpitations, no syncope. PULMONARY: No shortness of breath, no cough, no hemoptysis. GASTROINTESTINAL: No diarrhea, no nausea, no vomiting, no abdominal pain. NEUROLOGICAL: No headaches, no weakness, no numbness. HEMATOLOGICAL: Denies any bleeding or petechiae. GENITOURINARY: Denies any burning micturition, frequency, or urgency. MUSCULOSKELETAL/RHEUMATOLOGICAL: Denies any joint pain, swelling, or any muscle pain. ENDOCRINE: Denies any polyuria or polydipsia. The rest of the 14-point review of systems is negative. PHYSICAL EXAMINATION: GENERAL: The patient is alert and oriented x3, ill-appearing pale appearance, icteric HEENT: Pupils are round and equally reacting to light. EOMI. No scleral icterus. No conjunctival pallor. Normocephalic, atraumatic. No pharyngeal erythema. No thyromegaly. CARDIOVASCULAR: S1 and S2 present. No murmurs, rubs, or gallops. PULMONARY: Chest is clear to auscultation, no wheezing or crackles. ABDOMEN: Soft, nontender, distended, nontender on palpation MUSCULOSKELETAL: No joint swelling or deformity. EXTREMITIES: No cyanosis, clubbing, or pedal edema. NEUROLOGICAL: Gross neurological examination did not reveal any focal deficits. SKIN: No rashes. Assessment and plan * Sepsis with liver abscess status post liver biopsy * Bacteremia secondary to E. coli, Klebsiella pneumonia, alpha hemolytic strep * Metastatic renal cell carcinoma to liver * Transaminitis secondary to liver * Acute renal failure * History of renal cell carcinoma status post nephrectomy * Abdominal ascites In regards to sepsis, blood cultures collected for polymicrobial infection, infectious disease following. Continue patient on IV antibiotics patient receiving IV Zosyn and date of antibiotic per infectious disease In regard to metastatic renal cell carcinoma status post pathology report showing renal cell carcinoma as primary etiology. Oncology followed Continued follow-up liver profile and improved Status post-paracentesis on 01/28 Prognosis remained guarded
--- NOTE | 2023-01-29 13:41 | P.PN ---
Subjective Progress Note Date: 01/29/23 Principal diagnosis: Sepsis/septic shock, necrotic liver tumor, possible abscess. I'm seeing this patient in new consultation today 01/26/2023 in the emergency room for ICU management. This is a pleasant 72-year-old white male with past medical history of of a suspicious liver mass, previous right nephrectomy related to renal cell carcinoma, COPD, hypertension, cholecystectomy, appendectomy, previous skin cancer, ex-smoker. A CT of the chest, abdomen and pelvis with contrast on 12/29/2022 showed a large heterogenous mass involving the posterior aspect of the right lobe of the liver that measures at least 9.2 x 8.1 cm in diameter. 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 Patient recently had a CT-guided biopsy of the liver on 01/20/2023, and pathology results are pending. Patient has also had diagnostic paracentesis. A bone scan showed no evidence of osseous metastasis. Patient presented to the ER yesterday afternoon with chief complaint of nonlocalized abdominal pain, nausea, vomiting, and. Patient presented with a friend who states that he seems more confused than normal. Patient is currently sitting up in bed, on room air, in no acute distress. Chest x-ray showed no acute cardiopulmonary process. Abdomen is soft but painful to palpation.. Patient denies any matting hematemesis or bloody bowel movements. Patient does appear slightly jaundiced. Urine is orange. An abdominal CT without contrast on admission showed an interval development of suspected intrahepatic abscess. Findings which likely represent necrosis of prior mass with superimposed infection. The remainder of the mass was suboptimally evaluated given lack of IV contrast. There was also a redemonstration of the pneumobilia initially seen on previous exam, trace ascites and splenomegaly. Patient is hypotensive after a total of 2 L normal saline fluid resuscitation. For this reason, patient will be transferred to the intensive care unit for vasopressor support. Patient also has a suspicious urinalysis with leukocyte esterase and moderate bacteria. Patient's lactic acid level was originally 6.3 and is down to 4.2 after fluid resuscitation. Patient is empirically covered on Unasyn. CBC on arrival shows leukocytosis with a WBC count of 19.2, hemoglobin 10.1, hematocrit 31.8, platelets 318,000. PT/INR was 12 and 1.2. BMP shows a sodium 138, potassium 5.3, chloride 104, serum CO2 16, BUN 46, creatinine 2.02, glucose 137. Normal saline is infusing at 130 mL per hour. LFTs are elevated and his AST is 397, a 92, alkaline phosphatase 624. Ammonia 55. Patient's condition is critical, and he will be transferred to the intensive care unit. Patient was reevaluated today on 01/27/2023, remains in the ICU, patient is hemodynamically stable. Off norepinephrine, IV fluid 0.9 normal saline at 100 mL per hour. His blood cultures came back positive for E. coli and Klebsiella pneumonia as well as alphahemolytic streptococcus. Patient has been all along on antibiotics, presently on Zosyn. And that correlates with his initial presentation of possible liver abscess and sepsis/septic shock. Nonetheless the patient is looking much improved. And looks hemodynamically stable. Based on the surgical input, no need for surgery, patient is now receiving antibiotics and I would suggest that we continue medical treatment if surgery is to be considered down the line patient related to be transferred to a tertiary care center. CBC today is normal that was abnormal renal profile showed a BUN of 50 creatinine 1.66, improving to his baseline creatinine on admission of 2.0 Reevaluated today on 01/28/2023 patient remains in the ICU, actually he is doing better than expected he is on 4 L nasal cannula IV fluid is 0.9 normal saline at 100 mL per hour hemodynamically stable, remains on antibiotics for his sepsis and septic shock from liver abscess. Surgery is recommending referral to a tertiary care center for a hepatobiliary surgeon however oncology believes that the patient has poor prognosis and we'll recommend mostly palliative care. In the meantime continue antibiotics empirically and could potentially transfer out of the ICU the patient remains hemodynamically stable today. May need long course of IV antibiotics via a PICC line that could be arranged for next week. WBC is 9.4 hemoglobin 9.3 left first of normal renal profile showed a BUN of 44 creatinine 1.51 Reevaluated today on 01/29/2023, patient is basically about the same, no major private branch exchange installer the last 24 hours. He is on 2 L nasal cannula and his O2 sat is 97%, denies any shortness of breath, denies nausea or vomiting, he does have some vague abdominal discomfort. CBC is relatively normal basic metabolic profile is normal BUN is 44 creatinine 1.51 liver enzymes remain abnormal as expected. Patient had a paracentesis yesterday, and about 1500 mL of fluid was drained from his tibial cavity. Objective - Vital Signs Vital signs: Vital Signs Temp 98 F 01/29/23 12:00 Pulse 90 01/29/23 12:00 Resp 18 01/29/23 12:00 BP 104/64 01/29/23 12:00 Pulse Ox 97 01/29/23 12:00 FiO2 Intake & Output 01/28/23 01/29/23 01/29/23 18:59 06:59 18:59 Intake Total 250 598 Output Total 370 300 Balance -120 -300 598 Intake: Oral 250 598 Output: Urine 370 300 Other: Voiding Method Indwelling Catheter Indwelling Catheter Indwelling Catheter - Exam Physical Exam revealed a 72-year-old white male in no distress. Patient is on 2 lit O2 sat is 94%. Head: Atraumatic, normocephalic. HEENT:[Neck is supple.] [No neck masses.] [No thyromegaly.] [No JVD.] Chest: [Clear throughout, no crackles, no rhonchi, no wheezes.] Cardiac Exam: [Normal S1 and S2, no S3 gallop, no murmur.] Abdomen: [Soft, nontender, no megaly, no rebound, no guarding, normal bowel sounds. Small ascites noted.] Extremities: [No clubbing, no edema, no cyanosis.] Neurological Exam: [No focal neurologic deficit.] Alert and oriented 3. Psychiatric: Normal mood, affect and normal mental status examination. Skin: No rashes - Labs CBC & Chem 7: 01/28/23 05:28 01/28/23 05:28 Labs: Microbiology - Last 24 Hours (Table) 01/28/23 14:50 Gram Stain - Preliminary Ascites Fluid Body Fluid Culture - Preliminary 01/27/23 05:31 Blood Culture - Preliminary Blood No Growth after 48 hours 01/28/23 14:50 Anaerobic Culture - Preliminary Ascites Fluid 01/25/23 15:45 Blood Culture Gram Stain - Preliminary Blood Blood Culture - Preliminary Escherichia coli Klebsiella pneumoniae Alpha Hemolytic Streptococcus Assessment and Plan Assessment: Impression: Sepsis related to suspected liver abscess. Or most likely the patient has a necrotic tumor involving the liver. Bacteremia secondary to E. coli, Klebsiella pneumonia, and alpha hemolytic strep, most likely source is his liver abscess. High anion gap metabolic acidosis secondary to lactic acidosis, improving. Known liver mass suspicious for metastasis. Suspect mild to moderate ascites. Elevated LFTs and ammonia secondary to above. Acute kidney injury, improving. Background COPD which is stable at the moment, on room air History of previous right nephrectomy related to renal cell carcinoma History of cholecystectomy History of appendectomy History of previous skin cancer Ex-smoker Plan: Paracentesis has been performed and 1500 mL of fluid drained Continue antibiotics Continue supportive care measures Continue IV fluids Interventional radiology is not recommending any drainage of the necrotic tumor area/abscess of the liver Oncology is recommending palliative care and I think that is appropriate con sidering his liver metastases. Protonix for GI prophylaxis Continue DVT prophylaxis We'll continue to follow Time with Patient: Less than 30
--- NOTE | 2023-01-29 15:00 | P.PN ---
Subjective Progress Note Date: 01/29/23 Principal diagnosis: Possible liver abscess and bacteremia Patient is a 72 year old male with a past medical history significant for right nephrectomy secondary to renal cell carcinoma COPD previous lung cancer ex-smoker with recent diagnosis of liver mass that has been biopsied on 01/20/2023 , bone scan that was negative for any bony metastasis patient presenting to the ER for evaluation of generalized not feeling well mental status changes , patient noticed to be hypotensive requiring admission to the ICU did have a CT suspicious for possible liver abscess did have gram-negative bacteremia On today's evaluation that is 01/29/2023, the patient continues to be afebrile, the patient is breathing comfortably currently on 2 L nasal cannula oxygen, the patient denies any chest pain or shortness of breath , denies any worsening abdominal pain did have paracentesis yesterday and less abdominal distention no diarrhea Objective - Vital Signs Vital signs: Vital Signs Temp 98 F 01/29/23 12:00 Pulse 90 01/29/23 12:00 Resp 18 01/29/23 12:00 BP 104/64 01/29/23 12:00 Pulse Ox 97 01/29/23 12:00 FiO2 Intake & Output 01/28/23 01/29/23 01/29/23 18:59 06:59 18:59 Intake Total 250 598 Output Total 370 300 Balance -120 -300 598 Intake: Oral 250 598 Output: Urine 370 300 Other: Voiding Method Indwelling Catheter Indwelling Catheter Indwelling Catheter - Exam GENERAL DESCRIPTION: An elderly male lying in bed in no distress RESPIRATORY SYSTEM: Unlabored breathing , decreased breath sounds at bases HEART: S1 S2 regular rate and rhythm , ABDOMEN: Soft , mild right upper quadrant tenderness EXTREMITIES: No edema feet - Labs CBC & Chem 7: 01/28/23 05:28 01/28/23 05:28 Labs: Microbiology - Last 24 Hours (Table) 01/28/23 14:50 Gram Stain - Preliminary Ascites Fluid Body Fluid Culture - Preliminary 01/27/23 05:31 Blood Culture - Preliminary Blood No Growth after 48 hours 01/28/23 14:50 Anaerobic Culture - Preliminary Ascites Fluid 01/25/23 15:45 Blood Culture Gram Stain - Preliminary Blood Blood Culture - Preliminary Escherichia coli Klebsiella pneumoniae Alpha Hemolytic Streptococcus Assessment and Plan (1) Gram-negative bacteremia Current Visit: Yes Status: Acute Code(s): R78.81 - BACTEREMIA SNOMED Code(s): 045594154862 (2) Hepatic abscess Current Visit: Yes Status: Acute Priority: High Code(s): K75.0 - ABSCESS OF LIVER SNOMED Code(s): 07006003 Plan: 1-Patient presented to hospital with sepsis/septic shock in this patient with fever elevated white count tachycardia elevated lactic acid hypotension requiring pressor support now with evidence of gram-negative bacteremia source is likely liver abscess or tumor necrosis in this patient who did have a recent biopsy and will need to cover for the resistant gram-negative 2-blood cultures repeat has been negative so far 3-patient source of bacteremia is likely liver abscess and will benefit from IR drainage of this abscess to decrease the burden of infection, patient however has been his bacteremia with a blood culture drawn on 01/27/2023 has been negative so far 4-patient to continue with Zosyn 3.375 g every 8 hours and monitor clinical course closely Time with Patient: Less than 30
[2023-01-30] MEDS: HYDROmorphone 1 MG/ML 1 ML SYRINGE IVP PRN ×3 (02:09→17:15)
[2023-01-30] MEDS: PIPERACILLIN-TAZOBACTAM 3.375 GM in SODIUM CHLORIDE 0.9% 100 ML IVPB SCH ×3 (03:09→19:58)
[2023-01-30 08:20] LABS: HCT 26.8 % (39.0-53.0); HGB 8.4 gm/dL (13.0-17.5); Hypochromasia Marked; MCH 29.6 pg (25.0-35.0); MCHC 31.5 g/dL (31.0-37.0); Mean Platelet Volume 9.6; Platelet Count 223 k/uL (150-450); RBC 2.85 m/uL (4.30-5.90); RDW 15.7 % (11.5-15.5)
[2023-01-30] MEDS: PANTOPRAZOLE 40 MG/10 ML VIAL IV SCH (08:48)
[2023-01-30] MEDS: SODIUM CHLORIDE 0.9% 1,000 ML IV SCH (08:48)
[2023-01-30] MEDS: HEPARIN SODIUM,PORCINE/PF 5,000 UNIT/0.5 ML SYRINGE SQ SCH ×2 (08:49→19:58)
[2023-01-30 09:21] LABS: Albumin 2.1 g/dL (3.5-5.0); Potassium 4.3 mmol/L (3.5-5.1); Total Protein 6.2 g/dL (6.3-8.2)
--- NOTE | 2023-01-30 09:58 | P.PN ---
Subjective Progress Note Date: 01/30/23 Principal diagnosis: Abdominal pain Patient without new complaints. Sitting up in the chair. Mild abdominal discomfort. No nausea or vomiting. Objective - Vital Signs Vital signs: Vital Signs Temp 97.9 F 01/30/23 03:18 Pulse 91 01/30/23 03:18 Resp 16 01/30/23 03:18 BP 96/52 01/30/23 03:18 Pulse Ox 94 L 01/30/23 08:21 FiO2 Intake & Output 01/29/23 01/30/23 01/30/23 18:59 06:59 18:59 Intake Total 838 120 Output Total 300 100 Balance 838 -300 20 Intake: Oral 838 120 Output: Urine 300 100 Other: Voiding Method Indwelling Catheter Indwelling Catheter - Exam Abdomen: Soft, distended, mild diffuse tenderness - Labs CBC & Chem 7: 01/30/23 08:02 01/30/23 08:02 Labs: Abnormal Lab Results - Last 24 Hours (Table) 01/30/23 01/30/23 Range/Units 08:02 08:02 RBC 2.85 L (4.30-5.90) m/uL Hgb 8.4 L (13.0-17.5) gm/dL Hct 26.8 L (39.0-53.0) % RDW 15.7 H (11.5-15.5) % Chloride 113 H (98-107) mmol/L Carbon Dioxide 16 L (22-30) mmol/L BUN 31 H (9-20) mg/dL Creatinine 1.65 H (0.66-1.25) mg/dL Glucose 104 H (74-99) mg/dL Calcium 8.0 L (8.4-10.2) mg/dL Total Bilirubin 2.0 H (0.2-1.3) mg/dL AST 100 H (17-59) U/L Alkaline Phosphatase 961 H (38-126) U/L Total Protein 6.2 L (6.3-8.2) g/dL Albumin 2.1 L (3.5-5.0) g/dL Microbiology - Last 24 Hours (Table) 01/27/23 05:31 Blood Culture - Preliminary Blood No Growth after 72 hours 01/25/23 16:00 Blood Culture Gram Stain - Final Blood Blood Culture - Final Escherichia coli Klebsiella pneumoniae Alpha Hemolytic Streptococcus 01/25/23 15:45 Blood Culture Gram Stain - Final Blood Blood Culture - Final Escherichia coli Klebsiella pneumoniae Klebsiella pneumoniae#2 Alpha Hemolytic Streptococcus 01/28/23 14:50 Gram Stain - Preliminary Ascites Fluid Body Fluid Culture - Preliminary Assessment and Plan (1) 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 Patient becoming more symptomatic with recurrent ascites. Continue oncologic workup. Current Visit: Yes Status: Acute Code(s): C78.7 - SECONDARY MALIG NEOPLASM OF LIVER AND INTRAHEPATIC BILE DUCT; C64.9 - MALIGNANT NEOPLASM OF UNSP KIDNEY, EXCEPT RENAL PELVIS SNOMED Code(s): 34823153
--- NOTE | 2023-01-30 11:48 | P.PN ---
Subjective Progress Note Date: 01/30/23 I'm seeing this patient in new consultation today 01/26/2023 in the emergency room for ICU management. This is a pleasant 72-year-old white male with past medical history of of a suspicious liver mass, previous right nephrectomy related to renal cell carcinoma, COPD, hypertension, cholecystectomy, append ectomy, previous skin cancer, ex-smoker. A CT of the chest, abdomen and pelvis with contrast on 12/29/2022 showed a large heterogenous mass involving the posterior aspect of the right lobe of the liver that measures at least 9.2 x 8.1 cm in diameter. 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 Patient recently had a CT-guided biopsy of the liver on 01/20/2023, and pathology results are pending. Patient has also had diagnostic paracentesis. A bone scan showed no evidence of osseous metastasis. Patient presented to the ER yesterday afternoon with chief complaint of nonlocalized abdominal pain, nausea, vomiting, and. Patient presented with a friend who states that he seems more confused than normal. Patient is currently sitting up in bed, on room air, in no acute distress. Chest x-ray showed no acute cardiopulmonary process. Abdomen is soft but painful to palpation.. Patient denies any matting hematemesis or bloody bowel movements. Patient does appear slightly jaundiced. Urine is orange. An abdominal CT without contrast on admission showed an interval development of suspected intrahepatic abscess. Findings which likely represent necrosis of prior mass with superimposed infection. The remainder of the mass was suboptimally evaluated given lack of IV contrast. There was also a redemonstration of the pneumobilia initially seen on previous exam, trace ascites and splenomegaly. Patient is hypotensive after a total of 2 L normal saline fluid resuscitation. For this reason, patient will be transferred to the intensive care unit for vasopressor support. Patient also has a suspicious urinalysis with leukocyte esterase and moderate bacteria. Patient's lactic acid level was originally 6.3 and is down to 4.2 after fluid resuscitation. Patient is empirically covered on Unasyn. CBC on arrival shows leukocytosis with a WBC count of 19.2, hemoglobin 10.1, hematocrit 31.8, platelets 318,000. PT/INR was 12 and 1.2. BMP shows a sodium 138, potassium 5.3, chloride 104, serum CO2 16, BUN 46, creatinine 2.02, glucose 137. Normal saline is infusing at 130 mL per hour. LFTs are elevated and his AST is 397, a 92, alkaline phosphatase 624. Ammonia 55. Patient's condition is critical, and he will be transferred to the intensive care unit. Patient was reevaluated today on 01/27/2023, remains in the ICU, patient is hemodynamically stable. Off norepinephrine, IV fluid 0.9 normal saline at 100 mL per hour. His blood cultures came back positive for E. coli and Klebsiella pneumonia as well as alphahemolytic streptococcus. Patient has been all along on antibiotics, presently on Zosyn. And that correlates with his initial presentation of possible liver abscess and sepsis/septic shock. Nonetheless the patient is looking much improved. And looks hemodynamically stable. Based on the surgical input, no need for surgery, patient is now receiving antibiotics and I would suggest that we continue medical treatment if surgery is to be considered down the line patient related to be transferred to a tertiary care center. CBC today is normal that was abnormal renal profile showed a BUN of 50 creatinine 1.66, improving to his baseline creatinine on admission of 2.0 Reevaluated today on 01/28/2023 patient remains in the ICU, actually he is doing better than expected he is on 4 L nasal cannula IV fluid is 0.9 normal saline at 100 mL per hour hemodynamically stable, remains on antibiotics for his sepsis and septic shock from liver abscess. Surgery is recommending referral to a tertiary care center for a hepatobiliary surgeon however oncology believes that the patient has poor prognosis and we'll recommend mostly palliative care. In the meantime continue antibiotics empirically and could potentially transfer out of the ICU the patient remains hemodynamically stable today. May need long course of IV antibiotics via a PICC line that could be arranged for next week. WBC is 9.4 hemoglobin 9.3 left first of normal renal profile showed a BUN of 44 creatinine 1.51 Reevaluated today on 01/29/2023, patient is basically about the same, no major tire changer aircraft the last 24 hours. He is on 2 L nasal cannula and his O2 sat is 97%, denies any shortness of breath, denies nausea or vomiting, he does have some vague abdominal discomfort. CBC is relatively normal basic metabolic profile is normal BUN is 44 creatinine 1.51 liver enzymes remain abnormal as expected. Patient had a paracentesis yesterday, and about 1500 mL of fluid was drained from his tibial cavity. The patient is seen today 01/30/2023 in follow-up on the regular medical floor. He is sitting up in a chair at the bedside. Awake and alert in no acute dist ress. Denies any worsening shortness of breath, cough or congestion. Maintaining good O2 saturations in the mid 90s on room air. Afebrile. Hemodynamically stable. Follow-up blood cultures revealing no growth. Ascites fluid cultures pending. White count 10.0. Hemoglobin 8.4. Platelets 223. Sodium 138. Potassium 4.3. Bicarb 16. BUN 31. Creatinine 1.65. Glucose 104. AST 100. ALT 38. Alk phos 961. He remains on antibiotics in the form of Zosyn. Normal saline at 50 MLS per hour. Heparin for DVT prophylaxis. Objective - Vital Signs Vital signs: Vital Signs Temp 98.1 F 01/30/23 08:00 Pulse 94 01/30/23 08:00 Resp 16 01/30/23 08:00 BP 103/62 01/30/23 08:00 Pulse Ox 94 L 01/30/23 08:21 FiO2 Intake & Output 01/29/23 01/30/23 01/30/23 18:59 06:59 18:59 Intake Total 838 120 Output Total 300 100 Balance 838 -300 20 Intake: Oral 838 120 Output: Urine 300 100 Other: Voiding Method Indwelling Catheter Indwelling Catheter Indwelling Catheter - Exam GENERAL EXAM: Alert, very pleasant 72-year-old male, up in a chair, on room air, fairly comfortable in no apparent distress. HEAD: Normocephalic. EYES: Normal reaction of pupils, equal size. NOSE: Clear with pink turbinates. THROAT: No erythema or exudates. NECK: No masses, no JVD. CHEST: No chest wall deformity. LUNGS: Equal air entry with no crackles, wheeze, rhonchi or dullness. CVS: S1 and S2 normal with no audible murmur, regular rhythm. ABDOMEN: Slightly distended abdomen, normal bowel sounds, no guarding or rigidity. SPINE: No scoliosis or deformity SKIN: No rashes CENTRAL NERVOUS SYSTEM: No focal deficits, tone is normal in all 4 extremities. EXTREMITIES: There is no peripheral edema. No clubbing, no cyanosis. Peripheral pulses are intact. - Labs CBC & Chem 7: 01/30/23 08:02 01/30/23 08:02 Labs: Abnormal Lab Results - Last 24 Hours (Table) 01/30/23 01/30/23 Range/Units 08:02 08:02 RBC 2.85 L (4.30-5.90) m/uL Hgb 8.4 L (13.0-17.5) gm/dL Hct 26.8 L (39.0-53.0) % RDW 15.7 H (11.5-15.5) % Chloride 113 H (98-107) mmol/L Carbon Dioxide 16 L (22-30) mmol/L BUN 31 H (9-20) mg/dL Creatinine 1.65 H (0.66-1.25) mg/dL Glucose 104 H (74-99) mg/dL Calcium 8.0 L (8.4-10.2) mg/dL Total Bilirubin 2.0 H (0.2-1.3) mg/dL AST 100 H (17-59) U/L Alkaline Phosphatase 961 H (38-126) U/L Total Protein 6.2 L (6.3-8.2) g/dL Albumin 2.1 L (3.5-5.0) g/dL Microbiology - Last 24 Hours (Table) 01/28/23 14:50 Gram Stain - Preliminary Ascites Fluid Body Fluid Culture - Preliminary 01/27/23 05:31 Blood Culture - Preliminary Blood No Growth after 72 hours 01/25/23 16:00 Blood Culture Gram Stain - Final Blood Blood Culture - Final Escherichia coli Klebsiella pneumoniae Alpha Hemolytic Streptococcus 01/25/23 15:45 Blood Culture Gram Stain - Final Blood Blood Culture - Final Escherichia coli Klebsiella pneumoniae Klebsiella pneumoniae#2 Alpha Hemolytic Streptococcus Assessment and Plan Assessment: Sepsis related to suspected liver abscess. Or most likely the patient has a necrotic tumor involving the liver. Bacteremia secondary to E. coli, Klebsiella pneumonia, and alpha hemolytic strep, most likely source is his liver abscess. High anion gap metabolic acidosis secondary to lactic acidosis, improving. Known liver mass suspicious for metastasis. Suspect mild to moderate ascites. Elevated LFTs and ammonia secondary to above. Acute kidney injury, improving. Background COPD which is stable at the moment, on room air History of previous right nephrectomy related to renal cell carcinoma History of cholecystectomy History of appendectomy History of previous skin cancer Ex-smoker Plan: The patient was seen and evaluated Stable and on room air Cleared for discharge from the pulmonary standpoint Oncology has recommended palliative senior care once cleared by medicine I have personally seen and examined the patient, performed the documentation and the assessment and plan as written. Number of minutes spent on the visit: 10.
[2023-01-30] MEDS: NOREPINEPHRINE 4 MG in SODIUM CHLORIDE 0.9% 250 ML IV SCH (12:55)
--- NOTE | 2023-01-30 14:10 | P.PN ---
Progress Note - Text Progress Note Date: 01/30/23 Subjective: Patient seen and evaluated bedside, at this time continue with current management receiving IV antibiotic. Sister updated on 01/29 Goals of care discussed Prognosis guarded REVIEW OF SYSTEMS: CONSTITUTIONAL: No fever, no malaise, no fatigue. HEENT: No recent visual problems or hearing problems. Denied any sore throat. CARDIOVASCULAR: No chest pain, orthopnea, PND, no palpitations, no syncope. PULMONARY: No shortness of breath, no cough, no hemoptysis. GASTROINTESTINAL: No diarrhea, no nausea, no vomiting, no abdominal pain. NEUROLOGICAL: No headaches, no weakness, no numbness. HEMATOLOGICAL: Denies any bleeding or petechiae. GENITOURINARY: Denies any burning micturition, frequency, or urgency. MUSCULOSKELETAL/RHEUMATOLOGICAL: Denies any joint pain, swelling, or any muscle pain. ENDOCRINE: Denies any polyuria or polydipsia. PHYSICAL EXAMINATION: GENERAL: The patient is alert and oriented x3, ill-appearing pale appearance, icteric HEENT: Pupils are round and equally reacting to light. EOMI. No scleral icterus. No conjunctival pallor. Normocephalic, atraumatic. No pharyngeal erythema. No thyromegaly. CARDIOVASCULAR: S1 and S2 present. No murmurs, rubs, or gallops. PULMONARY: Chest is clear to auscultation, no wheezing or crackles. ABDOMEN: Soft, nontender, distended, nontender on palpation MUSCULOSKELETAL: No joint swelling or deformity. EXTREMITIES: No cyanosis, clubbing, or pedal edema. NEUROLOGICAL: Gross neurological examination did not reveal any focal deficits. SKIN: No rashes. Assessment and plan * Sepsis with liver abscess status post liver biopsy * Bacteremia secondary to E. coli, Klebsiella pneumonia, alpha hemolytic strep * Metastatic renal cell carcinoma to liver * Transaminitis secondary to liver * Acute renal failure * History of renal cell carcinoma status post nephrectomy * Abdominal ascites * In regards to sepsis, blood cultures collected for polymicrobial infection, infectious disease following. Continue patient on IV antibiotics patient receiving IV Zosyn and date of antibiotic per infectious disease * In regard to metastatic renal cell carcinoma status post pathology report showing renal cell carcinoma as primary etiology. Oncology followed * Continued follow-up liver profile and improved * Status post-paracentesis on 01/28/23 1500 mL of fluid removed * Prognosis remained guarded * Goals of care discussed with patient and sister are answered questions regarding potential transfer to tertiary center at this time patient remains hemodynamically stable however prognosis remains guarded which was explained to sister that patient might qualify for hospice if oncology feels he is not a candidate for treatment
--- NOTE | 2023-01-30 16:57 | P.PN ---
Subjective Progress Note Date: 01/30/23 Principal diagnosis: Possible liver abscess and bacteremia Patient is a 72 year old male with a past medical history significant for right nephrectomy secondary to renal cell carcinoma COPD previous lung cancer ex-smoker with recent diagnosis of liver mass that has been biopsied on 01/20/2023 , bone scan that was negative for any bony metastasis patient presenting to the ER for evaluation of generalized not feeling well mental status changes , patient noticed to be hypotensive requiring admission to the ICU did have a CT suspicious for possible liver abscess did have gram-negative bacteremia On today's evaluation that is 01/30/2023, the patient remains to be afebrile, the patient is breathing comfortably currently on 2 L nasal cannula oxygen, the patient denies any chest pain or shortness of breath , patient complaining of mostly abdominal distention and pain/upper quadrant area no nausea no vomiting or diarrhea Objective - Vital Signs Vital signs: Vital Signs Temp 98.1 F 01/30/23 08:00 Pulse 89 01/30/23 12:00 Resp 16 01/30/23 08:00 BP 115/68 01/30/23 12:00 Pulse Ox 95 01/30/23 12:00 FiO2 Intake & Output 01/29/23 01/30/23 01/30/23 18:59 06:59 18:59 Intake Total 838 240 Output Total 300 450 Balance 838 -300 -210 Intake: Oral 838 240 Output: Urine 300 450 Other: Voiding Method Indwelling Catheter Indwelling Catheter Indwelling Catheter - Exam GENERAL DESCRIPTION: An elderly male lying in bed in no distress RESPIRATORY SYSTEM: Unlabored breathing , decreased breath sounds at bases HEART: S1 S2 regular rate and rhythm , ABDOMEN: Soft , mild right upper quadrant tenderness EXTREMITIES: No edema feet - Labs CBC & Chem 7: 01/30/23 08:02 01/30/23 08:02 Labs: Abnormal Lab Results - Last 24 Hours (Table) 01/30/23 01/30/23 Range/Units 08:02 08:02 RBC 2.85 L (4.30-5.90) m/uL Hgb 8.4 L (13.0-17.5) gm/dL Hct 26.8 L (39.0-53.0) % RDW 15.7 H (11.5-15.5) % Chloride 113 H (98-107) mmol/L Carbon Dioxide 16 L (22-30) mmol/L BUN 31 H (9-20) mg/dL Creatinine 1.65 H (0.66-1.25) mg/dL Glucose 104 H (74-99) mg/dL Calcium 8.0 L (8.4-10.2) mg/dL Total Bilirubin 2.0 H (0.2-1.3) mg/dL AST 100 H (17-59) U/L Alkaline Phosphatase 961 H (38-126) U/L Total Protein 6.2 L (6.3-8.2) g/dL Albumin 2.1 L (3.5-5.0) g/dL Microbiology - Last 24 Hours (Table) 01/28/23 14:50 Gram Stain - Preliminary Ascites Fluid Body Fluid Culture - Preliminary 01/27/23 05:31 Blood Culture - Preliminary Blood No Growth after 72 hours 01/25/23 16:00 Blood Culture Gram Stain - Final Blood Blood Culture - Final Escherichia coli Klebsiella pneumoniae Alpha Hemolytic Streptococcus 01/25/23 15:45 Blood Culture Gram Stain - Final Blood Blood Culture - Final Escherichia coli Klebsiella pneumoniae Klebsiella pneumoniae#2 Alpha Hemolytic Streptococcus Assessment and Plan (1) Gram-negative bacteremia Current Visit: Yes Status: Acute Code(s): R78.81 - BACTEREMIA SNOMED Code(s): 408057937285 (2) Hepatic abscess Current Visit: Yes Status: Acute Priority: High Code(s): K75.0 - ABSCESS OF LIVER SNOMED Code(s): 17170763 Plan: 1-Patient presented to hospital with sepsis/septic shock in this patient with fever elevated white count tachycardia elevated lactic acid hypotension requiring pressor support now with evidence of gram-negative bacteremia source is likely liver abscess or tumor necrosis in this patient who did have a recent biopsy and will need to cover for the resistant gram-negative 2-blood cultures repeat has been negative so far 3-patient source of bacteremia is likely liver abscess and will benefit from IR drainage of this abscess to decrease the burden of infection, patient however has cleared his bacteremia with a blood culture drawn on 01/27/2023 has been negative, patient to continue with the [facility] family the bedside and multiple questions and concerns were answered Time with Patient: Less than 30
[2023-01-31] MEDS: HYDROmorphone 1 MG/ML 1 ML SYRINGE IVP PRN ×3 (03:09→15:47)
[2023-01-31] MEDS: PIPERACILLIN-TAZOBACTAM 3.375 GM in SODIUM CHLORIDE 0.9% 100 ML IVPB SCH ×3 (03:10→20:32)
[2023-01-31] MEDS: SODIUM CHLORIDE 0.9% 1,000 ML IV SCH (03:33)
[2023-01-31 06:55] LABS: HCT 26.2 % (39.0-53.0); Hypochromasia Moderate; MCH 28.5 pg (25.0-35.0); MCHC 30.5 g/dL (31.0-37.0); MCV 93.6 fL (80.0-100.0); Mean Platelet Volume 9.4; Platelet Count 228 k/uL (150-450); RBC 2.79 m/uL (4.30-5.90); RDW 15.8 % (11.5-15.5); WBC 10.2 k/uL (3.8-10.6)
[2023-01-31 07:21] LABS: Albumin 2.1 g/dL (3.5-5.0); Potassium 4.6 mmol/L (3.5-5.1); Total Bilirubin 1.9 mg/dL (0.2-1.3); Total Protein 6.1 g/dL (6.3-8.2)
[2023-01-31] MEDS: PANTOPRAZOLE 40 MG/10 ML VIAL IV SCH (08:32)
[2023-01-31] MEDS: HEPARIN SODIUM,PORCINE/PF 5,000 UNIT/0.5 ML SYRINGE SQ SCH ×2 (08:32→19:43)
--- NOTE | 2023-01-31 11:37 | P.PN ---
Subjective Progress Note Date: 01/31/23 Principal diagnosis: Sepsis. I'm seeing this patient in new consultation today 01/26/2023 in the emergency room for ICU management. This is a pleasant 72-year-old white male with past medical history of of a suspicious liver mass, previous right nephrectomy related to renal cell carcinoma, COPD, hypertension, cholecystectomy, appendectomy, previous skin cancer, ex-smoker. A CT of the chest, abdomen and pelvis with contrast on 12/29/2022 showed a large heterogenous mass involving the posterior aspect of the right lobe of the liver that measures at least 9.2 x 8.1 cm in diameter. 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 Patient recently had a CT-guided biopsy of the liver on 01/20/2023, and pathology results are pending. Patient has also had diagnostic paracentesis. A bone scan showed no evidence of osseous metastasis. Patient presented to the ER yesterday afternoon with chief complaint of nonlocalized abdominal pain, nausea, vomiting, and. Patient presented with a friend who states that he seems more confused than normal. Patient is currently sitting up in bed, on room air, in no acute distress. Chest x-ray showed no ac [place] cardiopulmonary process. Abdomen is soft but painful to palpation.. Patient denies any matting hematemesis or bloody bowel movements. Patient does appear slightly jaundiced. Urine is orange. An abdominal CT without contrast on admission showed an interval development of suspected intrahepatic abscess. Findings which likely represent necrosis of prior mass with superimposed infection. The remainder of the mass was suboptimally evaluated given lack of IV contrast. There was also a redemonstration of the pneumobilia initially seen on previous exam, trace ascites and splenomegaly. Patient is hypotensive after a total of 2 L normal saline fluid resuscitation. For this reason, patient will be transferred to the intensive care unit for vasopressor support. Patient also has a suspicious urinalysis with leukocyte esterase and moderate bacteria. Patient's lactic acid level was originally 6.3 and is down to 4.2 after fluid resuscitation. Patient is empirically covered on Unasyn. CBC on arrival shows leukocytosis with a WBC count of 19.2, hemoglobin 10.1, hematocrit 31.8, platele ts 318,000. PT/INR was 12 and 1.2. BMP shows a sodium 138, potassium 5.3, chloride 104, serum CO2 16, BUN 46, creatinine 2.02, glucose 137. Normal saline is infusing at 130 mL per hour. LFTs are elevated and his AST is 397, a 92, alkaline phosphatase 624. Ammonia 55. Patient's condition is critical, and he will be transferred to the intensive care unit. Patient was reevaluated today on 01/27/2023, remains in the ICU, patient is hemodynamically stable. Off norepinephrine, IV fluid 0.9 normal saline at 100 mL per hour. His blood cultures came back positive for E. coli and Klebsiella pneumonia as well as alphahemolytic streptococcus. Patient has been all along on antibiotics, presently on Zosyn. And that correlates with his initial presentation of possible liver abscess and sepsis/septic shock. Nonetheless the patient is looking much improved. And looks hemodynamically stable. Based on the surgical input, no need for surgery, patient is now receiving antibiotics and I would suggest that we continue medical treatment if surgery is to be considered down the line patient related to be transferred to a tertiary care center. CBC today is normal that was abnormal renal profile showed a BUN of 50 creatinine 1.66, improving to his baseline creatinine on admission of 2.0 Reevaluated today on 01/28/2023 patient remains in the ICU, actually he is doing better than expected he is on 4 L nasal cannula IV fluid is 0.9 normal saline at 100 mL per hour hemodynamically stable, remains on antibiotics for his sepsis and septic shock from liver abscess. Surgery is recommending referral to a tertiary care center for a hepatobiliary surgeon however oncology believes that the patient has poor prognosis and we'll recommend mostly palliative care. In the meantime continue antibiotics empirically and could potentially transfer out of the ICU the patient remains hemodynamically stable today. May need long course of IV antibiotics via a PICC line that could be arranged for next week. WBC is 9.4 hemoglobin 9.3 left first of normal renal profile showed a BUN of 44 creatinine 1.51 Reevaluated today on 01/29/2023, patient is basically about the same, no major change management consultant the last 24 hours. He is on 2 L nasal cannula and his O2 sat is 97%, denies any shortness of breath, denies nausea or vomiting, he does have some vague abdominal discomfort. CBC is relatively normal basic metabolic profile is normal BUN is 44 creatinine 1.51 liver enzymes remain abnormal as expected. Patient had a paracentesis yesterday, and about 1500 mL of fluid was drained from his tibial cavity. The patient is seen today 01/30/2023 in follow-up on the regular medical floor. He is sitting up in a chair at the bedside. Awake and alert in no acute distress. Denies any worsening shortness of breath, cough or congestion. Maintaining good O2 saturations in the mid 90s on room air. Afebrile. H emodynamically stable. Follow-up blood cultures revealing no growth. Ascites fluid cultures pending. White count 10.0. Hemoglobin 8.4. Platelets 223. Sodium 138. Potassium 4.3. Bicarb 16. BUN 31. Creatinine 1.65. Glucose 104. AST 100. ALT 38. Alk phos 961. He remains on antibiotics in the form of Zosyn. Normal saline at 50 MLS per hour. Heparin for DVT prophylaxis. Progress note dated 01/31/2023. The patient is seen today in room 381. The patient currently is on room air. He is getting saline IV at 60 mL an hour. He continues on Zosyn as an antibiotic. He is doing about the same today as he was yesterday. White count 10.2, hemoglobin 8, hematocrit 26.2, and platelet count 228,000. Sodium 139, potassium 4.6, chlorides 114, CO2 17, BUN 30, creatinine 1.56. Alkaline phosphatase is 1075. Albumin is 2.1. Blood cultures show evidence of Escherichia coli, 2 different species of Klebsiella pneumoniae, and alpha- hemolytic streptococci. Objective - Vital Signs Vital signs: Vital Signs Temp 98.0 F 01/31/23 11:02 Pulse 83 01/31/23 11:02 Resp 18 01/31/23 11:02 BP 106/59 01/31/23 11:02 Pulse Ox 94 L 01/31/23 11:02 FiO2 Intake & Output 01/30/23 01/31/23 01/31/23 18:59 06:59 18:59 Intake Total 360 150 118 Output Total 625 225 300 Balance -265 -75 -182 Intake: IV 150 Piperacillin-Tazobactam 3 100 .375 gm In Sodium Chloride 0.9% 100 ml @ 25 mls/hr IVPB Q8H [facility] Rx#: [id number] Sodium Chloride 0.9% 1, 50 000 ml @ 50 mls/hr IV . Q20H [facility] Rx#:[id number] Oral 360 118 Output: Urine 625 225 300 Other: Voiding Method Indwelling Catheter Indwelling Catheter Indwelling Catheter - Exam No acute distress, oriented 3. Currently on room air. HEENT examination is grossly unremarkable. Neck supple. Full range of motion. No adenopathy thyromegaly or neck vein distention. Cardiovascular examination reveals regular rhythm rate. S1-S2 normal. No S3 or S4. No discernible murmur noted. Heart rate 83 bpm. Lungs reveal clear breath sounds. Breath sounds are equal bilaterally. No adventitious lung sounds including wheezes rhonchi or crackles. Room air saturation is 94%. Abdomen is distended, and mildly tender. Extremities are intact. No cyanosis clubbing or edema. Skin is without rash or lesion. Neurologic examination is brief but nonfocal. - Labs CBC & Chem 7: 01/31/23 05:56 01/31/23 05:56 Labs: Abnormal Lab Results - Last 24 Hours (Table) 01/31/23 01/31/23 Range/Units 05:56 05:56 RBC 2.79 L (4.30-5.90) m/uL Hgb 8.0 L (13.0-17.5) gm/dL Hct 26.2 L (39.0-53.0) % MCHC 30.5 L (31.0-37.0) g/dL RDW 15.8 H (11.5-15.5) % Chloride 114 H (98-107) mmol/L Carbon Dioxide 17 L (22-30) mmol/L BUN 30 H (9-20) mg/dL Creatinine 1.56 H (0.66-1.25) mg/dL Calcium 8.0 L (8.4-10.2) mg/dL Total Bilirubin 1.9 H (0.2-1.3) mg/dL AST 100 H (17-59) U/L Alkaline Phosphatase 1075 H (38-126) U/L Total Protein 6.1 L (6.3-8.2) g/dL Albumin 2.1 L (3.5-5.0) g/dL Microbiology - Last 24 Hours (Table) 01/27/23 05:31 Blood Culture - Preliminary Blood No Growth after 96 hours 01/28/23 14:50 Anaerobic Culture - Preliminary Ascites Fluid 01/28/23 14:50 Gram Stain - Preliminary Ascites Fluid Body Fluid Culture - Preliminary Assessment and Plan Assessment: Sepsis related to suspected liver abscess, or most likely the patient has a necrotic tumor involving the liver. Bacteremia secondary to E. coli, Klebsiella pneumonia, and alpha-hemolytic strep, most likely source is his liver abscess. High anion gap metabolic acidosis secondary to lactic acidosis, improving. Known liver mass suspicious for metastasis. Suspect mild to moderate ascites. Elevated LFTs and ammonia secondary to above. Acute kidney injury, improving. Background COPD which is stable. History of previous right nephrectomy related to renal cell carcinoma. History of cholecystectomy. History of appendectomy. History of previous skin cancer. Ex-smoker. Plan: Plan dated 01/31/2023. The patient's doing well. He is currently on room air. The patient is receiving saline at 60 mL an hour. Apparently, a palliative care consult was initiated. The patient's currently also on Zosyn as an antibiotic. We will continue to follow and make recommendations along the way. Labs, x-rays, and medications are reviewed. Time with Patient: Less than 30
--- NOTE | 2023-01-31 14:22 | P.PN ---
Subjective Progress Note Date: 01/31/23 Principal diagnosis: Sepsis In follow-up today patient is out of intensive care, he is currently denying any pain, does have complaints of early satiety, abdominal distention is p rogressive, he is not certain of when his last bowel movement was. No recent vomiting. He is breathing comfortably at rest, no recent fevers. Objective - Vital Signs Vital signs: Vital Signs Temp 98.0 F 01/31/23 11:02 Pulse 83 01/31/23 13:13 Resp 18 01/31/23 11:02 BP 106/59 01/31/23 11:02 Pulse Ox 94 L 01/31/23 11:02 FiO2 Intake & Output 01/30/23 01/31/23 01/31/23 18:59 06:59 18:59 Intake Total 360 150 236 Output Total 625 225 300 Balance -265 -75 -64 Intake: IV 150 Piperacillin-Tazobactam 3 100 .375 gm In Sodium Chloride 0.9% 100 ml @ 25 mls/hr IVPB Q8H [facility] Rx#: [id number] Sodium Chloride 0.9% 1, 50 000 ml @ 50 mls/hr IV . Q20H [facility] Rx#:[id number] Oral 360 236 Output: Urine 625 225 300 Other: Voiding Method Indwelling Catheter Indwelling Catheter Indwelling Catheter - Constitutional General appearance: Present: cooperative, no acute distress, thin - EENT Eyes: Present: anicteric sclerae, EOMI ENT: Present: hard of hearing - Respiratory Respiratory: bilateral: diminished - Cardiovascular Rhythm: regular - Peripheral edema leg Peripheral Edema: bilateral: Trace - Gastrointestinal Gastrointestinal Comment(s): firm General gastrointestinal: Present: distended - Neurologic Neurologic: Present: CNII-XII intact (grossly) - Musculoskeletal Musculoskeletal: Present: generalized weakness - Psychiatric Psychiatric: Present: A&O x's 3, appropriate affect - Labs CBC & Chem 7: 01/31/23 05:56 01/31/23 05:56 Labs: Abnormal Lab Results - Last 24 Hours (Table) 01/31/23 01/31/23 Range/Units 05:56 05:56 RBC 2.79 L (4.30-5.90) m/uL Hgb 8.0 L (13.0-17.5) gm/dL Hct 26.2 L (39.0-53.0) % MCHC 30.5 L (31.0-37.0) g/dL RDW 15.8 H (11.5-15.5) % Chloride 114 H (98-107) mmol/L Carbon Dioxide 17 L (22-30) mmol/L BUN 30 H (9-20) mg/dL Creatinine 1.56 H (0.66-1.25) mg/dL Calcium 8.0 L (8.4-10.2) mg/dL Total Bilirubin 1.9 H (0.2-1.3) mg/dL AST 100 H (17-59) U/L Alkaline Phosphatase 1075 H (38-126) U/L Total Protein 6.1 L (6.3-8.2) g/dL Albumin 2.1 L (3.5-5.0) g/dL Microbiology - Last 24 Hours (Table) 01/27/23 05:31 Blood Culture - Preliminary Blood No Growth after 96 hours 01/28/23 14:50 Anaerobic Culture - Preliminary Ascites Fluid 01/28/23 14:50 Gram Stain - Preliminary Ascites Fluid Body Fluid Culture - Preliminary Assessment and Plan (1) Hepatic abscess Current Visit: Yes Status: Acute Priority: High Code(s): K75.0 - ABSCESS OF LIVER SNOMED Code(s): 32943006 (2) Renal cell adenocarcinoma Current Visit: Yes Status: Acute Priority: High Code(s): C64.9 - MALIGNANT NEOPLASM OF UNSP KIDNEY, EXCEPT RENAL PELVIS SNOMED Code(s): 928809091 Plan: Hepatic abscess -pt doing much better, out of ICU -Cont on abx -ID following Renal cell carcinoma -Patient is status post liver biopsy, path + RCC. -Staging PET will be sched outpt Ultrasound of the abdomen to assess for recurrent ascites. May need to consider abdominal x-ray as patient has not had a bowel movement in several days and his abdomen is pretty distended. PT consulted to evaluate and treat pt as he is getting weaker. Follow-up appointment with Dr. Dale in the discharge plan
[2023-01-31 14:42] VITALS: BMI 24.4
--- NOTE | 2023-01-31 15:46 | US ---
EXAMINATION TYPE: US abdomen limited DATE OF EXAM: 01/31/2023 COMPARISON: NONE CLINICAL HISTORY: evaluate ascites for possible paracentesis. distended abd Scan of all four quadrants produced moderate fluid seen. IMPRESSION: Moderate amount of ascites
--- NOTE | 2023-01-31 16:04 | P.PN ---
Progress Note - Text Progress Note Date: 01/31/23 Patient remains stable. He has no significant complaints of abdominal pain. On exam vital signs are stable. Abdomen soft mildly distended. There is minimal epigastric tenderness. This has sees with probable tumor necrosis. Patient can receive supportive care. No surgical intervention is planned.
--- NOTE | 2023-01-31 16:22 | P.PN ---
Subjective Progress Note Date: 01/31/23 Principal diagnosis: Possible liver abscess and bacteremia Patient is a 72 year old male with a past medical history significant for right nephrectomy secondary to renal cell carcinoma COPD previous lung cancer ex-smoker with recent diagnosis of liver mass that has been biopsied on 01/20/2023 , bone scan that was negative for any bony metastasis patient presenting to the ER for evaluation of generalized not feeling well mental status changes , patient noticed to be hypotensive requiring admission to the ICU did have a CT suspicious for possible liver abscess did have gram-negative bacteremia On today's evaluation that is 01/31/2023, the patient continues to be afebrile, the patient is breathing comfortably currently on 2 L nasal cannula oxygen, the patient denies any chest pain or shortness of breath , patient has been complaining of mostly abdominal distention and pain/upper quadrant area however no worsening, no nausea no vomiting or diarrhea Objective - Vital Signs Vital signs: Vital Signs Temp 98.0 F 01/31/23 11:02 Pulse 83 01/31/23 11:02 Resp 18 01/31/23 11:02 BP 106/59 01/31/23 11:02 Pulse Ox 94 L 01/31/23 11:02 FiO2 Intake & Output 01/30/23 01/31/23 01/31/23 18:59 06:59 18:59 Intake Total 360 150 118 Output Total 625 225 300 Balance -265 -75 -182 Intake: IV 150 Piperacillin-Tazobactam 3 100 .375 gm In Sodium Chloride 0.9% 100 ml @ 25 mls/hr IVPB Q8H ROBERTA Rx#: [id number] Sodium Chloride 0.9% 1, 50 000 ml @ 50 mls/hr IV . Q20H ROBERTA Rx#:[id number] Oral 360 118 Output: Urine 625 225 300 Other: Voiding Method Indwelling Catheter Indwelling Catheter Indwelling Catheter - Exam GENERAL DESCRIPTION: An elderly male lying in bed in no distress RESPIRATORY SYSTEM: Unlabored breathing , decreased breath sounds at bases HEART: S1 S2 regular rate and rhythm , ABDOMEN: Soft , mild right upper quadrant tenderness EXTREMITIES: No edema feet - Labs CBC & Chem 7: 01/31/23 05:56 01/31/23 05:56 Labs: Abnormal Lab Results - Last 24 Hours (Table) 01/31/23 01/31/23 Range/Units 05:56 05:56 RBC 2.79 L (4.30-5.90) m/uL Hgb 8.0 L (13.0-17.5) gm/dL Hct 26.2 L (39.0-53.0) % MCHC 30.5 L (31.0-37.0) g/dL RDW 15.8 H (11.5-15.5) % Chloride 114 H (98-107) mmol/L Carbon Dioxide 17 L (22-30) mmol/L BUN 30 H (9-20) mg/dL Creatinine 1.56 H (0.66-1.25) mg/dL Calcium 8.0 L (8.4-10.2) mg/dL Total Bilirubin 1.9 H (0.2-1.3) mg/dL AST 100 H (17-59) U/L Alkaline Phosphatase 1075 H (38-126) U/L Total Protein 6.1 L (6.3-8.2) g/dL Albumin 2.1 L (3.5-5.0) g/dL Microbiology - Last 24 Hours (Table) 01/27/23 05:31 Blood Culture - Preliminary Blood No Growth after 96 hours 01/28/23 14:50 Anaerobic Culture - Preliminary Ascites Fluid 01/28/23 14:50 Gram Stain - Preliminary Ascites Fluid Body Fluid Culture - Preliminary Assessment and Plan (1) Gram-negative bacteremia Current Visit: Yes Status: Acute Code(s): R78.81 - BACTEREMIA SNOMED Code(s): 878806762631 (2) Hepatic abscess Current Visit: Yes Status: Acute Priority: High Code(s): K75.0 - ABSCESS OF LIVER SNOMED Code(s): 54134191 Plan: 1-Patient presented to hospital with sepsis/septic shock in this patient with fever elevated white count tachycardia elevated lactic acid hypotension requiring pressor support now with evidence of gram-negative bacteremia source is likely liver abscess or tumor necrosis in this patient who did have a recent biopsy and will need to cover for the resistant gram-negative 2-blood cultures repeat has been negative so far 3-patient source of bacteremia is likely liver abscess and will benefit from IR drainage of this abscess to decrease the burden of infection, patient has cleared his bacteremia with a blood culture drawn on 01/27/2023 has been negative, patient to continue with Zosyn and monitor clinical course closely Time with Patient: Less than 30
--- NOTE | 2023-01-31 22:57 | P.PN ---
Subjective Progress Note Date: 01/31/23 Sincerely follow-up today he is status post paracentesis on Tuesday his uneventful weekend however he still is getting distended from abdominal ascites IV antibiotics and his sepsis is improved. Old by oncology and general surgery and infectious disease discussions with surgery in oncology Tuesday and patient will most likely undergo further workup for metastatic renal adenocarcinoma. Discussion with radiology said that is too risky to percutaneously drain patient's area of abscess which lies adjacent to his lung. Objective - Vital Signs Vital signs: Vital Signs Temp 97.7 F 01/31/23 20:00 Pulse 89 01/31/23 20:00 Resp 18 01/31/23 20:00 BP 116/66 01/31/23 20:00 Pulse Ox 94 L 01/31/23 20:00 FiO2 Intake & Output 01/31/23 01/31/23 02/01/23 06:59 18:59 06:59 Intake Total 150 236 Output Total 225 600 Balance -75 -364 Weight 86.2 kg Intake: IV 150 Piperacillin-Tazobactam 3 100 .375 gm In Sodium Chloride 0.9% 100 ml @ 25 mls/hr IVPB Q8H ROBERTA Rx#: [id number] Sodium Chloride 0.9% 1, 50 000 ml @ 50 mls/hr IV . Q20H ROBERTA Rx#:[id number] Oral 236 Output: Urine 225 600 Other: Voiding Method Indwelling Catheter Indwelling Catheter Indwelling Catheter - Exam PHYSICAL EXAM: VITAL SIGNS: [As above] GENERAL: Sitting up in bed, no acute distress HEENT: Atraumatic, normocephalic NECK: Supple, No JVD. CARDIOVASCULAR: S1, S2 regular. No murmur. RESPIRATION: Breath sounds diminished in the bases. ABDOMEN: Soft, increased distension, tender, ascites . No guarding.Positive hepatosplenomegaly.hypoactive Bowel sounds. LEGS: no edema. PSYCHIATRY: Alert and oriented X3, mood and affect normal. NERVOUS SYSTEM: Cranial N 2-12 grossly normal. No focal deficits. Strength and sensation grossly intact. Skin: Warm and dry ,no rash - Labs CBC & Chem 7: 01/31/23 05:56 01/31/23 05:56 Labs: Abnormal Lab Results - Last 24 Hours (Table) 01/31/23 01/31/23 Range/Units 05:56 05:56 RBC 2.79 L (4.30-5.90) m/uL Hgb 8.0 L (13.0-17.5) gm/dL Hct 26.2 L (39.0-53.0) % MCHC 30.5 L (31.0-37.0) g/dL RDW 15.8 H (11.5-15.5) % Chloride 114 H (98-107) mmol/L Carbon Dioxide 17 L (22-30) mmol/L BUN 30 H (9-20) mg/dL Creatinine 1.56 H (0.66-1.25) mg/dL Calcium 8.0 L (8.4-10.2) mg/dL Total Bilirubin 1.9 H (0.2-1.3) mg/dL AST 100 H (17-59) U/L Alkaline Phosphatase 1075 H (38-126) U/L Total Protein 6.1 L (6.3-8.2) g/dL Albumin 2.1 L (3.5-5.0) g/dL Microbiology - Last 24 Hours (Table) 01/27/23 05:31 Blood Culture - Preliminary Blood No Growth after 96 hours Assessment and Plan (1) Gram-negative bacteremia Current Visit: Yes Status: Acute Code(s): R78.81 - BACTEREMIA SNOMED Code(s): 212743396481 (2) Hepatic abscess Current Visit: Yes Status: Acute Priority: High Code(s): K75.0 - ABSCESS OF LIVER SNOMED Code(s): 21305542 (3) Liver mass Current Visit: Yes Status: Acute Code(s): R16.0 - HEPATOMEGALY, NOT ELSEWHERE CLASSIFIED SNOMED Code(s): 209310830 (4) Metastatic renal cell carcinoma to liver Current Visit: Yes Status: Acute Code(s): C78.7 - SECONDARY MALIG NEOPLASM OF LIVER AND INTRAHEPATIC BILE DUCT; C64.9 - MALIGNANT NEOPLASM OF UNSP KIDNEY, EXCEPT RENAL PELVIS SNOMED Code(s): 12112030 (5) Renal cell adenocarcinoma Current Visit: Yes Status: Acute Priority: High Code(s): C64.9 - MALIGNANT NEOPLASM OF UNSP KIDNEY, EXCEPT RENAL PELVIS SNOMED Code(s): 726168456 (6) Sepsis Current Visit: Yes Status: Acute Code(s): A41.9 - SEPSIS, UNSPECIFIED ORGANISM SNOMED Code(s): 28148866 Plan: Judith hadn't have discussions with infectious disease and oncology again patient will most likely need to undergo further staging and evaluation of his metastatic renal cell carcinoma. Currently we'll continue to follow patient's progress interventional radiologist has stated that it be too risky to percutaneously drain area of concern due to the proximity of this lungs. I'll have discussion with patient and his family regarding ongoing care Time with Patient: Greater than 30
[2023-02-01] MEDS: SODIUM CHLORIDE 0.9% 1,000 ML IV SCH (03:16)
[2023-02-01] MEDS: HYDROmorphone 1 MG/ML 1 ML SYRINGE IVP PRN ×3 (03:43→20:47)
[2023-02-01] MEDS: PIPERACILLIN-TAZOBACTAM 3.375 GM in SODIUM CHLORIDE 0.9% 100 ML IVPB SCH ×3 (04:00→20:43)
[2023-02-01] MEDS: PANTOPRAZOLE 40 MG/10 ML VIAL IV SCH (08:52)
[2023-02-01] MEDS: HEPARIN SODIUM,PORCINE/PF 5,000 UNIT/0.5 ML SYRINGE SQ SCH ×2 (09:06→20:43)
[2023-02-01 09:27] LABS: Prothrombin Time 10.3 sec (9.0-12.0)
--- NOTE | 2023-02-01 10:27 | P.DS ---
Providers Date of admission: 01/25/23 19:05 Expected date of discharge: 02/01/23 Attending physician: Jorge Etienne Consults: 01/25/23 19:02 Consult Physician Stat Consulting Provider: Prosper Pradhan Consult Reason/Comments: liver abscess Do you want consulting provider notified?: Yes 01/25/23 19:14 Consult Physician Stat Consulting Provider: Adolfo Dale Consult Reason/Comments: bladder cancer with liver mets Do you want consulting provider notified?: Yes 01/26/23 04:46 Consult Physician Stat Consulting Provider: Suman Stanford Consult Reason/Comments: ICU Transfer/Hypotension Do you want consulting provider notified?: Already Contacted 01/26/23 04:57 Consult Physician Urgent Consulting Provider: Yogesh De La O Consult Reason/Comments: Liver abscess, UTI, Sepsis Do you want consulting provider notified?: Yes Primary care physician: Jorge Etienne [facility] Course: (1) Gram-negative bacteremia Current Visit: Yes Status: Acute Code(s): R78.81 - BACTEREMIA SNOMED Code(s): 022240045863 (2) Hepatic abscess Current Visit: Yes Status: Acute Priority: High Code(s): K75.0 - ABSCESS OF LIVER SNOMED Code(s): 01060954 (3) Liver mass Current Visit: Yes Status: Acute Code(s): R16.0 - HEPATOMEGALY, NOT ELSEW HERE CLASSIFIED SNOMED Code(s): 508044992 (4) Metastatic renal cell carcinoma to liver Current Visit: Yes Status: Acute Code(s): C78.7 - SECONDARY MALIG NEOPLASM OF LIVER AND INTRAHEPATIC BILE DUCT; C64.9 - MALIGNANT NEOPLASM OF UNSP KIDNEY, EXCEPT RENAL PELVIS SNOMED Code(s): 35143937 (5) Renal cell adenocarcinoma Current Visit: Yes Status: Acute Priority: High Code(s): C64.9 - MALIGNANT NEOPLASM OF UNSP KIDNEY, EXCEPT RENAL PELVIS SNOMED Code(s): 940420511 (6) Sepsis Current Visit: Yes Status: Acute Code(s): A41.9 - SEPSIS, UNSPECIFIED ORGANISM SNOMED Code(s): 25224126 Hospital course:This is a pleasant 72-year-old gentleman with past medical history of right renal cancer status post nephrectomy, bladder cancer, COPD, hypertension, osteoarthritis, former nicotine dependence and multiple other medical issues presented to the ER with nausea, vomiting, diarrhea ,abdominal pain, abdominal distention, jaundiced and confusion. 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 Reports on 3:30 he had a paracentesis with liver biopsy, pathology pending in addition to diagnostic paracentesis. He reports also that he developed a cough, increased jaundice and dark and urine, postprocedure. In October patient developed new symptoms of generalized abdominal discomfort, early satiety,decreased appetite and subsequent weight loss. States unintentional weight loss of 40 pounds in 4 months. Low grade fever on admission with mild tachycardia. Hypotensive requiring pressor support, currently on Levophed. Hypothermic requiring bear hugger. Chest x-ray reporting no acute cardiopulmonary disease/process. CT of abdomen and pelvis reported interval development of suspected intrahepatic abscess given history of leukocytosis and fever.Findings likely result represent necrosis of prior mass with superimposed infection. On admission, Lactic acid initially 6.3, currently at 3. afebrile, (T-max 100.4), WBC 19.2, hemoglobin 10.1, hematocrit 31.8, platelets 318. INR 1.2. Sodium 138, potassium 5.3, chloride 104, Bicarb 16, BUN 46, creatinine 2.02, glucose 137. LFTs are elevated and his AST is 397, a 92, alkaline phosphatase 624. Ammonia 55. UA negative. Hepatitis serology pending. Maintained on Flagyl and Zosyn. Continues on IV fluid resuscitation as per sepsis protocol. 01/27/2023 Levophed was weaned off yesterday afternoon. Maintained on IV fluid hydration. 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 Peritoneal pathologic diagnosis reporting no cytologically malignant cells identified. Continues on antibiotics as per infectious disease. Surgical versus IR drainage of abscess/fluid recommended per ID, pending. Positive abdominal pain, increased distention. Bear hugger off, maintaining temperatures currently of 97.6F. afebrile, hemoglobin 9, platelets 212, BUN 50, creatinine 1.66. LFTs improving, T bili 3.1, AST 262, ALT 77, alk phos 399. Ammonia 14. CRP 24.3. 01/28/2023 increased abdominal pain, increased ascites, borderline hypotension with subsequent worsening hypoxia, now requiring 4 L nasal cannula to maintain O2 sats in the 90s-currently 94%. Evaluated by interventional radiology reporting difficult access route, placed IR consult on hold and referred back to general surgery. General surgery recommended no surgical intervention at this time, and if he requires a surgical procedure to transfer to tertiary care center/hepatobiliary surgeon. PCP speaking with oncologist to determine if transfer required at this time to a tertiary care center. Maintained on Zosyn. Afebrile, normal WBC. Hemoglobin 9.3, platelets 193. BUN 44, creatinine 1.51 Progress Note Date: 01/31/23 Sincerely follow-up today he is status post paracentesis on Tuesday his uneventful weekend however he still is getting distended from abdominal ascites IV antibiotics and his sepsis is improved. Old by oncology and general surgery and infectious disease discussions with surgery in oncology Tuesday and patient will most likely undergo further workup for metastatic renal adenocarcinoma. Discussion with radiology said that is too risky to percutaneously drain patient's area of abscess which lies adjacent to his lung. Underwent successful palliative paracentesis on 01/28/2023. Abdominal girth, abdominal tenderness increasing. Per Infectious disease,"patient source of bacteremia is likely liver abscess and will benefit from IR drainage of this abscess to decrease the burden of infection, patient has cleared his bacteremia with a blood culture drawn on 01/27/2023 has been negative, patient to continue with Zosyn". Therefore to facilitate drainage of liver abscess recommended by infectious disease, that both IR and general surgery declined secondary to high risk, patient requires transfer to tertiary care center at [facility] in a stable condition with guarded prognosis. PCP, Dr. Etienne updated daughter via phone . Both Patient and daughter are in agreement with transfer to [facility]. The impression and plan of care has been dictated as directed. : I performed a history and examination of this patient, discussed the same with the dictator. I agree with the dictator's note ,documented as a scribe. Any additional findings or plans will be noted. Patient Condition at Discharge: Stable Plan - Discharge Summary Discharge Rx Participant: Yes New Discharge Prescriptions: No Action No Known Home Medications Discharge Medication List No Known Home Medications 01/25/23 [History] Follow up Appointment(s)/Referral(s): Jorge Etienne DO [Primary Care Provider] - 1-2 days Activity/Diet/Wound Care/Special Instructions: Transfer to tertiary care center, hepatobiliary surgeon at [facility]
--- NOTE | 2023-02-01 11:11 | US ---
Ultrasound-guided paracentesis. DATE OF EXAM: 02/01/2023 CLINICAL HISTORY: Ascites The procedure was discussed with the patient. The risks, complications, benefits, and alternatives we re discussed and any questions were answered. Informed consent was obtained. The patient was placed s upine on the ultrasound table and prepped and draped in the usual sterile fashion. All elements of maximal barrier technique were utilized. Under ultrasound guidance, access into the right lower quadrant was obtained, via the paracentesis catheter system and direct ultrasound guidanc e. The patient was stable throughout the procedure and remained stable upon discharge from Department of Radiology. IMPRESSION: Successful paracentesis under ultrasound guidance.
[2023-02-01] MEDS: FLUCONAZOLE ORAL SUSP 1,400 MG/35 ML BOTTLE PO SCH (11:27)
--- NOTE | 2023-02-01 12:26 | P.PN ---
Subjective Progress Note Date: 02/01/23 Principal diagnosis: Sepsis. I'm seeing this patient in new consultation today 01/26/2023 in the emergency room for ICU management. This is a pleasant 72-year-old white male with past medical history of of a suspicious liver mass, previous right nephrectomy related to renal cell carcinoma, COPD, hypertension, cholecystectomy, appendectomy, previous skin cancer, ex-smoker. A CT of the chest, abdomen and pelvis with contrast on 12/29/2022 showed a large heterogenous mass involving the posterior aspect of the right lobe of the liver that measures at least 9.2 x 8.1 cm in diameter. 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 Patient recently had a CT-guided biopsy of the liver on 01/20/2023, and pathology results are pending. Patient has also had diagnostic paracentesis. A bone scan showed no evidence of osseous metastasis. Patient presented to the ER yesterday afternoon with chief complaint of nonlocalized abdominal pain, nausea, vomiting, and. Patient presented with a friend who states that he seems more confused than normal. Patient is currently sitting up in bed, on room air, in no acute distress. Chest x-ray showed no ac cahto cardiopulmonary process. Abdomen is soft but painful to palpation.. Patient denies any matting hematemesis or bloody bowel movements. Patient does appear slightly jaundiced. Urine is orange. An abdominal CT without contrast on admission showed an interval development of suspected intrahepatic abscess. Findings which likely represent necrosis of prior mass with superimposed infection. The remainder of the mass was suboptimally evaluated given lack of IV contrast. There was also a redemonstration of the pneumobilia initially seen on previous exam, trace ascites and splenomegaly. Patient is hypotensive after a total of 2 L normal saline fluid resuscitation. For this reason, patient will be transferred to the intensive care unit for vasopressor support. Patient also has a suspicious urinalysis with leukocyte esterase and moderate bacteria. Patient's lactic acid level was originally 6.3 and is down to 4.2 after fluid resuscitation. Patient is empirically covered on Unasyn. CBC on arrival shows leukocytosis with a WBC count of 19.2, hemoglobin 10.1, hematocrit 31.8, platele ts 318,000. PT/INR was 12 and 1.2. BMP shows a sodium 138, potassium 5.3, chloride 104, serum CO2 16, BUN 46, creatinine 2.02, glucose 137. Normal saline is infusing at 130 mL per hour. LFTs are elevated and his AST is 397, a 92, alkaline phosphatase 624. Ammonia 55. Patient's condition is critical, and he will be transferred to the intensive care unit. Patient was reevaluated today on 01/27/2023, remains in the ICU, patient is hemodynamically stable. Off norepinephrine, IV fluid 0.9 normal saline at 100 mL per hour. His blood cultures came back positive for E. coli and Klebsiella pneumonia as well as alphahemolytic streptococcus. Patient has been all along on antibiotics, presently on Zosyn. And that correlates with his initial presentation of possible liver abscess and sepsis/septic shock. Nonetheless the patient is looking much improved. And looks hemodynamically stable. Based on the surgical input, no need for surgery, patient is now receiving antibiotics and I would suggest that we continue medical treatment if surgery is to be considered down the line patient related to be transferred to a tertiary care center. CBC today is normal that was abnormal renal profile showed a BUN of 50 creatinine 1.66, improving to his baseline creatinine on admission of 2.0 Reevaluated today on 01/28/2023 patient remains in the ICU, actually he is doing better than expected he is on 4 L nasal cannula IV fluid is 0.9 normal saline at 100 mL per hour hemodynamically stable, remains on antibiotics for his sepsis and septic shock from liver abscess. Surgery is recommending referral to a tertiary care center for a hepatobiliary surgeon however oncology believes that the patient has poor prognosis and we'll recommend mostly palliative care. In the meantime continue antibiotics empirically and could potentially transfer out of the ICU the patient remains hemodynamically stable today. May need long course of IV antibiotics via a PICC line that could be arranged for next week. WBC is 9.4 hemoglobin 9.3 left first of normal renal profile showed a BUN of 44 creatinine 1.51 Reevaluated today on 01/29/2023, patient is basically about the same, no major change booth attendant the last 24 hours. He is on 2 L nasal cannula and his O2 sat is 97%, denies any shortness of breath, denies nausea or vomiting, he does have some vague abdominal discomfort. CBC is relatively normal basic metabolic profile is normal BUN is 44 creatinine 1.51 liver enzymes remain abnormal as expected. Patient had a paracentesis yesterday, and about 1500 mL of fluid was drained from his tibial cavity. The patient is seen today 01/30/2023 in follow-up on the regular medical floor. He is sitting up in a chair at the bedside. Awake and alert in no acute distress. Denies any worsening shortness of breath, cough or congestion. Maintaining good O2 saturations in the mid 90s on room air. Afebrile. H emodynamically stable. Follow-up blood cultures revealing no growth. Ascites fluid cultures pending. White count 10.0. Hemoglobin 8.4. Platelets 223. Sodium 138. Potassium 4.3. Bicarb 16. BUN 31. Creatinine 1.65. Glucose 104. AST 100. ALT 38. Alk phos 961. He remains on antibiotics in the form of Zosyn. Normal saline at 50 MLS per hour. Heparin for DVT prophylaxis. Progress note dated 01/31/2023. The patient is seen today in room 381. The patient currently is on room air. He is getting saline IV at 60 mL an hour. He continues on Zosyn as an antibiotic. He is doing about the same today as he was yesterday. White count 10.2, hemoglobin 8, hematocrit 26.2, and platelet count 228,000. Sodium 139, potassium 4.6, chlorides 114, CO2 17, BUN 30, creatinine 1.56. Alkaline phosphatase is 1075. Albumin is 2.1. Blood cultures show evidence of Escherichia coli, 2 different species of Klebsiella pneumoniae, and alpha- hemolytic streptococci. Progress note dated 02/01/2023. The patient is seen today in room 381. The patient's on room air. The patient's getting saline at 50 mL an hour. The patient has no new complaints today. Labs today included a PT of 10.3 and an INR 1.0. Blood cultures are positive for Escherichia coli, Klebsiella pneumoniae, and alpha-hemolytic streptococci. Objective - Vital Signs Vital signs: Vital Signs Temp 98 F 02/01/23 12:04 Pulse 92 02/01/23 12:04 Resp 18 02/01/23 12:04 BP 118/67 02/01/23 12:04 Pulse Ox 95 02/01/23 12:04 FiO2 Intake & Output 01/31/23 02/01/23 02/01/23 18:59 06:59 18:59 Intake Total 236 240 Output Total 600 250 Balance -364 -250 240 Weight 86.2 kg Intake: Oral 236 240 Output: Urine 600 250 Other: Voiding Method Indwelling Catheter Indwelling Catheter Indwelling Catheter # Bowel Movements 1 - Exam No acute distress, oriented 3. Currently on room air. HEENT examination is grossly unremarkable. Neck supple. Full range of motion. No adenopathy thyromegaly or neck vein distention. Cardiovascular examination reveals regular rhythm rate. S1-S2 normal. No S3 or S4. No discernible murmur noted. Heart rate 92 bpm. Lungs reveal clear breath sounds. Breath sounds are equal bilaterally. No ad ventitious lung sounds including wheezes rhonchi or crackles. Room air saturation is 96 %. Abdomen is distended, and mildly tender. Extremities are intact. No cyanosis clubbing or edema. Skin is without rash or lesion. Neurologic examination is brief but nonfocal. - Labs CBC & Chem 7: 01/31/23 05:56 01/31/23 05:56 Labs: Microbiology - Last 24 Hours (Table) 01/28/23 14:50 Gram Stain - Final Ascites Fluid Body Fluid Culture - Final 01/27/23 05:31 Blood Culture - Preliminary Blood No Growth after 120 hours Assessment and Plan Assessment: Sepsis related to suspected liver abscess, or most likely the patient has a necrotic tumor involving the liver. Bacteremia secondary to E. coli, Klebsiella pneumonia, and alpha-hemolytic strep, most likely source is his liver abscess. High anion gap metabolic acidosis secondary to lactic acidosis, improving. Known liver mass suspicious for metastasis. Suspect mild to moderate ascites. Elevated LFTs and ammonia secondary to above. Acute kidney injury, improving. Background COPD which is stable. History of previous right nephrectomy related to renal cell carcinoma. History of cholecystectomy. History of appendectomy. History of previous skin cancer. Ex-smoker. Plan: Plan dated 01/31/2023. The patient's doing well. He is currently on room air. The patient is receiving saline at 60 mL an hour. Apparently, a palliative care consult was initiated. The patient's currently also on Zosyn as an antibiotic. We will continue to follow and make recommendations along the way. Labs, x-rays, and medications are reviewed. Plan dated 02/01/2023. The patient remains on Zosyn for his infection. Vital signs are stable. Room air saturations are in the mid 90s. We will continue to follow make recommendations along the way. The patient also remains on oral Diflucan, 200 mg daily. Labs, x-rays, and medications are reviewed. Prognosis is certainly guarded. Time with Patient: Less than 30
--- NOTE | 2023-02-01 12:51 | P.PN ---
Subjective Progress Note Date: 02/01/23 CHIEF COMPLAINT: Abdominal pain HISTORY OF PRESENT ILLNESS: Patient has increased abdominal distention. Ultrasound had shown evidence of moderate ascites. Patient is scheduled for paracentesis today. They are working on transferring patient to [facility] for possible drainage of liver abscess. Patient reports controlled pain his controlled. Denies any nausea or vomiting. Afebrile. WBC is 10.2 HgB8.0 platelets 228 INR 1. 0 repeat blood cultures negative PHYSICAL EXAM: VITAL SIGNS: Reviewed. GENERAL: Well-developed in no acute distress. ABDOMEN: Distended. Evidence of ascites. Tenderness with palpation of right upper quadrant ASSESSMENT: 1. Metastatic renal cancer to the liver 2. Tumor necrosis 3. Recurrent abdominal ascites PLAN: -No surgical intervention planned -Continue supportive care Physician Compliance Clerk note has been reviewed by physician. Signing provider agrees with the documented findings, assessment, and plan of care. Objective - Vital Signs Vital signs: Vital Signs Temp 98 F 02/01/23 12:04 Pulse 89 02/01/23 12:23 Resp 20 02/01/23 12:23 BP 108/67 02/01/23 12:23 Pulse Ox 96 02/01/23 12:23 FiO2 Intake & Output 01/31/23 02/01/23 02/01/23 18:59 06:59 18:59 Intake Total 236 240 Output Total 600 250 Balance -364 -250 240 Weight 86.2 kg Intake: Oral 236 240 Output: Urine 600 250 Other: Voiding Method Indwelling Catheter Indwelling Catheter Indwelling Catheter # Bowel Movements 1 - Labs CBC & Chem 7: 01/31/23 05:56 01/31/23 05:56 Labs: Microbiology - Last 24 Hours (Table) 01/28/23 14:50 Gram Stain - Final Ascites Fluid Body Fluid Culture - Final 01/27/23 05:31 Blood Culture - Preliminary Blood No Growth after 120 hours
[2023-02-01] MEDS ORDERED: SODIUM CHLORIDE 0.9% 1,000 ML IV SCH ×2 (15:00→23:00)
--- NOTE | 2023-02-01 15:31 | CT ---
EXAMINATION TYPE: CT abdomen w con DATE OF EXAM: 02/01/2023 COMPARISON: 01/25/2023 HISTORY: assess changes in liver abscess CT DLP: 894.8 mGycm CONTRAST: CT scan of the abdomen is performed without Oral Contrast and with IV Contrast, patient injected with 70 mL of Isovue 300. Previous examination is difficult to compare given the lack of intravenous cont rast on prior study. FINDINGS: LUNG BASES-: No visible nodule. No infiltrate. LIVER/GB: Multiple hypoattenuating masses noted within the right hepatic lobe. There is a mass which contains fluid and air compatible with abscess and/or necrotic tumor which measures 9.5 x 6.1 x 7.8 c m and appears enlarged relative to the prior study measuring 7.2 x 5.0 x 5.1 cm although direct shelly rison is difficult. Pneumobilia has essentially resolved in the interval. PANCREAS: No inflammation. No distinct mass. SPLEEN: Spleen is enlarged at 15.5 cm. No lesion seen. ADRENALS: No nodule. No thickening. KIDNEYS/BLADDER: No hydronephrosis. No nephrolithiasis. No distinct renal mass. Urinary bladder g rossly unremarkable. BOWEL: Postsurgical changes of partial right hemicolectomy. No evidence for recurrent mass. No obstru ctive changes seen. Free fluid noted within the abdomen and pelvis small and amount and unchanged fro m prior study. LYMPH NODES: No greater than 1cm abdominal or pelvic lymph nodes are appreciated. AORTA: No significant abnormality. OSSEOUS STRUCTURES: No significant abnormality is seen. OTHER: No significant additional abnormality is seen. IMPRESSION: 1. Enlarging hepatic abscess. 2. Multiple hypoattenuating lesions within the liver are redemonstrated. 3. Right basilar pleural effusion and compressive atelectasis. Ascites within the abdomen.
--- NOTE | 2023-02-01 16:18 | P.PN ---
Subjective Progress Note Date: 02/01/23 Principal diagnosis: Sepsis, Liver abscess status post biopsy In follow-up today patient is not reporting any new pain but, abdominal distention and abdominal discomfort to palpation is persistent. No fevers, vomiting, documented BM overnight. Objective - Vital Signs Vital signs: Vital Signs Temp 98.0 F 02/01/23 15:00 Pulse 89 02/01/23 15:00 Resp 20 02/01/23 15:00 BP 120/66 02/01/23 15:00 Pulse Ox 96 02/01/23 15:00 FiO2 Intake & Output 01/31/23 02/01/23 02/01/23 18:59 06:59 18:59 Intake Total 236 780 Output Total 600 250 Balance -364 -250 780 Weight 86.2 kg Intake: Oral 236 780 Output: Urine 600 250 Other: Voiding Method Indwelling Catheter Indwelling Catheter Indwelling Catheter # Bowel Movements 1 - Constitutional General appearance: Present: average body habitus, cooperative, no acute distress - EENT Eyes: Present: anicteric sclerae, EOMI ENT: Present: hearing grossly normal - Respiratory Respiratory: bilateral: CTA - Gastrointestinal General gastrointestinal: Present: decreased bowel sounds, distended, hepatomegaly, soft, tenderness - Neurologic Neurologic: Present: CNII-XII intact - Musculoskeletal Musculoskeletal: Present: generalized weakness - Psychiatric Psychiatric: Present: A&O x's 3, appropriate affect, intact judgment & insight - Labs CBC & Chem 7: 01/31/23 05:56 01/31/23 05:56 Labs: Microbiology - Last 24 Hours (Table) 01/28/23 14:50 Anaerobic Culture - Final Ascites Fluid 01/28/23 14:50 Gram Stain - Final Ascites Fluid Body Fluid Culture - Final 01/27/23 05:31 Blood Culture - Preliminary Blood No Growth after 120 hours Assessment and Plan (1) Hepatic abscess Current Visit: Yes Status: Acute Priority: High Code(s): K75.0 - ABSCESS OF LIVER SNOMED Code(s): 99425659 (2) Renal cell adenocarcinoma Current Visit: Yes Status: Acute Priority: High Code(s): C64.9 - MALIGNANT NEOPLASM OF UNSP KIDNEY, EXCEPT RENAL PELVIS SNOMED Code(s): 816591636 Plan: Hepatic abscess -pt doing much better, out of ICU -Abdominal pain and distention persist. -Discussed case with Infectious Disease, recommended CT of the abdomen to assess the abscess site. Discussed this with Internal Medicine OPERATIONS LABEL CLERK -CT results reviewed, progression in the size of the abscess. Recommendation from ID was for patient to be transferred for abscess drainage. This was discussed with Internal Medicine OPERATIONS LABEL CLERK. Continue plans for transfer. Renal cell carcinoma -Patient is status post liver biopsy, path + RCC. -Staging PET [facility] 02/12 -F/U Dr. Dale 02/14 at 3:15 PT consulted to evaluate and treat pt as he is getting weaker.
--- NOTE | 2023-02-01 18:55 | P.PN ---
Subjective Progress Note Date: 02/01/23 Principal diagnosis: Possible liver abscess and bacteremia Patient is a 72 year old male with a past medical history significant for right nephrectomy secondary to renal cell carcinoma COPD previous lung cancer ex-smoker with recent diagnosis of liver mass that has been biopsied on 01/20/2023 , bone scan that was negative for any bony metastasis patient presenting to the ER for evaluation of generalized not feeling well mental status changes , patient noticed to be hypotensive requiring admission to the ICU did have a CT suspicious for possible liver abscess did have gram-negative bacteremia On today's evaluation that is 02/01/2023, the patient remainsto be afebrile, the patient is breathing comfortably currently on 2 L nasal cannula oxygen, the patient denies any chest pain or shortness of breath , patient hdenies any worsening abdominal pain or abdominal distention and no nausea no vomiting or diarrhea Objective - Vital Signs Vital signs: Vital Signs Temp 98 F 02/01/23 12:04 Pulse 89 02/01/23 12:23 Resp 20 02/01/23 12:23 BP 108/67 02/01/23 12:23 Pulse Ox 96 02/01/23 12:23 FiO2 Intake & Output 01/31/23 02/01/23 02/01/23 18:59 06:59 18:59 Intake Total 236 240 Output Total 600 250 Balance -364 -250 240 Weight 86.2 kg Intake: Oral 236 240 Output: Urine 600 250 Other: Voiding Method Indwelling Catheter Indwelling Catheter Indwelling Catheter # Bowel Movements 1 - Exam GENERAL DESCRIPTION: An elderly male lying in bed in no distress RESPIRATORY SYSTEM: Unlabored breathing , decreased breath sounds at bases HEART: S1 S2 regular rate and rhythm , ABDOMEN: Soft , mild right upper quadrant tenderness EXTREMITIES: No edema feet - Labs CBC & Chem 7: 01/31/23 05:56 01/31/23 05:56 Labs: Microbiology - Last 24 Hours (Table) 01/28/23 14:50 Gram Stain - Final Ascites Fluid Body Fluid Culture - Final 01/27/23 05:31 Blood Culture - Preliminary Blood No Growth after 120 hours Assessment and Plan (1) Gram-negative bacteremia Current Visit: Yes Status: Acute Code(s): R78.81 - BACTEREMIA SNOMED Code(s): 522020219044 (2) Hepatic abscess Current Visit: Yes Status: Acute Priority: High Code(s): K75.0 - ABSCESS OF LIVER SNOMED Code(s): 51696180 Plan: 1-Patient presented to hospital with sepsis/septic shock in this patient with fever elevated white count tachycardia elevated lactic acid hypotension requiring pressor support now with evidence of gram-negative bacteremia source is likely liver abscess or tumor necrosis in this patient who did have a recent biopsy and will need to cover for the resistant gram-negative 2-blood cultures repeat has been negative so far 3-patient source of bacteremia is likely liver abscess and will benefit from IR drainage of this abscess to decrease the burden of infection, patient care has been discussed with the oncology team we will repeat CT of abdominal to follow- up on the liver abscess/necrotic tumor, if there is decrease in the size of the abscess we can make a case for continuation of IV antibiotics however if no improvement or any worsening/enlarging abscess patient will benefit from transfer to tertiary care for drainage of this abscess continue with the Zosyn for now Time with Patient: Less than 30
[2023-02-02] MEDS: PIPERACILLIN-TAZOBACTAM 3.375 GM in SODIUM CHLORIDE 0.9% 100 ML IVPB SCH ×2 (06:01→14:28)
[2023-02-02 07:52] VITALS: BP 114/64
[2023-02-02] MEDS: FLUCONAZOLE ORAL SUSP 1,400 MG/35 ML BOTTLE PO SCH (08:36)
[2023-02-02] MEDS: HEPARIN SODIUM,PORCINE/PF 5,000 UNIT/0.5 ML SYRINGE SQ SCH (08:38)
[2023-02-02] MEDS: PANTOPRAZOLE 40 MG/10 ML VIAL IV SCH (08:40)
--- NOTE | 2023-02-02 11:23 | P.PN ---
Subjective Progress Note Date: 02/02/23 Principal diagnosis: Sepsis. I'm seeing this patient in new consultation today 01/26/2023 in the emergency room for ICU management. This is a pleasant 72-year-old white male with past medical history of of a suspicious liver mass, previous right nephrectomy related to renal cell carcinoma, COPD, hypertension, cholecystectomy, appendectomy, previous skin cancer, ex-smoker. A CT of the chest, abdomen and pelvis with contrast on 12/29/2022 showed a large heterogenous mass involving the posterior aspect of the right lobe of the liver that measures at least 9.2 x 8.1 cm in diameter. 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 Patient recently had a CT-guided biopsy of the liver on 01/20/2023, and pathology results are pending. Patient has also had diagnostic paracentesis. A bone scan showed no evidence of osseous metastasis. Patient presented to the ER yesterday afternoon with chief complaint of nonlocalized abdominal pain, nausea, vomiting, and. Patient presented with a friend who states that he seems more confused than normal. Patient is currently sitting up in bed, on room air, in no acute distress. Chest x-ray showed no ac rampart cardiopulmonary process. Abdomen is soft but painful to palpation.. Patient denies any matting hematemesis or bloody bowel movements. Patient does appear slightly jaundiced. Urine is orange. An abdominal CT without contrast on admission showed an interval development of suspected intrahepatic abscess. Findings which likely represent necrosis of prior mass with superimposed infection. The remainder of the mass was suboptimally evaluated given lack of IV contrast. There was also a redemonstration of the pneumobilia initially seen on previous exam, trace ascites and splenomegaly. Patient is hypotensive after a total of 2 L normal saline fluid resuscitation. For this reason, patient will be transferred to the intensive care unit for vasopressor support. Patient also has a suspicious urinalysis with leukocyte esterase and moderate bacteria. Patient's lactic acid level was originally 6.3 and is down to 4.2 after fluid resuscitation. Patient is empirically covered on Unasyn. CBC on arrival shows leukocytosis with a WBC count of 19.2, hemoglobin 10.1, hematocrit 31.8, platele ts 318,000. PT/INR was 12 and 1.2. BMP shows a sodium 138, potassium 5.3, chloride 104, serum CO2 16, BUN 46, creatinine 2.02, glucose 137. Normal saline is infusing at 130 mL per hour. LFTs are elevated and his AST is 397, a 92, alkaline phosphatase 624. Ammonia 55. Patient's condition is critical, and he will be transferred to the intensive care unit. Patient was reevaluated today on 01/27/2023, remains in the ICU, patient is hemodynamically stable. Off norepinephrine, IV fluid 0.9 normal saline at 100 mL per hour. His blood cultures came back positive for E. coli and Klebsiella pneumonia as well as alphahemolytic streptococcus. Patient has been all along on antibiotics, presently on Zosyn. And that correlates with his initial presentation of possible liver abscess and sepsis/septic shock. Nonetheless the patient is looking much improved. And looks hemodynamically stable. Based on the surgical input, no need for surgery, patient is now receiving antibiotics and I would suggest that we continue medical treatment if surgery is to be considered down the line patient related to be transferred to a tertiary care center. CBC today is normal that was abnormal renal profile showed a BUN of 50 creatinine 1.66, improving to his baseline creatinine on admission of 2.0 Reevaluated today on 01/28/2023 patient remains in the ICU, actually he is doing better than expected he is on 4 L nasal cannula IV fluid is 0.9 normal saline at 100 mL per hour hemodynamically stable, remains on antibiotics for his sepsis and septic shock from liver abscess. Surgery is recommending referral to a tertiary care center for a hepatobiliary surgeon however oncology believes that the patient has poor prognosis and we'll recommend mostly palliative care. In the meantime continue antibiotics empirically and could potentially transfer out of the ICU the patient remains hemodynamically stable today. May need long course of IV antibiotics via a PICC line that could be arranged for next week. WBC is 9.4 hemoglobin 9.3 left first of normal renal profile showed a BUN of 44 creatinine 1.51 Reevaluated today on 01/29/2023, patient is basically about the same, no major chart changer the last 24 hours. He is on 2 L nasal cannula and his O2 sat is 97%, denies any shortness of breath, denies nausea or vomiting, he does have some vague abdominal discomfort. CBC is relatively normal basic metabolic profile is normal BUN is 44 creatinine 1.51 liver enzymes remain abnormal as expected. Patient had a paracentesis yesterday, and about 1500 mL of fluid was drained from his tibial cavity. The patient is seen today 01/30/2023 in follow-up on the regular medical floor. He is sitting up in a chair at the bedside. Awake and alert in no acute distress. Denies any worsening shortness of breath, cough or congestion. Maintaining good O2 saturations in the mid 90s on room air. Afebrile. H emodynamically stable. Follow-up blood cultures revealing no growth. Ascites fluid cultures pending. White count 10.0. Hemoglobin 8.4. Platelets 223. Sodium 138. Potassium 4.3. Bicarb 16. BUN 31. Creatinine 1.65. Glucose 104. AST 100. ALT 38. Alk phos 961. He remains on antibiotics in the form of Zosyn. Normal saline at 50 MLS per hour. Heparin for DVT prophylaxis. Progress note dated 01/31/2023. The patient is seen today in room 381. The patient currently is on room air. He is getting saline IV at 60 mL an hour. He continues on Zosyn as an antibiotic. He is doing about the same today as he was yesterday. White count 10.2, hemoglobin 8, hematocrit 26.2, and platelet count 228,000. Sodium 139, potassium 4.6, chlorides 114, CO2 17, BUN 30, creatinine 1.56. Alkaline phosphatase is 1075. Albumin is 2.1. Blood cultures show evidence of Escherichia coli, 2 different species of Klebsiella pneumoniae, and alpha- hemolytic streptococci. Progress note dated 02/01/2023. The patient is seen today in room 381. The patient's on room air. The patient's getting saline at 50 mL an hour. The patient has no new complaints today. Labs today included a PT of 10.3 and an INR 1.0. Blood cultures are positive for Escherichia coli, Klebsiella pneumoniae, and alpha-hemolytic streptococci. Progress note dated 02/02/2023. 72-year-old male seen today in room 381. The patient's currently on room air. He's not receiving any IV fluids. He is on Zosyn and fluconazole. The most recent computed tomography scan shows an enlarging abscess in his liver. The plan is to try to transfer the patient to [facility]. Blood cultures were positive for Escherichia coli, Klebsiella pneumoniae, and alpha-hemolytic streptococci. The patient is not manifesting any signs or symptoms of respiratory distress at this time. No new labs today. Objective - Vital Signs Vital signs: Vital Signs Temp 98.9 F 02/02/23 07:51 Pulse 92 02/02/23 07:51 Resp 20 02/02/23 07:51 BP 114/64 02/02/23 07:51 Pulse Ox 95 02/02/23 04:00 FiO2 Intake & Output 02/01/23 02/02/23 02/02/23 18:59 06:59 18:59 Intake Total 780 Output Total 900 Balance 780 -900 Intake: Oral 780 Output: Urine 900 Other: Voiding Method Indwelling Catheter Indwelling Catheter Indwelling Catheter # Bowel Movements 1 - Exam No acute distress, oriented 3. Currently on room air. HEENT examination is grossly unremarkable. Neck supple. Full range of motion. No adenopathy thyromegaly or neck vein distention. Cardiovascular examination reveals regular rhythm rate. S1-S2 normal. No S3 or S4. No discernible murmur noted. Heart rate 88 bpm. Lungs reveal clear breath sounds. Breath sounds are equal bilaterally. No adventitious lung sounds including wheezes rhonchi or crackles. Room air saturation is 95 %. Abdomen is distended, and mildly tender. Extremities are intact. No cyanosis clubbing or edema. Skin is without rash or lesion. Neurologic examination is brief but nonfocal. - Labs CBC & Chem 7: 01/31/23 05:56 01/31/23 05:56 Labs: Microbiology - Last 24 Hours (Table) 01/27/23 05:31 Blood Culture - Final Blood No Growth after 144 hours 01/28/23 14:50 Anaerobic Culture - Final Ascites Fluid 01/28/23 14:50 Gram Stain - Final Ascites Fluid Body Fluid Culture - Final Assessment and Plan Assessment: Sepsis related to suspected liver abscess, or most likely the patient has a necrotic tumor involving the liver. Bacteremia secondary to E. coli, Klebsiella pneumonia, and alpha-hemolytic strep, most likely source is his liver abscess. High anion gap metabolic acidosis secondary to lactic acidosis, improving. Known liver mass suspicious for metastasis. Suspect mild to moderate ascites. Elevated LFTs and ammonia secondary to above. Acute kidney injury, improving. Background COPD which is stable. History of previous right nephrectomy related to renal cell carcinoma. History of cholecystectomy. History of appendectomy. History of previous skin cancer. Ex-smoker. Plan: Plan dated 01/31/2023. The patient's doing well. He is currently on room air. The patient is receiving saline at 60 mL an hour. Apparently, a palliative care consult was initiated. The patient's currently also on Zosyn as an antibiotic. We will continue to follow and make recommendations along the way. Labs, x-rays, and medications are reviewed. Plan dated 02/01/2023. The patient remains on Zosyn for his infection. Vital signs are stable. Room air saturations are in the mid 90s. We will continue to follow make recommendations along the way. The patient also remains on oral Diflucan, 200 mg daily. Labs, x-rays, and medications are reviewed. Prognosis is certainly guarded. Plan dated 02/02/2023. The patient's most recent computed tomography scan shows an enlarging liver abscess. The plan is to discharge the patient to [facility]. The patient remains on Zosyn and Diflucan. We will continue to follow make recommendations along the way. Respiratory status is stable. He's on room air. He does have abdominal distention and mild tenderness on palpation. Labs, x- rays, and medications are all reviewed. Time with Patient: Less than 30
[2023-02-02 11:56] VITALS: PULSE 95; RESP 18; TEMP 97.7
--- NOTE | 2023-02-02 14:37 | P.PN ---
Subjective Progress Note Date: 02/02/23 Principal diagnosis: Possible liver abscess and bacteremia Patient is a 72 year old male with a past medical history significant for right nephrectomy secondary to renal cell carcinoma COPD previous lung cancer ex-smoker with recent diagnosis of liver mass that has been biopsied on 01/20/2023 , bone scan that was negative for any bony metastasis patient presenting to the ER for evaluation of generalized not feeling well mental status changes , patient noticed to be hypotensive requiring admission to the ICU did have a CT suspicious for possible liver abscess did have gram-negative bacteremia On today's evaluation that is 02/02/2023, the patient continues to be afebrile, the patient is breathing comfortably currently on 2 L nasal cannula oxygen, the patient denies any chest pain or shortness of breath , patient still complaining of some abdominal distention and right upper quadrant discomfort nausea but no vomiting and no diarrhea has been reported Objective - Vital Signs Vital signs: Vital Signs Temp 97.7 F 02/02/23 11:54 Pulse 95 02/02/23 11:54 Resp 18 02/02/23 11:54 BP 114/64 02/02/23 07:51 Pulse Ox 94 L 02/02/23 11:54 FiO2 Intake & Output 02/01/23 02/02/23 02/02/23 18:59 06:59 18:59 Intake Total 780 0 Output Total 900 475 Balance 780 -900 -475 Weight 86.2 kg Intake: Oral 780 0 Output: Urine 900 475 Other: Voiding Method Indwelling Catheter Indwelling Catheter Indwelling Catheter # Bowel Movements 1 - Exam GENERAL DESCRIPTION: An elderly male lying in bed in no distress RESPIRATORY SYSTEM: Unlabored breathing , decreased breath sounds at bases HEART: S1 S2 regular rate and rhythm , ABDOMEN: Soft , mild right upper quadrant tenderness EXTREMITIES: No edema feet - Labs CBC & Chem 7: 01/31/23 05:56 01/31/23 05:56 Labs: Microbiology - Last 24 Hours (Table) 01/27/23 05:31 Blood Culture - Final Blood No Growth after 144 hours 01/28/23 14:50 Anaerobic Culture - Final Ascites Fluid 01/28/23 14:50 Gram Stain - Final Ascites Fluid Body Fluid Culture - Final Assessment and Plan (1) Gram-negative bacteremia Current Visit: Yes Status: Acute Code(s): R78.81 - BACTEREMIA SNOMED Code(s): 633869967742 (2) Hepatic abscess Current Visit: Yes Status: Acute Priority: High Code(s): K75.0 - ABSCESS OF LIVER SNOMED Code(s): 95221532 Plan: 1-Patient presented to hospital with sepsis/septic shock in this patient with fever elevated white count tachycardia elevated lactic acid hypotension requiring pressor support now with evidence of gram-negative bacteremia source is likely liver abscess or tumor necrosis in this patient who did have a recent biopsy and will need to cover for the resistant gram-negative 2-blood cultures repeat has been negative so far 3-patient source of bacteremia is likely liver abscess and will benefit from IR drainage of this abscess to decrease the burden of infection, patient repeat CT abdomen and it shows worsening of the liver necrosis/abscess and the patient is considered to be transferred to tertiary care for the drainage procedure continue with the Zosyn and monitor clinical course closely Time with Patient: Less than 30
--- NOTE | 2023-02-02 15:47 | P.PN ---
Subjective Progress Note Date: 02/02/23 CHIEF COMPLAINT: Abdominal pain HISTORY OF PRESENT ILLNESS: Patient status post paracentesis. They're working on transferring patient to [facility]. Patient process pain is controlled. PHYSICAL EXAM: VITAL SIGNS: Reviewed. GENERAL: Well-developed in no acute distress. ABDOMEN: Distended ASSESSMENT: 1. Metastatic renal cancer to the liver 2. Tumor necrosis 3. Recurrent abdominal ascites PLAN: -No surgical intervention planned -Continue supportive care Physician [employer] note has been reviewed by physician. Signing provider agrees with the documented findings, assessment, and plan of care. Objective - Vital Signs Vital signs: Vital Signs Temp 97.7 F 02/02/23 11:54 Pulse 95 02/02/23 11:54 Resp 18 02/02/23 11:54 BP 114/64 02/02/23 07:51 Pulse Ox 94 L 02/02/23 11:54 FiO2 Intake & Output 02/01/23 02/02/23 02/02/23 18:59 06:59 18:59 Intake Total 780 0 Output Total 900 475 Balance 780 -900 -475 Weight 86.2 kg Intake: Oral 780 0 Output: Urine 900 475 Other: Voiding Method Indwelling Catheter Indwelling Catheter Indwelling Catheter # Bowel Movements 1 - Labs CBC & Chem 7: 01/31/23 05:56 01/31/23 05:56 Labs: Microbiology - Last 24 Hours (Table) 01/27/23 05:31 Blood Culture - Final Blood No Growth after 144 hours 01/28/23 14:50 Anaerobic Culture - Final Ascites Fluid
== END 2023-02-02 18:40 | disposition short-term general hospital (02) | DRG 871 ==
LOC: EC 12:53 → 4SSUR 19:05 → 2SICU 01-26 02:30 → 3SCARD 01-28 18:45
PROVIDERS: ADMIT Family Medicine; ATTEND Family Medicine
PROC: 3E043XZ Introduction of Vasopressor into Central Vein, Percutaneous Approach (ICD-10-PCS; principal; 2023-01-26)
PROC: 0W9G3ZZ Drainage of Peritoneal Cavity, Percutaneous Approach (ICD-10-PCS; 2023-01-28)
PROC: 0W9G3ZZ Drainage of Peritoneal Cavity, Percutaneous Approach (ICD-10-PCS; 2023-01-28)
DX: A41.51 Sepsis due to Escherichia coli [E. coli] (principal); K75.0 Abscess of liver; R65.21 Severe sepsis with septic shock; N17.9 Acute kidney failure, unspecified; C64.1 Malignant neoplasm of right kidney, except renal pelvis; C78.7 Secondary malignant neoplasm of liver and intrahepatic bile duct; R18.8 Other ascites; I10 Essential (primary) hypertension; R09.02 Hypoxemia; M19.90 Unspecified osteoarthritis, unspecified site; R79.1 Abnormal coagulation profile; D64.9 Anemia, unspecified; Z66 Do not resuscitate; R68.0 Hypothermia, not associated with low environmental temperature; R63.4 Abnormal weight loss; B96.89 Other specified bacterial agents as the cause of diseases classified elsewhere; Z85.51 Personal history of malignant neoplasm of bladder; Z85.118 Personal history of other malignant neoplasm of bronchus and lung; Z87.891 Personal history of nicotine dependence; Z85.828 Personal history of other malignant neoplasm of skin; N40.0 Benign prostatic hyperplasia without lower urinary tract symptoms; Z90.5 Acquired absence of kidney; Z68.24 Body mass index [BMI] 24.0-24.9, adult; Z20.822 Contact with and (suspected) exposure to COVID-19; Z28.21 Immunization not carried out because of patient refusal
CPT/HCPCS: 36415; 49083; 71045; 71046; 74160; 74176; 76705; 80048; 80053; 80074; 81001; 82140; 82150; 82248; 82525; 82607; 82747; 83605; 83690; 83735; 85025; 85027; 85610; 85730; 86140; 87040; 87070; 87075; 87077; 87186; 87205; 87635; 89050; 94760; 96361; 96365; 96367; 96368; 99285